=== PATIENT | male | born 1935 | race American Indian/Alaskan Native ===

== ENCOUNTER 2017-02-09 06:52 | Inpatient (IN) | payer MEDICARE, MEDICAID ==
--- NOTE | 2017-02-09 07:10 | C.PDOC ---
History Of Present Illness 82-year-old male, PMHx includes Hypertension, CVA (residual right sided deficit ) Anemia and Dementia, is sent to the emergency department via EMS [facility] with complaints of bleeding from penis for the past two days. All other Hx limited due to clinical condition. PMD Jimy Ryan MD. Time Seen by Provider: 02/09/17 07:10 Chief Complaint (Nursing): Male Genitourinary History Per: EMS History/Exam Limitations: clinical condition Onset/Duration Of Symptoms: Days Current Symptoms Are (Timing): Still Present Past Medical History Reviewed: Historical Data, Nursing Documentation, Vital Signs Vital Signs: Last Vital Signs Temp 99 F 02/09/17 09:43 Pulse 99 H 02/09/17 09:43 Resp 22 02/09/17 09:43 BP 146/71 02/09/17 09:43 Pulse Ox 98 02/09/17 10:14 - Medical History PMH: Anemia, Dementia, HTN Family History: States: Unknown Family Hx - Social History Hx Tobacco Use: No Hx Alcohol Use: No Hx Substance Use: No - Immunization History Hx Tetanus Toxoid Vaccination: No Hx Influenza Vaccination: No Hx Pneumococcal Vaccination: No Review Of Systems Review Of Systems: ROS cannot be obtained secondary to pt's inabilty to answer questions. Respiratory: Negative for: Shortness of Breath Gastrointestinal: Negative for: Vomiting Genitourinary: Positive for: Other (bleeding from meatus) Physical Exam - Physical Exam Appears: Non-toxic, Chronically Ill Skin: Warm, Dry, No Rash Head: Atraumatic, Normacephalic Nose: Normal Oral Mucosa: Moist Lips: Normal Appearing Neck: Supple Cardiovascular: Rhythm Regular Respiratory: Normal Breath Sounds, No Accessory Muscle Use Gastrointestinal/Abdominal: Soft, No Distention, No Guarding, Other (G-tube: upper abdomen) Male Genital: Other (Blood at the meatus but no active bleeding) Neurological/Psych: Other (Non-verbal at baseline. Chronic right sided deficit.) ED Course And Treatment - Laboratory Results Result Diagrams: 02/09/17 09:22 02/09/17 09:22 O2 Sat by Pulse Oximetry: 98 Medical Decision Making Medical Decision Making: gorss hematuria cleared w 3 way catheter irrigation, still having blood tinged urine. [address] Ryan who will admit. consulted Dr Jimenez Disposition - Disposition Disposition: HOSPITALIZED Disposition Time: 10:14 Condition: STABLE - Clinical Impression Clinical Impression: Hematuria - Scribe Statement The provider has reviewed the documentation as recorded by the Tomibmaximino Quintero All medical record entries made by the Tomibe were at my direction and personally dictated by me. I have reviewed the chart and agree that the record accurately reflects my personal performance of the history, physical exam, medical decision making, and the department course for this patient. I have also personally directed, reviewed, and agree with the discharge instructions and disposition.
[2017-02-09 09:31] LABS: MEAN CORPUSCULAR HEMOGLOBIN 32.3 pg (27.0-31.0); MONO # 0.8 K/uL (0.0-0.8)
[2017-02-09 09:38] LABS: BASO # 0.1 K/uL (0.0-0.2); BASO % 0.8 % (0.0-2.0); CHLORIDE 96 mmol/L (98-107); EOS # 0.1 K/uL (0.0-0.7); EOS % 0.7 % (0.0-4.0); LYMPH # 1.2 K/uL (1.0-4.3); LYMPH % 12.7 % (20.0-40.0); MEAN CELL VOLUME 97.7 fL (80.0-94.0); MEAN CORPUSCULAR HGB CONC 33.1 g/dL (33.0-37.0); MEAN PLATELET VOLUME 9.2 fL (7.2-11.7); MONO % 8.2 % (0.0-10.0); POTASSIUM 4.3 mmol/L (3.6-5.2); RED CELL DISTRIBUTION WIDTH 14.8 % (11.5-14.5); SODIUM 134 mmol/L (132-148)
[2017-02-09 09:40] LABS: AST/SGOT 43 U/L (17-59); BILIRUBIN,TOTAL 0.7 mg/dL (0.2-1.3); GFR AFRICAN-AMERICAN > 60; WHITE BLOOD COUNT 9.5 K/uL (4.8-10.8)
[2017-02-09 09:41] LABS: ALB/GLOB RATIO 0.9 (1.0-2.1); ALKALINE PHOSPHATASE 101 U/L (38-126); ALT/SGPT 42 U/L (21-72); BLOOD UREA NITROGEN 18 mg/dL (9-20); CALCIUM 8.8 mg/dl (8.6-10.4); CARBON DIOXIDE 25 mmol/L (22-30); GLUCOSE,RANDOM 128 mg/dL (75-110); TOTAL PROTEIN 7.3 g/dL (6.3-8.3)
[2017-02-09 10:02] LABS: URINE BILIRUBIN NEGATIVE (NEGATIVE); URINE BLOOD LARGE (NEGATIVE); URINE COLOR RED (YELLOW); URINE GLUCOSE (UA) NEGATIVE (Normal); URINE KETONE NEGATIVE (NEGATIVE)
[2017-02-09 10:03] LABS: PH,URINE 7.5 (5.0-8.0); RBC URINE 300 /hpf (0-3); URINE LEUKOCYTE ESTERASE NEGATIVE Leu/uL (Negative); URINE PROTEIN 100 mg/dL (NEGATIVE); URINE UROBILINOGEN 0.2 mg/dL (0.2-1.0); WBC URINE 2 /hpf (0-5)
[2017-02-09] MEDS ORDERED: cefTRIAXone IV 1 gm in Dextros 50 ML IVPB ONE (10:33)
[2017-02-09] MEDS ORDERED: Sodium Chloride 0.9% 1,000 ML ONE (11:19)
[2017-02-09] MEDS: Sodium Chloride 0.9% 1,000 ML IV SCH (11:40)
[2017-02-09] MEDS: Cefepime IV 1 gm in Dextrose 50 ML IVPB SCH ×2 (11:40→19:57)
--- NOTE | 2017-02-09 11:49 | CP.PCM.PN ---
Subjective - Date & Time of Evaluation Date of Evaluation: 02/09/17 Time of Evaluation: 09:35 - Subjective Subjective: Dr. Ryan service: Patient seen and examined in the ED at bedside. Patient is awake and follows some commands but is non verbal. Patient history comes from the nursing staff in the ED and the ED attending. Patient was apprently having 2 days of gross hematuria. Unable to obtain any other history from patient. Per ED staff patient comes from half-way, has history of dementia, is non verbal. Also has history of CVA as well. Per chart review patient had one previous ED visit. After medication reconillationa. He is on several blood pressure medications for blood pressure, Aspirin, and Eliquis and is taking medication via a PEG tube. Objective - Vital Signs/Intake and Output Vital Signs (last 24 hours): Temp Pulse Resp BP Pulse Ox 99 F 90 22 161/80 H 100 02/09/17 09:43 02/09/17 11:41 02/09/17 11:41 02/09/17 11:41 02/09/17 11:41 - Medications Medications: Current Medications Sodium Chloride (Sodium Chloride 0.9%) 1,000 mls @ 70 mls/hr IV .[id number] [facility] Last Admin: 02/09/17 11:40 Dose: 70 mls/hr Cefepime HCl (Maxipime Iv 1 Gm Premix) 50 mls @ 100 mls/hr IVPB Q8H [facility] Last Admin: 02/09/17 11:40 Dose: 100 mls/hr - Constitutional Appears: Non-toxic, No Acute Distress - Eye Exam Eye Exam: Normal appearance - ENT Exam ENT Exam: Normal Exam - Respiratory Exam Respiratory Exam: Clear to Ausculation Bilateral. absent: Rhonchi, Wheezes - Cardiovascular Exam Cardiovascular Exam: REGULAR RHYTHM, RRR, +S1, +S2. absent: Gallop, Rubs - GI/Abdominal Exam GI & Abdominal Exam: Soft, Normal Bowel Sounds Additional comments: Epigastric PEG tube in place - Extremities Exam Extremities Exam: Pedal Edema. absent: Normal Inspection - Neurological Exam Neurological Exam: Alert - Psychiatric Exam Psychiatric exam: Normal Affect, Normal Mood Assessment and Plan (1) Hematuria Assessment & Plan: Patient has a goodrich catheter in place with irrigation. His Hbg is 10.9, about a year ago it was 14.4, will need monitor patient closely. Dr. Jimenez consulted, Cefepime started 1gram Q8H after 1 gram of Rocephin given in the ED. Follow up urine culture, morning cbc, cmp, mag, phos, follow up urine culture Status: Acute (2) Anemia Assessment & Plan: see note on hematuria Status: Acute (3) Dementia Assessment & Plan: continue home medication, put patient on fall precuation. He may need 1:1. Status: Chronic (4) HTN (hypertension) Assessment & Plan: continue home medication Status: Chronic (5) Diabetes mellitus Assessment & Plan: continue home medication, accu checks ACHS with sliding scale as needed. Status: Chronic (6) BPH (benign prostatic hyperplasia) Assessment & Plan: continue Flomax Status: Acute (7) History of CVA (cerebrovascular accident) without residual deficits Assessment & Plan: Hold Aspirin for now, continue her home statin. Patient most likely has a history of Afib if he is on Eliquis and has a history of stroke. Status: Acute (8) Prophylactic measure Assessment & Plan: pepcid 20mg via PEG SCDS hold any Aspirin or anticoagulation due to active bleeding. Will start tube feeding tomorrow. Status: Acute
[2017-02-09] MEDS ORDERED: Magnesium Hydroxide Susp 30 ml UD PEG PRN (14:53)
[2017-02-09] MEDS ORDERED: Loperamide Hydrochloride 1 mg/5 ml Cup PEG PRN (15:32)
--- NOTE | 2017-02-09 16:16 | PCM.URO ---
Urology Progress Note - Objective Lab Results Last 24 Hours: Laboratory Results - last 24 hr 02/09/17 11:39 POC Glucose (mg/dL) 154 H Intake & Output: Intake & Output 02/08/17 02/09/17 02/09/17 18:59 06:59 18:59 Other: Voiding Method 3-way Kapadia with CBI Vital Signs: Vital Signs - 24 hr 02/09/17 02/09/17 02/09/17 10:19 11:41 12:11 Temperature 98.5 F Pulse Rate 90 85 Respiratory 22 20 Rate Blood Pressure 161/80 H 155/69 H O2 Sat by Pulse 98 100 100 Oximetry
[2017-02-09] MEDS ORDERED: (Novolin R) Insulin Human Regular 100 units/ml vial SC SCH (16:30)
[2017-02-09] MEDS: (Novolin R) Insulin Human Regular 100 units/ml vial SC SCH ×2 (17:25→21:43)
[2017-02-10] MEDS: Sodium Chloride 0.9% 1,000 ML IV SCH ×2 (02:00→15:52)
[2017-02-10] MEDS: Cefepime IV 1 gm in Dextrose 50 ML IVPB SCH ×2 (03:10→10:41)
[2017-02-10 07:16] LABS: BASO % 0.2 % (0.0-2.0); HEMATOCRIT 30.6 % (35.0-51.0); LYMPH # 0.9 K/uL (1.0-4.3); LYMPH % 7.5 % (20.0-40.0); MEAN CELL VOLUME 97.3 fL (80.0-94.0); MEAN CORPUSCULAR HEMOGLOBIN 31.4 pg (27.0-31.0); MEAN CORPUSCULAR HGB CONC 32.3 g/dL (33.0-37.0); MEAN PLATELET VOLUME 8.5 fL (7.2-11.7); MONO # 0.9 K/uL (0.0-0.8); MONO % 7.5 % (0.0-10.0); PLATELET COUNT 239 K/uL (130-400); WHITE BLOOD COUNT 12.2 K/uL (4.8-10.8)
[2017-02-10 07:32] LABS: CHLORIDE 97 mmol/L (98-107)
[2017-02-10 07:33] LABS: POTASSIUM 3.7 mmol/L (3.6-5.2); SODIUM 137 mmol/L (132-148)
[2017-02-10 07:35] LABS: ALKALINE PHOSPHATASE 106 U/L (38-126); ALT/SGPT 41 U/L (21-72); AST/SGOT 31 U/L (17-59); BILIRUBIN,TOTAL 0.7 mg/dL (0.2-1.3); BLOOD UREA NITROGEN 20 mg/dL (9-20); CARBON DIOXIDE 26 mmol/L (22-30); GFR AFRICAN-AMERICAN > 60; GLUCOSE,RANDOM 168 mg/dL (75-110); TOTAL PROTEIN 7.2 g/dL (6.3-8.3)
[2017-02-10 07:36] LABS: CALCIUM 8.3 mg/dl (8.6-10.4); MAGNESIUM 1.7 mg/dL (1.6-2.3); PHOSPHOROUS 3.2 mg/dL (2.5-4.5)
[2017-02-10 08:18] LABS: PROSTATE SPECIFIC ANTIGEN 16.8 ng/mL (0.00-4.0)
[2017-02-10] MEDS: (Novolin R) Insulin Human Regular 100 units/ml vial SC SCH ×4 (08:58→23:11)
[2017-02-10 09:03] LABS: NEUTROPHIL 85 % (50-75); TOTAL CELLS COUNTED 100
[2017-02-10 09:04] LABS: LARGE PLATELETS PRESENT
[2017-02-10] MEDS: Cefepime 1 GM in Sodium Chloride 0.9% 100 ML IVPB SCH (20:21)
[2017-02-11] MEDS: Cefepime 1 GM in Sodium Chloride 0.9% 100 ML IVPB SCH ×3 (02:33→18:31)
[2017-02-11] MEDS: (Novolin R) Insulin Human Regular 100 units/ml vial SC SCH ×4 (08:30→21:52)
--- NOTE | 2017-02-11 15:50 | CP.PCM.CON ---
History of Present Illness - History of Present Illness History of Present Illness: 82-year-old male, PMHx includes Hypertension, CVA (residual right sided deficit ) Anemia and Dementia, is sent to the emergency department via EMS from [facility] with complaints of bleeding from penis for the past two days. All other Hx limited due to clinical condition. admitted to r/o uroosepsis , malignancy iv rx and CBI in progress - Medical History PMH: Anemia, Dementia, HTN Family History: States: Unknown Family Hx Review of Systems - Review of Systems Systems not reviewed;Unavailable: Altered Mental Status - Constitutional Constitutional: absent: As Per HPI, Anorexia, Chills, Daytime Sleepiness, Excessive Sweating, Fatigue, Fever, Frequent Falls, Headache, Increased Appetite , Lethargy, Malaise, Night Sweats, Snoring, Sleep Apnea, Weight Gain, Weight Loss, Weakness, Other - EENT Eyes: absent: As Per HPI, Blind Spots, Blurred Vision, Change in Vision, Decreased Night Vision, Diplopia, Discharge, Dry Eye, Exophthalmos, Floaters, Irritation, Itchy Eyes, Loss of Peripheral Vision, Pain, Photophobia, Requires Corrective Lenses, Sees Flashes, Spots in Vision, Tunnel Vision, Other Visual Disturbances, Loss of Vision, Other Ears: absent: As Per HPI, Decreased Hearing, Ear Discharge, Ear Pain, Tinnitus, Abnormal Hearing, Disequilibrium, Dizziness, Other - Cardiovascular Cardiovascular: absent: As Per HPI, Acrocyanosis, Chest Pain, Chest Pain at Rest , Chest Pain with Activity, Claudication, Diaphoresis, Dyspnea, Dyspnea on Exertion, Edema, Irregular Heart Rhythm, Pain Radiating to Arm/Neck/Jaw, Leg Edema, Leg Ulcers, Lightheadedness, Orthopnea, Palpitations, Paroxysmal Nocturnal Dyspnea, Pedal Edema, Radiating Pain, Rapid Heart Rate, Slow Heart Rate, Syncope, Other - Respiratory Respiratory: absent: As Per HPI, Cough, Dyspnea, Hemoptysis, Dyspnea on Exertion , Wheezing, Snoring, Stridor, Pain on Inspiration, Chest Congestion, Excessive Mucous Production, Change in Mucous Color, Pain with Coughing, Other - Gastrointestinal Gastrointestinal: absent: As Per HPI, Abdominal Pain, Belching, Bloating, Change in Bowel Habits, Change in Stool Character, Coffee Ground Emesis, Constipation, Cramping, Diarrhea, Dyspepsia, Dysphagia, Early Satiety, Excessive Flatus, Fecal Incontinence, Heartburn, Hematemesis, Hematochezia, Loose Stools, Melena, Nausea, Odynophagia, Temesmus, Vomiting, Other - Genitourinary Genitourinary: As Per HPI - Musculoskeletal Musculoskeletal: absent: As Per HPI, Abnormal Gait, Arthralgias, Atrophy, Back Pain, Deformity, Joint Swelling, Limited Range of Motion, Loss of Height, Muscle Cramps, Muscle Weakness, Myalgias, Neck Pain, Numbness, Radiating Pain into Limb, Stiffness, Tingling, Other - Integumentary Integumentary: absent: As Per HPI, Acne, Alopecia, Bleeding Lesions, Change in Hair, Change in Nails, Change in Pigmentation, Changing Lesions, Dry Skin, Erythema, Furuncle, Hirsutism, Lesions, New Lesions, Non-Healing Lesions, Photosensitivity, Pruritus, Rash, Skin Pain, Skin Ulcer, Sores, Striae, Swelling , Unusual Bruising, Wounds, Jaundice, Other - Neurological Neurological: absent: As Per HPI, Abnormal Gait, Abnormal Hearing, Abnormal Movements, Abnormal Speech, Behavioral Changes, Burning Sensations, Confusion, Convulsions, Disequilibrium, Dizziness, Numbness, Focal Weakness, Frequent Falls , Headaches, Lack of Coordination, Loss of Vision, Memory Loss, Paresthesias, Radicular Pain, Restless Legs, Sensory Deficit, Syncope, Tingling, Tremor, Vertigo, Weakness, Other Visual Disturbances, Other - Psychiatric Psychiatric: absent: As Per HPI, Abnormal Sleep Pattern, Anhedonia, Anxiety, Auditory Hallucinations, Behavioral Changes, Change in Appetite, Change in Libido, Confusion, Depression, Difficulty Concentrating, Hallucinations, Homicidal Ideation, Hopelessness, Irritability, Memory Loss, Mood Swings, Panic Attacks, Paranoia, Suicidal Ideation, Visual Hallucinations, Tactile Hallucinations, Other - Endocrine Endocrine: absent: As Per HPI, Change in Body Appearance, Change in Libido, Cold Intolorance, Deepening of Voice, Excessive Sweating, Fatigue, Flushing, Heat Intolorance, Increase in Ring/Shoe/Hat Size, Palpitations, Polydipsia, Polyphagia, Polyuria, Other - Hematologic/Lymphatic Hematologic: absent: As Per HPI, Easy Bleeding, Easy Bruising, Lymphadenopathy, Other 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) - ENDOCRINE/METABOLIC Hx Diabetes Mellitus Type 2: Yes - HEMATOLOGICAL/ONCOLOGICAL Hx Anemia: Yes - MUSCULOSKELETAL/RHEUMATOLOGICAL Hx Falls: No - GENITOURINARY/GYNECOLOGICAL Hx Prostate Problems: Yes - PSYCHIATRIC Hx Substance Use: No - SURGICAL HISTORY Hx Orthopedic Surgery: Yes (right hip sx) Other/Comment: g-tube - ANESTHESIA Hx Anesthesia: Yes Hx Anesthesia Reactions: No Meds Allergies/Adverse Reactions: Allergies Allergy/AdvReac Type Severity Reaction Status Date / Time No Known Allergies Allergy Verified 09/04/16 15:50 - Medications Medications: Current Medications Amlodipine Besylate (Norvasc) [address] [facility] Last Admin: 02/11/17 10:37 Dose: 10 mg Apixaban (Eliquis) [address] [facility] Aspirin (Aspirin Chewable) [address] [facility] Doxazosin Mesylate (Cardura) [address] [facility] Last Admin: 02/11/17 10:37 Dose: 2 mg Enalapril Maleate (Vasotec) [address] [facility] Last Admin: 02/10/17 17:40 Dose: 10 mg Famotidine (Pepcid) [address] [facility] Last Admin: 02/11/17 10:37 Dose: 20 mg Hydralazine HCl (Apresoline) [address] [facility] Last Admin: 02/11/17 14:18 Dose: 50 mg Sodium Chloride (Sodium Chloride 0.9%) 1,000 mls @ 70 mls/hr IV .[id number] [facility] Last Admin: 02/10/17 15:52 Dose: 70 mls/hr Cefepime HCl 1 gm/ Sodium (Chloride) 100 mls @ 100 mls/hr IVPB Q8H [facility] Last Admin: 02/11/17 10:36 Dose: 100 mls/hr Insulin Human Regular (Novolin R) [address] [facility] PRN Reason: Protocol Last Admin: 02/11/17 12:04 Dose: Not Given Loperamide HCl (Imodium) 2 mg PEG Q6H PRN PRN Reason: Diarrhea Magnesium Hydroxide (Milk Of Magnesia) 30 ml PEG HS PRN PRN Reason: Constipation Metformin HCl (Glucophage) [address] [facility] Last Admin: 02/11/17 10:37 Dose: 500 mg Metoprolol Tartrate (Lopressor) [address] [facility] Last Admin: 02/11/17 06:26 Dose: Not Given Rosuvastatin Calcium (Crestor) [address] [facility] Last Admin: 02/10/17 21:44 Dose: 40 mg Physical Exam - Constitutional Appears: Confused, Chronically Ill - Head Exam Head Exam: ATRAUMATIC, NORMAL INSPECTION, NORMOCEPHALIC - Eye Exam Eye Exam: PERRL. absent: Scleral icterus Pupil Exam: NORMAL ACCOMODATION - ENT Exam ENT Exam: Mucous Membranes Dry, Normal External Ear Exam - Neck Exam Neck exam: Negative for: Lymphadenopathy - Respiratory Exam Respiratory Exam: Decreased Breath Sounds, Rhonchi - Cardiovascular Exam Cardiovascular Exam: REGULAR RHYTHM, +S1, +S2 - GI/Abdominal Exam GI & Abdominal Exam: Diminished Bowel Sounds, Soft. absent: Tenderness - Rectal Exam Rectal Exam: Deferred - Exam Exam: NORMAL INSPECTION - Extremities Exam Extremities exam: Positive for: pedal pulses present. Negative for: calf tenderness, pedal edema, tenderness - Back Exam Back exam: absent: CVA tenderness (L), CVA tenderness (R), paraspinal tenderness - Neurological Exam Neurological exam: Alert, Altered, CN II-XII Intact - Psychiatric Exam Psychiatric exam: Depressed - Skin Skin Exam: Dry Results - Vital Signs Recent Vital Signs: Last Vital Signs Temp 98.8 F 02/11/17 15:22 Pulse 76 02/11/17 15:22 Resp 20 02/11/17 15:22 BP 149/75 02/11/17 15:22 Pulse Ox 100 02/11/17 15:22 - Labs Result Diagrams: 02/10/17 07:08 02/10/17 07:08 Labs: Laboratory Results - last 24 hr 02/10/17 02/10/17 02/11/17 16:32 21:32 06:19 POC Glucose (mg/dL) 127 H 127 H 104 02/11/17 11:30 POC Glucose (mg/dL) 129 H Assessment & Plan (1) Anemia Status: Acute (2) BPH (benign prostatic hyperplasia) Status: Acute (3) CAD (coronary artery disease) Status: Acute (4) Hematuria Status: Acute (5) History of CVA (cerebrovascular accident) without residual deficits Status: Acute (6) Diabetes mellitus Status: Chronic (7) HTN (hypertension) Status: Chronic (8) UTI (urinary tract infection) Status: Acute - Assessment and Plan (Free Text) Assessment: orders written will folllow
[2017-02-11] MEDS: Sodium Chloride 0.9% 1,000 ML IV SCH (19:42)
[2017-02-12] MEDS: Cefepime 1 GM in Sodium Chloride 0.9% 100 ML IVPB SCH ×3 (04:10→18:36)
[2017-02-12] MEDS: Sodium Chloride 0.9% 1,000 ML IV SCH ×2 (05:35→11:05)
[2017-02-12] MEDS: (Novolin R) Insulin Human Regular 100 units/ml vial SC SCH ×4 (07:33→21:41)
[2017-02-12 08:20] LABS: BASO # 0.1 K/uL (0.0-0.2); BASO % 0.8 % (0.0-2.0); EOS # 0.2 K/uL (0.0-0.7); EOS % 1.9 % (0.0-4.0); LYMPH # 1.2 K/uL (1.0-4.3); LYMPH % 13.2 % (20.0-40.0); MEAN CELL VOLUME 97.8 fL (80.0-94.0); MEAN CORPUSCULAR HEMOGLOBIN 32.2 pg (27.0-31.0); MEAN CORPUSCULAR HGB CONC 32.9 g/dL (33.0-37.0); MEAN PLATELET VOLUME 8.7 fL (7.2-11.7); MONO # 0.8 K/uL (0.0-0.8); MONO % 8.8 % (0.0-10.0); NRBC % 0.1 % (0.0-2.0); WHITE BLOOD COUNT 9.2 K/uL (4.8-10.8)
[2017-02-12 08:22] LABS: INR 1.2
[2017-02-12 08:25] LABS: CHLORIDE 103 mmol/L (98-107)
[2017-02-12 08:26] LABS: POTASSIUM 3.5 mmol/L (3.6-5.2); SODIUM 138 mmol/L (132-148)
[2017-02-12 08:28] LABS: BILIRUBIN,TOTAL 0.5 mg/dL (0.2-1.3); GFR AFRICAN-AMERICAN > 60
[2017-02-12 08:29] LABS: ALB/GLOB RATIO 0.9 (1.0-2.1); ALKALINE PHOSPHATASE 78 U/L (38-126); ALT/SGPT 39 U/L (21-72); AST/SGOT 34 U/L (17-59); BLOOD UREA NITROGEN 21 mg/dL (9-20); CALCIUM 8.2 mg/dl (8.6-10.4); CARBON DIOXIDE 22 mmol/L (22-30); GLUCOSE,RANDOM 92 mg/dL (75-110)
[2017-02-12] MEDS ORDERED: Potassium Chloride 20 mEq/15 ml LIQ UD PEG ONE (08:29)
--- NOTE | 2017-02-12 08:29 | CP.PCM.PN ---
Subjective - Date & Time of Evaluation Date of Evaluation: 02/12/17 Time of Evaluation: 07:15 - Subjective Subjective: PGY2 Medicine Note - Dr. Ryan's service: Patient seen and examined at bedside this AM. Patient not following commands. Patient localizes pain. Patient is nonverbal. Unable to obtain ROS. Objective - Vital Signs/Intake and Output Vital Signs (last 24 hours): Temp Pulse Resp BP Pulse Ox 98.4 F 86 20 154/74 H 96 02/12/17 00:00 02/12/17 00:00 02/12/17 00:00 02/12/17 05:38 02/12/17 00:00 Intake and Output: 02/12/17 02/12/17 06:59 18:59 Intake Total 4130 Output Total 3950 600 Balance 180 -600 - Medications Medications: Current Medications Amlodipine Besylate (Norvasc) 10 mg PEG DAILY [facility] Last Admin: 02/11/17 10:37 Dose: 10 mg Apixaban (Eliquis) 5 mg PEG BID [facility] Aspirin (Aspirin Chewable) 81 mg PEG BID [facility] Doxazosin Mesylate (Cardura) 2 mg PEG DAILY [facility] Last Admin: 02/11/17 10:37 Dose: 2 mg Enalapril Maleate (Vasotec) 10 mg GT Q12H [facility] Last Admin: 02/12/17 05:34 Dose: 10 mg Famotidine (Pepcid) 20 mg PEG DAILY [facility] Last Admin: 02/11/17 10:37 Dose: 20 mg Hydralazine HCl (Apresoline) 50 mg PEG Q8H [facility] Last Admin: 02/12/17 07:28 Dose: 50 mg Sodium Chloride (Sodium Chloride 0.9%) 1,000 mls @ 70 mls/hr IV .[id number] [facility] Last Admin: 02/12/17 05:35 Dose: 70 mls/hr Cefepime HCl 1 gm/ Sodium (Chloride) 100 mls @ 100 mls/hr IVPB Q8H [facility] Last Admin: 02/12/17 04:10 Dose: 100 mls/hr Insulin Human Regular (Novolin R) 0 unit SC ACHS [facility] PRN Reason: Protocol Last Admin: 02/12/17 07:33 Dose: Not Given Loperamide HCl (Imodium) 2 mg PEG Q6H PRN PRN Reason: Diarrhea Magnesium Hydroxide (Milk Of Magnesia) 30 ml PEG HS PRN PRN Reason: Constipation Metformin HCl (Glucophage) 500 mg PEG BID [facility] Last Admin: 02/11/17 17:32 Dose: 500 mg Metoprolol Tartrate (Lopressor) 75 mg PEG Q12H [facility] Last Admin: 02/12/17 05:38 Dose: 75 mg Rosuvastatin Calcium (Crestor) 40 mg PEG HS [facility] Last Admin: 02/11/17 21:54 Dose: 40 mg - Labs Labs: 02/10/17 07:08 02/10/17 07:08 - Constitutional Appears: Non-toxic, No Acute Distress, Chronically Ill - Head Exam Head Exam: NORMAL INSPECTION - Eye Exam Eye Exam: Normal appearance - ENT Exam ENT Exam: Mucous Membranes Moist - Respiratory Exam Respiratory Exam: Clear to Ausculation Bilateral, NORMAL BREATHING PATTERN. absent: Rales, Rhonchi, Wheezes - Cardiovascular Exam Cardiovascular Exam: REGULAR RHYTHM, +S1, +S2 - GI/Abdominal Exam GI & Abdominal Exam: Soft, Tenderness, Normal Bowel Sounds - Extremities Exam Extremities Exam: Pedal Edema (2+) - Neurological Exam Neurological Exam: Awake. absent: Oriented x3 - Skin Skin Exam: Normal Color, Warm Assessment and Plan - Assessment and Plan (Free Text) Assessment: (1) Hematuria Assessment & Plan: Patient has a goodrich catheter in place with irrigation. Hgb has dropped to 8.2 today from 10.9 on admission. Monitor closely - CBC Q8H. Type and cross placed. urine culture negative Dr. Jimenez consulted, Cefepime started 1gram Q8H after 1 gram of Rocephin given in the ED. Status: Acute (2) Anemia Assessment & Plan: macrocytic increased RDW see note on hematuria Status: Acute (3) Dementia Assessment & Plan: continue home medication, put patient on fall precuation. He may need 1:1. Status: Chronic (4) HTN (hypertension) Assessment & Plan: continue home medication Status: Chronic (5) Diabetes mellitus Assessment & Plan: continue home medication, accu checks ACHS with sliding scale as needed. Status: Chronic (6) BPH (benign prostatic hyperplasia) Assessment & Plan: continue Flomax Status: Acute (7) History of CVA (cerebrovascular accident) without residual deficits Assessment & Plan: Hold Aspirin for now, continue home statin. Patient most likely has a history of Afib if he is on Eliquis and has a history of stroke. Status: Acute (8) Prophylactic measure Assessment & Plan: pepcid 20mg via PEG SCDS hold any Aspirin or anticoagulation due to active bleeding. tube feeding Status: Acute
[2017-02-12] MEDS ORDERED: Potassium Chloride 20 mEq 100 ML IVPB ONE (08:58)
--- NOTE | 2017-02-12 09:17 | PN ---
DATE: 02/10/2017 The patient is complaining of abdominal pain and chest discomfort, bronchodilator given, supportive c are. Jimy Saucedo MD cc: [id number] TT: 02/11/2017 00:47:38 Confirmation # [id number] Dictation # [id number] 02/12/2017 08:16:39
--- NOTE | 2017-02-12 12:06 | CP.PCM.PN ---
Subjective - Date & Time of Evaluation Date of Evaluation: 02/12/17 Time of Evaluation: 09:00 - Subjective Subjective: weak but nad afebrile iv rx in progress culturees reviewed Objective - Vital Signs/Intake and Output Vital Signs (last 24 hours): Temp Pulse Resp BP Pulse Ox 98.2 F 73 20 147/75 98 02/12/17 10:13 02/12/17 10:13 02/12/17 10:13 02/12/17 10:13 02/12/17 10:13 Intake and Output: 02/12/17 02/12/17 06:59 18:59 Intake Total 4130 Output Total 3950 600 Balance 180 -600 - Medications Medications: Current Medications Amlodipine Besylate (Norvasc) 10 mg PEG DAILY [facility] Last Admin: 02/12/17 09:19 Dose: Not Given Apixaban (Eliquis) 5 mg PEG BID [facility] Aspirin (Aspirin Chewable) 81 mg PEG BID [facility] Doxazosin Mesylate (Cardura) 2 mg PEG DAILY [facility] Last Admin: 02/12/17 09:19 Dose: Not Given Enalapril Maleate (Vasotec) 10 mg GT Q12H [facility] Last Admin: 02/12/17 05:34 Dose: 10 mg Famotidine (Pepcid) 20 mg PEG DAILY [facility] Last Admin: 02/12/17 09:40 Dose: Not Given Hydralazine HCl (Apresoline) 50 mg PEG Q8H [facility] Last Admin: 02/12/17 07:28 Dose: 50 mg Sodium Chloride (Sodium Chloride 0.9%) 1,000 mls @ 70 mls/hr IV .[id number] [facility] Last Admin: 02/12/17 11:05 Dose: Not Given Cefepime HCl 1 gm/ Sodium (Chloride) 100 mls @ 100 mls/hr IVPB Q8H [facility] Last Admin: 02/12/17 11:48 Dose: 100 mls/hr Insulin Human Regular (Novolin R) 0 unit SC ACHS [facility] PRN Reason: Protocol Last Admin: 02/12/17 07:33 Dose: Not Given Loperamide HCl (Imodium) 2 mg PEG Q6H PRN PRN Reason: Diarrhea Magnesium Hydroxide (Milk Of Magnesia) 30 ml PEG HS PRN PRN Reason: Constipation Metformin HCl (Glucophage) 500 mg PEG BID [facility] Last Admin: 02/12/17 09:19 Dose: Not Given Metoprolol Tartrate (Lopressor) 75 mg PEG Q12H [facility] Last Admin: 02/12/17 05:38 Dose: 75 mg Rosuvastatin Calcium (Crestor) 40 mg PEG HS [facility] Last Admin: 02/11/17 21:54 Dose: 40 mg - Labs Labs: 02/12/17 08:12 02/12/17 08:12 PT 13.8 SECONDS (9.7-12.2) H 02/12/17 08:12 INR 1.2 02/12/17 08:12 - Constitutional Appears: Non-toxic, Cachectic, Chronically Ill - Head Exam Head Exam: NORMOCEPHALIC - Eye Exam Eye Exam: absent: Scleral icterus - ENT Exam ENT Exam: Mucous Membranes Dry - Neck Exam Neck Exam: absent: Lymphadenopathy - Respiratory Exam Respiratory Exam: Decreased Breath Sounds, Rhonchi - Cardiovascular Exam Cardiovascular Exam: REGULAR RHYTHM, +S1, +S2 - GI/Abdominal Exam GI & Abdominal Exam: Distended, Soft - Rectal Exam Rectal Exam: Deferred - Exam Exam: NORMAL INSPECTION - Extremities Exam Extremities Exam: absent: Pedal Edema - Back Exam Back Exam: absent: CVA tenderness (L), CVA tenderness (R) - Neurological Exam Neurological Exam: Alert, Altered, Awake Assessment and Plan (1) Anemia Status: Acute (2) BPH (benign prostatic hyperplasia) Status: Acute (3) CAD (coronary artery disease) Status: Acute (4) Hematuria Status: Acute (5) History of CVA (cerebrovascular accident) without residual deficits Status: Acute (6) Diabetes mellitus Status: Chronic (7) HTN (hypertension) Status: Chronic (8) UTI (urinary tract infection) Status: Acute
[2017-02-12 14:21] LABS: HEMATOCRIT 26.2 % (35.0-51.0); MEAN CELL VOLUME 98.5 fL (80.0-94.0); MEAN CORPUSCULAR HEMOGLOBIN 31.6 pg (27.0-31.0); MEAN CORPUSCULAR HGB CONC 32.1 g/dL (33.0-37.0); MEAN PLATELET VOLUME 8.8 fL (7.2-11.7); WHITE BLOOD COUNT 10.1 K/uL (4.8-10.8)
--- NOTE | 2017-02-12 15:54 | PCM.URO ---
Urology Progress Note - Objective Lab Results Last 24 Hours: Laboratory Results - last 24 hr 02/11/17 02/11/17 02/12/17 16:40 21:26 07:50 WBC RBC Hgb Hct MCV MCH MCHC RDW Plt Count MPV Neut % (Auto) Lymph % (Auto) Glades % (Auto) Eos % (Auto) Baso % (Auto) Neut # Lymph # Glades # Eos # Baso # PT INR Sodium Potassium Chloride Carbon Dioxide Anion Gap BUN Creatinine Est GFR ( Amer) Est GFR (Non-Af Amer) POC Glucose (mg/dL) 127 H 129 H 103 Random Glucose Calcium Total Bilirubin AST ALT Alkaline Phosphatase Total Protein Albumin Globulin Albumin/Globulin Ratio Blood Type Antibody Screen Antibody Identification Antigen Identification 02/12/17 02/12/17 02/12/17 08:12 11:58 12:07 WBC 9.2 RBC 2.56 L Hgb 8.2 L Hct 25.0 L MCV 97.8 H MCH 32.2 H MCHC 32.9 L RDW 15.0 H Plt Count 204 MPV 8.7 Neut % (Auto) 75.3 H Lymph % (Auto) 13.2 L Glades % (Auto) 8.8 Eos % (Auto) 1.9 Baso % (Auto) 0.8 Neut # 6.9 Lymph # 1.2 Glades # 0.8 Eos # 0.2 Baso # 0.1 PT 13.8 H INR 1.2 Sodium 138 Potassium 3.5 L Chloride 103 Carbon Dioxide 22 Anion Gap 17 BUN 21 H Creatinine 0.7 L Est GFR ( Amer) > 60 Est GFR (Non-Af Amer) > 60 POC Glucose (mg/dL) 95 Random Glucose 92 Calcium 8.2 L Total Bilirubin 0.5 AST 34 ALT 39 Alkaline Phosphatase 78 Total Protein 6.0 L Albumin 2.8 L Globulin 3.2 Albumin/Globulin Ratio 0.9 L Blood Type O POSITIVE Antibody Screen Positive Antibody Identification Anti K Antigen Identification K Antigen - NEGATIVE 02/12/17 14:05 WBC 10.1 RBC 2.66 L Hgb 8.4 L Hct 26.2 L MCV 98.5 H MCH 31.6 H MCHC 32.1 L RDW 15.0 H Plt Count 214 MPV 8.8 Neut % (Auto) Lymph % (Auto) Glades % (Auto) Eos % (Auto) Baso % (Auto) Neut # Lymph # Glades # Eos # Baso # PT INR Sodium Potassium Chloride Carbon Dioxide Anion Gap BUN Creatinine Est GFR ( Amer) Est GFR (Non-Af Amer) POC Glucose (mg/dL) Random Glucose Calcium Total Bilirubin AST ALT Alkaline Phosphatase Total Protein Albumin Globulin Albumin/Globulin Ratio Blood Type Antibody Screen Antibody Identification Antigen Identification Intake & Output: Intake & Output 02/11/17 02/12/17 02/12/17 18:59 06:59 18:59 Intake Total 1140 4130 33652 Output Total 2950 3950 08059 Balance -1810 180 -200 Intake: Intake, IV Amount 760 470 Right 760 470 Oral 100 100 Tube Feeding 280 310 Other 3250 12589 Output: Urine 2950 3950 87854 Urethral (Kapadia) 2950 350 600 Other: # Bowel Movements 0 1 Vital Signs: Vital Signs - 24 hr 02/11/17 02/11/17 02/11/17 17:32 17:34 22:54 Temperature Pulse Rate 87 Respiratory Rate Blood Pressure 153/67 H 153/67 H 144/54 L O2 Sat by Pulse Oximetry 02/12/17 02/12/17 02/12/17 00:00 05:34 05:38 Temperature 98.4 F Pulse Rate 86 Respiratory 20 Rate Blood Pressure 130/64 154/74 H 154/74 H O2 Sat by Pulse 96 Oximetry 02/12/17 10:13 Temperature 98.2 F Pulse Rate 73 Respiratory 20 Rate Blood Pressure 147/75 O2 Sat by Pulse 98 Oximetry
--- NOTE | 2017-02-12 16:14 | PN ---
DATE: 02/12/2017 FURTHER HISTORY: Please see the history and physical, consultation, operative reports, consultation notes and updated progress notes. I have had a further chance to speak to the patient's . The patient's history from him is not as perfectly reliable. The patient's reports that he has a history of urethral stricture disease. We apparently did so me dilations, need to check some of those records in that regard. But, for now, the patient has been comfortable and resting comfortably. Our plan is with the gross hematuria and the urinary dysfunction. See the plan listed below. PHYSICAL EXAMINATION: GENERAL: Well-nourished male in no apparent distress, currently resting comfortably. ABDOMEN: Difficult to evaluate, but it may be slightly distended. There is no evidence of an acute abdomen, rebound, guarding, etc. The remainder of the exam, the patient has a normal male phallus. The catheter looks like it is okay . The CBI is not going very quickly. LABORATORY DATA: See chart. DIAGNOSES: Gross hematuria, urinary retention, voiding dysfunction, urethral stricture disease. PLAN: As follows: We are going to plan for a cysto IOU. We even thinking of doing it today. Based on scheduling reasons we would like to but for various mark eduling operating room reasons and the schedule reasons, we are not able to continue this now. So, therefore, especially at 82 years old, I have made a decision with the patient's , especially I discussed with her. We are going to feed the patient and then we are going to keep him n.p.o. and try to do the procedure first thing tomorrow morning on 02/13. Further plans will follow. Alec Jimenez MD cc: [phone] TT: 02/12/2017 16:14:39 Confirmation # [id number] Dictation # [id number] sn
--- NOTE | 2017-02-12 16:20 | PN ---
DATE: 02/11/2017 Please see the previously notes from consult from 02/09/2017. The patient is resting comfortably. Actually no interim complaints. The patient has gross hematuria. PHYSICAL EXAMINATION: GENERAL: In no apparent distress. VITAL SIGNS: Noted. GENITOURINARY: Kapadia catheter is in place. LABORATORY DATA: See chart. DIAGNOSES: Gross hematuria, urinary dysfunction, I believe history of urethral stricture. PLAN: The plan is as before. Will speak to the and will plan out the timing for a cystoscopy. We are going to shoot for 02/12/2017 if possible, depending on the schedule and the patient's clinic al course. Alec Jimenez MD cc: [id number] TT: 02/12/2017 16:19:47 Confirmation # [id number] Dictation # [id number] mn
--- NOTE | 2017-02-12 16:25 | CON ---
DATE: 02/09/2017 REASON FOR CONSULTATION: Hematuria. The patient's name is familiar to me. The patient is currently resting in his bed with a Kapadia. The consultation is for gross hematuria. See my plan below. PAST MEDICAL AND SURGICAL HISTORY: As listed on the chart. The patient is not able to give adequate history. SOCIAL HISTORY: He is . Apparently his was here earlier. REVIEW OF SYSTEMS: Listed above in the chart. PHYSICAL EXAMINATION: GENERAL: Well-nourished male in no apparent distress. GENITOURINARY: The abdomen is relatively difficult to tell if there is gross distention. He has a F oley catheter, a 3-way, in place. It does not look to be externally sitting too far out at the meatu s. It does seem to be draining. The CBI is connected but barely going. LABORATORIES: See chart. DIAGNOSES: Gross hematuria, anemia (low), and multiple medical issues. So I am going to begin to check my records. To my recollection, this is a very pleasant 82-year-old gentleman. He is lying here, comfortable, in no apparent distress. Vital signs are within normal li mits. We are going to investigate further. See what previous notes I have. I believe this patient has been seen previously with urethral stricture disease and will need to work this up and check out further information. I will plan to talk to his and see if we can obtain previous medical recor ds. In the interim, leave the Kapadia catheter in place. Will follow along. Thank you for the urology consult. Alec Jimenez MD cc: [id number] TT: 02/12/2017 16:25:29 Confirmation # [id number] Dictation # [id number] mn
[2017-02-13] MEDS: Cefepime 1 GM in Sodium Chloride 0.9% 100 ML IVPB SCH ×3 (02:32→20:36)
[2017-02-13] MEDS: Sodium Chloride 0.9% 1,000 ML IV SCH (02:34)
[2017-02-13 04:16] LABS: MEAN CELL VOLUME 98.3 fL (80.0-94.0); MEAN CORPUSCULAR HEMOGLOBIN 32.6 pg (27.0-31.0); MEAN CORPUSCULAR HGB CONC 33.1 g/dL (33.0-37.0); MEAN PLATELET VOLUME 8.1 fL (7.2-11.7); RED CELL DISTRIBUTION WIDTH 14.9 % (11.5-14.5); WHITE BLOOD COUNT 7.8 K/uL (4.8-10.8)
[2017-02-13 04:19] LABS: CHLORIDE 105 mmol/L (98-107)
[2017-02-13 04:20] LABS: POTASSIUM 3.5 mmol/L (3.6-5.2); SODIUM 138 mmol/L (132-148)
[2017-02-13 04:22] LABS: ALB/GLOB RATIO 0.9 (1.0-2.1); AST/SGOT 33 U/L (17-59); BILIRUBIN,TOTAL 0.4 mg/dL (0.2-1.3); BLOOD UREA NITROGEN 20 mg/dL (9-20); CARBON DIOXIDE 24 mmol/L (22-30); GFR AFRICAN-AMERICAN > 60; TOTAL PROTEIN 5.8 g/dL (6.3-8.3)
[2017-02-13 04:23] LABS: ALKALINE PHOSPHATASE 80 U/L (38-126); ALT/SGPT 43 U/L (21-72); CALCIUM 8.2 mg/dl (8.6-10.4); GLUCOSE,RANDOM 94 mg/dL (75-110)
[2017-02-13] MEDS ORDERED: Potassium Chloride 20 mEq 100 ML IVPB ONE (06:12)
[2017-02-13] MEDS: (Novolin R) Insulin Human Regular 100 units/ml vial SC SCH ×4 (07:36→21:21)
[2017-02-13] MEDS ORDERED: Etomidate 20 mg/10ml Inj IV ONE (07:52)
[2017-02-13] MEDS ORDERED: Propofol 10 mg/ml Inj (20 ML) ONE (08:06)
[2017-02-13] MEDS ORDERED: HYDROmorphone 0.5 mg/0.5 ml ISec IVP PRN ×2 (08:18→08:29)
[2017-02-13] MEDS ORDERED: Lactated Ringer's 1,000 ML IV ONE (08:23)
[2017-02-13] MEDS ORDERED: Potassium Chloride 20 mEq/15 ml LIQ UD PO SCH (10:00)
--- NOTE | 2017-02-13 11:20 | CP.PCM.PN ---
Subjective - Date & Time of Evaluation Date of Evaluation: 02/13/17 Time of Evaluation: 09:30 - Subjective Subjective: PGY2 Medicine Note - Dr. Ryan's service: Patient seen and examined at bedside this AM. Patient not following commands. Patient localizes pain. Patient is nonverbal. Unable to obtain ROS. Per nursing, patient has been having diarrhea. Objective - Vital Signs/Intake and Output Vital Signs (last 24 hours): Temp Pulse Resp BP Pulse Ox 97.9 F 65 20 139/65 97 02/13/17 09:56 02/13/17 09:56 02/13/17 09:56 02/13/17 09:56 02/13/17 09:56 Intake and Output: 02/13/17 02/13/17 06:59 18:59 Intake Total 3210 650 Output Total 2900 1400 Balance 310 -750 - Medications Medications: Current Medications Amlodipine Besylate (Norvasc) 10 mg PEG DAILY [facility] Last Admin: 02/12/17 09:19 Dose: Not Given Aspirin (Aspirin Chewable) 81 mg PEG BID [facility] Doxazosin Mesylate (Cardura) 2 mg PEG DAILY [facility] Last Admin: 02/12/17 09:19 Dose: Not Given Enalapril Maleate (Vasotec) 10 mg GT Q12H [facility] Last Admin: 02/13/17 06:03 Dose: Not Given Famotidine (Pepcid) 20 mg PEG DAILY [facility] Last Admin: 02/12/17 09:40 Dose: Not Given Hydralazine HCl (Apresoline) 50 mg PEG Q8H [facility] Last Admin: 02/13/17 06:01 Dose: Not Given Sodium Chloride (Sodium Chloride 0.9%) 1,000 mls @ 70 mls/hr IV .[id number] [facility] Last Admin: 02/13/17 02:34 Dose: 70 mls/hr Cefepime HCl 1 gm/ Sodium (Chloride) 100 mls @ 100 mls/hr IVPB Q8H [facility] Last Admin: 02/13/17 02:32 Dose: 100 mls/hr Insulin Human Regular (Novolin R) 0 unit SC ACHS [facility] PRN Reason: Protocol Last Admin: 02/13/17 07:36 Dose: Not Given Loperamide HCl (Imodium) 2 mg PEG Q6H PRN PRN Reason: Diarrhea Magnesium Hydroxide (Milk Of Magnesia) 30 ml PEG HS PRN PRN Reason: Constipation Metformin HCl (Glucophage) 500 mg PEG BID [facility] Last Admin: 02/12/17 17:30 Dose: 500 mg Metoprolol Tartrate (Lopressor) 75 mg PEG Q12H [facility] Last Admin: 02/13/17 05:55 Dose: Not Given Rosuvastatin Calcium (Crestor) 40 mg PEG HS [facility] Last Admin: 02/12/17 21:43 Dose: 40 mg - Labs Labs: 02/13/17 04:11 02/13/17 04:11 PT 13.8 SECONDS (9.7-12.2) H 02/12/17 08:12 INR 1.2 02/12/17 08:12 - Constitutional Appears: Non-toxic, No Acute Distress - Head Exam Head Exam: NORMAL INSPECTION - Eye Exam Eye Exam: EOMI - ENT Exam ENT Exam: Mucous Membranes Moist - Respiratory Exam Respiratory Exam: Clear to Ausculation Bilateral, NORMAL BREATHING PATTERN. absent: Rales, Rhonchi, Wheezes - Cardiovascular Exam Cardiovascular Exam: REGULAR RHYTHM, +S1, +S2 - GI/Abdominal Exam GI & Abdominal Exam: Soft, Normal Bowel Sounds. absent: Tenderness - Extremities Exam Extremities Exam: Normal Capillary Refill. absent: Pedal Edema - Neurological Exam Neurological Exam: Alert - Skin Skin Exam: Normal Color, Warm Assessment and Plan - Assessment and Plan (Free Text) Assessment: Hematuria Assessment & Plan: Cystoscopy showed uretheral damage Goodrich replaced Patient has a goodrich catheter in place with irrigation. Hgb has dropped to 8.2 today from 10.9 on admission. Monitor closely - CBC Q8H. Type and cross placed. urine culture negative Dr. Jimenez consulted, Cefepime started 1gram Q8H after 1 gram of Rocephin given in the ED. Status: Acute Anemia Assessment & Plan: macrocytic increased RDW Transfuse 2 units pRBCs today see note on hematuria Status: Acute Diarrhea Assessment & Plan: F/U c diff and stool studies Status: Acute Dementia Assessment & Plan: continue home medication, put patient on fall precuation. He may need 1:1. Status: Chronic HTN (hypertension) Assessment & Plan: continue home medication Status: Chronic Diabetes mellitus Assessment & Plan: continue home medication, accu checks ACHS with sliding scale as needed. 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 Patient most likely has a history of Afib if he is on Eliquis and has a history of stroke. Status: Acute Prophylactic measure Assessment & Plan: pepcid 20mg via PEG SCDS hold any Aspirin or anticoagulation due to active bleeding. tube feeding Status: Acute
[2017-02-14 01:42] LABS: HEMATOCRIT 31.4 % (35.0-51.0); MEAN CELL VOLUME 95.2 fL (80.0-94.0); MEAN CORPUSCULAR HGB CONC 32.6 g/dL (33.0-37.0); MEAN PLATELET VOLUME 8.8 fL (7.2-11.7); RED CELL DISTRIBUTION WIDTH 15.8 % (11.5-14.5); WHITE BLOOD COUNT 11.2 K/uL (4.8-10.8)
[2017-02-14] MEDS: Cefepime 1 GM in Sodium Chloride 0.9% 100 ML IVPB SCH (02:00)
[2017-02-14] MEDS: Sodium Chloride 0.9% 1,000 ML IV SCH (05:20)
[2017-02-14] MEDS: (Novolin R) Insulin Human Regular 100 units/ml vial SC SCH ×4 (07:43→21:35)
[2017-02-14 08:07] LABS: BASO # 0.1 K/uL (0.0-0.2); BASO % 0.6 % (0.0-2.0); EOS # 0.2 K/uL (0.0-0.7); EOS % 1.8 % (0.0-4.0); HEMATOCRIT 30.7 % (35.0-51.0); LYMPH # 1.2 K/uL (1.0-4.3); LYMPH % 11.6 % (20.0-40.0); MEAN CELL VOLUME 93.9 fL (80.0-94.0); MEAN CORPUSCULAR HEMOGLOBIN 31.5 pg (27.0-31.0); MEAN CORPUSCULAR HGB CONC 33.6 g/dL (33.0-37.0); MEAN PLATELET VOLUME 8.2 fL (7.2-11.7); MONO # 0.8 K/uL (0.0-0.8); MONO % 7.9 % (0.0-10.0); NRBC % 0.4 % (0.0-2.0); RED CELL DISTRIBUTION WIDTH 16.3 % (11.5-14.5); WHITE BLOOD COUNT 10.5 K/uL (4.8-10.8)
[2017-02-14 08:16] LABS: CHLORIDE 105 mmol/L (98-107); SODIUM 140 mmol/L (132-148)
[2017-02-14 08:17] LABS: POTASSIUM 3.6 mmol/L (3.6-5.2)
[2017-02-14 08:19] LABS: ALB/GLOB RATIO 0.9 (1.0-2.1); ALKALINE PHOSPHATASE 97 U/L (38-126); ALT/SGPT 32 U/L (21-72); AST/SGOT 28 U/L (17-59); BILIRUBIN,TOTAL 0.5 mg/dL (0.2-1.3); BLOOD UREA NITROGEN 18 mg/dL (9-20); CARBON DIOXIDE 23 mmol/L (22-30); GFR AFRICAN-AMERICAN > 60; GLUCOSE,RANDOM 112 mg/dL (75-110)
[2017-02-14 08:20] LABS: CALCIUM 8.4 mg/dl (8.6-10.4)
[2017-02-14] MEDS ORDERED: Albuterol-Ipratrop 3 mg / 0.5 (3 ml) UD INH ONE (09:06)
--- NOTE | 2017-02-14 09:56 | RAD ---
HISTORY: accessory muscle use, dyspnea COMPARISON: No prior. FINDINGS: LUNGS: Ill-defined left basilar opacity. Right suprahilar opacity, ill-defined.o Possible early pneumonia. Followup advised. No abnormal opacity seen elsewhere. PLEURA: Questionable right pneumothorax versus skin fold. Expiratory chest radiography is advised to exclude pneumothorax. Minimal blunting left costophrenic angle may reflect pleural effusion. Right costophrenic angle clear. CARDIOVASCULAR: Normal heart size. Congestive change. OSSEOUS STRUCTURES: No significant abnormalities. VISUALIZED UPPER ABDOMEN: Normal. OTHER FINDINGS: None. IMPRESSION: The possible early multifocal pneumonia. Possible pneumothorax along right lateral pleural surface versus skin fold. Recommend expiratory chest radiograph for further evaluation. Probable small left pleural effusion. The finding this examination recommended for this examination and recommendation for additional chest radiography was discussed with the nurse caring for this patient, Layla , at 9:54 a.m. on 02/14/2017.
--- NOTE | 2017-02-14 10:53 | CP.PCM.PN ---
Subjective - Date & Time of Evaluation Date of Evaluation: 02/13/17 Time of Evaluation: 08:45 - Subjective Subjective: PGY2 Medicine Note - Dr. Ryan's service: Patient seen and examined at bedside this AM. Patient not following commands. Patient localizes pain. Patient is nonverbal. Unable to obtain ROS. Patient has labored breathing and is using accessory muscles. Objective - Vital Signs/Intake and Output Vital Signs (last 24 hours): Temp Pulse Resp BP Pulse Ox 98.1 F 72 20 143/69 93 L 02/14/17 07:00 02/14/17 07:00 02/14/17 07:00 02/14/17 09:59 02/14/17 07:00 Intake and Output: 02/14/17 02/14/17 06:59 18:59 Intake Total 720 500 Output Total 200 250 Balance 520 250 - Medications Medications: Current Medications Albuterol/Ipratropium (Duoneb 3 Mg/0.5 Mg (3 Ml) Ud) 3 ml INH RQ6 [facility] Amlodipine Besylate (Norvasc) 10 mg PEG DAILY [facility] Last Admin: 02/13/17 11:26 Dose: 10 mg Aspirin (Aspirin Chewable) 81 mg PEG BID [facility] Doxazosin Mesylate (Cardura) 2 mg PEG DAILY [facility] Last Admin: 02/13/17 11:25 Dose: 2 mg Enalapril Maleate (Vasotec) 10 mg GT Q12H [facility] Last Admin: 02/14/17 05:19 Dose: 10 mg Enoxaparin Sodium (Lovenox) 40 mg SC DAILY [facility] Famotidine (Pepcid) 20 mg PEG DAILY [facility] Last Admin: 02/13/17 11:26 Dose: 20 mg Furosemide (Lasix) 20 mg IVP ONCE ONE Stop: 02/14/17 12:01 Hydralazine HCl (Apresoline) 50 mg PEG Q8H [facility] Last Admin: 02/14/17 07:08 Dose: 50 mg Sodium Chloride (Sodium Chloride 0.9%) 1,000 mls @ 70 mls/hr IV .[id number] [facility] Last Admin: 02/14/17 05:20 Dose: Not Given Insulin Human Regular (Novolin R) 0 unit SC ACHS [facility] PRN Reason: Protocol Last Admin: 02/14/17 07:43 Dose: Not Given Loperamide HCl (Imodium) 2 mg PEG Q6H PRN PRN Reason: Diarrhea Magnesium Hydroxide (Milk Of Magnesia) 30 ml PEG HS PRN PRN Reason: Constipation Metformin HCl (Glucophage) 500 mg PEG BID [facility] Last Admin: 02/13/17 17:22 Dose: 500 mg Metoprolol Tartrate (Lopressor) 75 mg PEG Q12H [facility] Last Admin: 02/14/17 05:18 Dose: 75 mg Rosuvastatin Calcium (Crestor) 40 mg PEG HS [facility] Last Admin: 02/13/17 21:56 Dose: 40 mg - Labs Labs: 02/14/17 08:00 02/14/17 08:00 PT 13.8 SECONDS (9.7-12.2) H 02/12/17 08:12 INR 1.2 02/12/17 08:12 - Constitutional Appears: Non-toxic, Chronically Ill - Head Exam Head Exam: NORMAL INSPECTION - Eye Exam Eye Exam: EOMI - ENT Exam ENT Exam: Mucous Membranes Moist - Respiratory Exam Respiratory Exam: Accessory Muscle Use, Rales, Rhonchi. absent: Wheezes, Stridor - Cardiovascular Exam Cardiovascular Exam: REGULAR RHYTHM, +S1, +S2. absent: Gallop, Rubs, Murmur - GI/Abdominal Exam GI & Abdominal Exam: Soft, Normal Bowel Sounds. absent: Tenderness - Extremities Exam Extremities Exam: Pedal Edema (1+ pitting b/l) - Neurological Exam Neurological Exam: Awake - Skin Skin Exam: Normal Color, Warm Assessment and Plan - Assessment and Plan (Free Text) Assessment: Hematuria Assessment & Plan: Cystoscopy showed uretheral damage Kapadia replaced urine culture negative Dr. Jimenez consulted, Cefepime started 1gram Q8H after 1 gram of Rocephin given in the ED. Status: Acute Anemia Assessment & Plan: macrocytic increased RDW s/p 2 units pRBCs see note on hematuria Status: Acute Dyspnea Assessment & Plan: CXR 02/14/17 - possible early multifocal pneumonia. Possible pneumothorax along right lateral pleural surface versus skin fold. Probably small left pleural effusion. Avelox 400mg IVPB daily started F/U legionella, mycoplasma, strep pneumo Ag and Abs F/U blood culture Lasix 20mg IVP Q3 x2 F/U repeat CXR reading to determine pneumothorax v. skin fold YAKOV negative EKG - NSR with PVCs and RBBB and anterior fascicular block Cardio consult - Dr. Lopez - f/u recommendations Status: Acute Diarrhea Assessment & Plan: F/U c diff and stool studies Status: Acute Dementia Assessment & Plan: continue home medication, put patient on fall precuation. Status: Chronic HTN (hypertension) Assessment & Plan: continue home medication Status: Chronic Diabetes mellitus Assessment & Plan: continue home medication, accu checks ACHS with sliding scale as needed. 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 Patient most likely has a history of Afib if he is on Eliquis and has a history of stroke. Status: Acute Prophylactic measure Assessment & Plan: pepcid 20mg via PEG SCDS Lovenox 40mg SC daily tube feeding Status: Acute
--- NOTE | 2017-02-14 10:55 | RAD ---
HISTORY: pneumothorax v. skin fold COMPARISON: 02/14/2017 at 9:19 a.m. FINDINGS: LUNGS: Opacity at left base persists. Right suprahilar opacity is no longer evident. Possible developing pneumonia left lower lobe. PLEURA: Small left pleural effusion. Previously described questionable pneumothorax is more clearly demonstrated to represent a skin fold. There is no evidence of pneumothorax. CARDIOVASCULAR: Mild congestive change. Normal heart size. OSSEOUS STRUCTURES: No significant abnormalities. VISUALIZED UPPER ABDOMEN: Normal. OTHER FINDINGS: None. IMPRESSION: No pneumothorax. Left basilar opacity and small left pleural effusion. Congestive change. Possible developing pneumonia. Consider pulmonary edema.
[2017-02-14] MEDS: Enoxaparin 40 mg Syringe SC SCH (11:39)
--- NOTE | 2017-02-14 11:40 | CP.PCM.CON ---
<Estee Shrestha - Last Filed: 02/14/17 12:31> History of Present Illness - History of Present Illness History of Present Illness: Cardiology ( EP) Consult note for Dr Lopez. 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 Patient is an 82 y/o with PMH of htn, vascular dementia, CVA with residue admitted with gross hematuria. Patient's admission was complicated by dyspnea. Initial chest x-ray revealed possible pneumothorax, pneumonia and vascular congestion, repeat chest x-ray with no pneumothorax, possible pneumonia and congestion. Patient had cardiac work up with normal YAKOV x1, normal pro bnp. EKG revealed RBBB and fascicular block. Patient is aphasic, non verbal, barely responsive to any stimuli, thus unable to obtain detail history and ROS. PMH: anemia, htn, dementia, DM, BPH, h/o CVA with residue. PSH: Peg tube Social: unable to obtain Review of Systems - Review of Systems Review of Systems: Unable to obtain. 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) - ENDOCRINE/METABOLIC Hx Diabetes Mellitus Type 2: Yes - HEMATOLOGICAL/ONCOLOGICAL Hx Anemia: Yes - MUSCULOSKELETAL/RHEUMATOLOGICAL Hx Falls: No - GENITOURINARY/GYNECOLOGICAL Hx Prostate Problems: Yes - PSYCHIATRIC Hx Substance Use: No - SURGICAL HISTORY Hx Orthopedic Surgery: Yes (right hip sx) Other/Comment: g-tube - ANESTHESIA Hx Anesthesia: Yes Hx Anesthesia Reactions: No Meds Allergies/Adverse Reactions: Allergies Allergy/AdvReac Type Severity Reaction Status Date / Time No Known Allergies Allergy Verified 09/04/16 15:50 - Medications Medications: Current Medications Albuterol/Ipratropium (Duoneb 3 Mg/0.5 Mg (3 Ml) Ud) 3 ml INH RQ6 [facility] Amlodipine Besylate (Norvasc) 10 mg PEG DAILY [facility] Last Admin: 02/14/17 11:39 Dose: 10 mg Aspirin (Aspirin Chewable) 81 mg PEG BID [facility] Doxazosin Mesylate (Cardura) 2 mg PEG DAILY [facility] Last Admin: 02/14/17 11:39 Dose: 2 mg Enalapril Maleate (Vasotec) 10 mg GT Q12H [facility] Last Admin: 02/14/17 05:19 Dose: 10 mg Enoxaparin Sodium (Lovenox) 40 mg SC DAILY [facility] Last Admin: 02/14/17 11:39 Dose: 40 mg Famotidine (Pepcid) 20 mg PEG DAILY [facility] Last Admin: 02/14/17 11:39 Dose: 20 mg Furosemide (Lasix) 20 mg IVP ONCE ONE Stop: 02/14/17 12:01 Last Admin: 02/14/17 11:39 Dose: 20 mg Hydralazine HCl (Apresoline) 50 mg PEG Q8H [facility] Last Admin: 02/14/17 07:08 Dose: 50 mg Moxifloxacin HCl (Avelox Iv 400mg/250ml Ns) 250 mls @ 167 mls/hr IVPB Q24H [facility] Insulin Human Regular (Novolin R) 0 unit SC ACHS [facility] PRN Reason: Protocol Last Admin: 02/14/17 11:37 Dose: Not Given Loperamide HCl (Imodium) 2 mg PEG Q6H PRN PRN Reason: Diarrhea Magnesium Hydroxide (Milk Of Magnesia) 30 ml PEG HS PRN PRN Reason: Constipation Metformin HCl (Glucophage) 500 mg PEG BID [facility] Last Admin: 02/14/17 11:39 Dose: 500 mg Metoprolol Tartrate (Lopressor) 75 mg PEG Q12H [facility] Last Admin: 02/14/17 05:18 Dose: 75 mg Rosuvastatin Calcium (Crestor) 40 mg PEG HS [facility] Last Admin: 02/13/17 21:56 Dose: 40 mg Physical Exam - Constitutional Appears: No Acute Distress, Chronically Ill - Head Exam Head Exam: NORMAL INSPECTION - Eye Exam Eye Exam: Normal appearance - ENT Exam ENT Exam: Mucous Membranes Moist - Neck Exam Neck exam: Positive for: Normal Inspection - Respiratory Exam Respiratory Exam: Rales (diffusely ). absent: Rhonchi, Wheezes, Respiratory Distress, Stridor - Cardiovascular Exam Cardiovascular Exam: REGULAR RHYTHM, +S1, +S2, Systolic Murmur - GI/Abdominal Exam GI & Abdominal Exam: Normal Bowel Sounds, Soft. absent: Tenderness Additional comments: peg tube in place. - Extremities Exam Extremities exam: Positive for: pedal edema - Neurological Exam Neurological exam: Altered Additional comments: Non responsive to commands. - Psychiatric Exam Psychiatric exam: Anxious - Skin Skin Exam: Dry, Warm Results - Vital Signs Recent Vital Signs: Last Vital Signs Temp 98.1 F 02/14/17 07:00 Pulse 72 02/14/17 07:00 Resp 20 02/14/17 07:00 BP 154/63 H 02/14/17 11:39 Pulse Ox 93 L 02/14/17 07:00 - Labs Result Diagrams: 02/14/17 08:00 02/14/17 08:00 Labs: Laboratory Results - last 24 hr 02/12/17 02/13/17 02/13/17 11:58 16:01 16:40 WBC RBC Hgb Hct MCV MCH MCHC RDW Plt Count MPV Neut % (Auto) Lymph % (Auto) Bond % (Auto) Eos % (Auto) Baso % (Auto) Neut # Lymph # Bond # Eos # Baso # Sodium Potassium Chloride Carbon Dioxide Anion Gap BUN Creatinine Est GFR ( Amer) Est GFR (Non-Af Amer) POC Glucose (mg/dL) 115 H 108 Random Glucose Calcium Total Bilirubin AST ALT Alkaline Phosphatase Total Creatine Kinase CK-MB (Mass) Troponin I, Quant Total Protein Albumin Globulin Albumin/Globulin Ratio Blood Type O POSITIVE Antibody Screen Positive Antibody Identification Anti K Antigen Identification K Antigen - NEGATIVE 02/13/17 02/14/17 02/14/17 21:11 01:54 06:28 WBC 11.2 H RBC 3.30 L Hgb 10.2 L Hct 31.4 L MCV 95.2 H D MCH 31.0 MCHC 32.6 L RDW 15.8 H Plt Count 204 MPV 8.8 Neut % (Auto) Lymph % (Auto) Bond % (Auto) Eos % (Auto) Baso % (Auto) Neut # Lymph # Bond # Eos # Baso # Sodium Potassium Chloride Carbon Dioxide Anion Gap BUN Creatinine Est GFR ( Amer) Est GFR (Non-Af Amer) POC Glucose (mg/dL) 115 H 118 H Random Glucose Calcium Total Bilirubin AST ALT Alkaline Phosphatase Total Creatine Kinase CK-MB (Mass) Troponin I, Quant Total Protein Albumin Globulin Albumin/Globulin Ratio Blood Type Antibody Screen Antibody Identification Antigen Identification 02/14/17 02/14/17 08:00 11:16 WBC 10.5 RBC 3.27 L Hgb 10.3 L Hct 30.7 L MCV 93.9 MCH 31.5 H MCHC 33.6 RDW 16.3 H Plt Count 212 MPV 8.2 Neut % (Auto) 78.1 H Lymph % (Auto) 11.6 L Bond % (Auto) 7.9 Eos % (Auto) 1.8 Baso % (Auto) 0.6 Neut # 8.2 H Lymph # 1.2 Bond # 0.8 Eos # 0.2 Baso # 0.1 Sodium 140 Potassium 3.6 Chloride 105 Carbon Dioxide 23 Anion Gap 16 BUN 18 Creatinine 0.7 L Est GFR ( Amer) > 60 Est GFR (Non-Af Amer) > 60 POC Glucose (mg/dL) 139 H Random Glucose 112 H Calcium 8.4 L Total Bilirubin 0.5 AST 28 ALT 32 Alkaline Phosphatase 97 Total Creatine Kinase 109 CK-MB (Mass) 1.18 Troponin I, Quant 0.0570 Total Protein 6.0 L Albumin 2.8 L Globulin 3.2 Albumin/Globulin Ratio 0.9 L Blood Type Antibody Screen Antibody Identification Antigen Identification - EKG Data EKG Interpreted by: Myself (RBBB, SINUS ARRYTHMIA, WITH PVCS, Bifascicular block , mildly prolonged QTC.) Assessment & Plan - Assessment and Plan (Free Text) Assessment: 82 y/o with: 1) Dyspnea likely secondary to pneumonia, less likely chf ( pro bnp normal). 2) Anemia 3) Hematuria 4) uncontrolled htn 5) DM 6) h/o CVA Plan: - EKG with no significant changes compared to prior EKG from 08/2016. - YAKOV x1 normal, pro bnp normal - Patient is being treated for pneumonia - on bronchodilators - Urology following for hematuria. - Anti platelet on hold secondary to hematuria. - Continue BP control - Continue Crestor, norvasc, cardura, vasotec, hydralazine, and Lopressor. - On ISS and metformin for DM. - Patient is on Lovenox for dvt prophylaxis, Pepcid for gi prophylaxis. Patient seen, examined, case discussed with Dr Lopez. - Date & Time Date: 02/14/17 Time: 13:05 <Migue Lpoez - Last Filed: 02/14/17 15:42> Meds - Medications Medications: Current Medications Albuterol/Ipratropium (Duoneb 3 Mg/0.5 Mg (3 Ml) Ud) 3 ml INH RQ6 [facility] Last Admin: 02/14/17 13:39 Dose: 3 ml Amlodipine Besylate (Norvasc) 10 mg PEG DAILY [facility] Last Admin: 02/14/17 11:39 Dose: 10 mg Aspirin (Aspirin Chewable) 81 mg PEG BID [facility] Doxazosin Mesylate (Cardura) 2 mg PEG DAILY [facility] Last Admin: 02/14/17 11:39 Dose: 2 mg Enalapril Maleate (Vasotec) 10 mg GT Q12H [facility] Last Admin: 02/14/17 05:19 Dose: 10 mg Enoxaparin Sodium (Lovenox) 40 mg SC DAILY [facility] Last Admin: 02/14/17 11:39 Dose: 40 mg Famotidine (Pepcid) 20 mg PEG DAILY [facility] Last Admin: 02/14/17 11:39 Dose: 20 mg Hydralazine HCl (Apresoline) 50 mg PEG Q8H [facility] Last Admin: 02/14/17 15:10 Dose: 50 mg Moxifloxacin HCl (Avelox Iv 400mg/250ml Ns) 250 mls @ 167 mls/hr IVPB Q24H [facility] Last Admin: 02/14/17 13:37 Dose: 167 mls/hr Insulin Human Regular (Novolin R) 0 unit SC [facility] PRN Reason: Protocol Last Admin: 02/14/17 11:37 Dose: Not Given Loperamide HCl (Imodium) 2 mg PEG Q6H PRN PRN Reason: Diarrhea Magnesium Hydroxide (Milk Of Magnesia) 30 ml PEG HS PRN PRN Reason: Constipation Metformin HCl (Glucophage) 500 mg PEG BID [facility] Last Admin: 02/14/17 11:39 Dose: 500 mg Metoprolol Tartrate (Lopressor) 75 mg PEG Q12H [facility] Last Admin: 02/14/17 05:18 Dose: 75 mg Rosuvastatin Calcium (Crestor) 40 mg PEG HS [facility] Last Admin: 02/13/17 21:56 Dose: 40 mg Results - Vital Signs Recent Vital Signs: Last Vital Signs Temp 98.8 F 02/14/17 15:20 Pulse 75 02/14/17 15:20 Resp 19 02/14/17 15:20 BP 152/66 H 02/14/17 15:20 Pulse Ox 95 02/14/17 15:20 - Labs Result Diagrams: 02/14/17 08:00 02/14/17 08:00 Labs: Laboratory Results - last 24 hr 02/12/17 02/13/17 02/13/17 11:58 16:01 16:40 WBC RBC Hgb Hct MCV MCH MCHC RDW Plt Count MPV Neut % (Auto) Lymph % (Auto) Bond % (Auto) Eos % (Auto) Baso % (Auto) Neut # Lymph # Bond # Eos # Baso # Sodium Potassium Chloride Carbon Dioxide Anion Gap BUN Creatinine Est GFR ( Amer) Est GFR (Non-Af Amer) POC Glucose (mg/dL) 115 H 108 Random Glucose Calcium Total Bilirubin AST ALT Alkaline Phosphatase Total Creatine Kinase CK-MB (Mass) Troponin I, Quant Total Protein Albumin Globulin Albumin/Globulin Ratio C. difficile Ag & Toxin Blood Type O POSITIVE Antibody Screen Positive Antibody Identification Anti K Antigen Identification K Antigen - NEGATIVE 02/13/17 02/13/17 02/14/17 21:11 Unknown 01:54 WBC 11.2 H RBC 3.30 L Hgb 10.2 L Hct 31.4 L MCV 95.2 H D MCH 31.0 MCHC 32.6 L RDW 15.8 H Plt Count 204 MPV 8.8 Neut % (Auto) Lymph % (Auto) Bond % (Auto) Eos % (Auto) Baso % (Auto) Neut # Lymph # Bond # Eos # Baso # Sodium Potassium Chloride Carbon Dioxide Anion Gap BUN Creatinine Est GFR ( Amer) Est GFR (Non-Af Amer) POC Glucose (mg/dL) 115 H Random Glucose Calcium Total Bilirubin AST ALT Alkaline Phosphatase Total Creatine Kinase CK-MB (Mass) Troponin I, Quant Total Protein Albumin Globulin Albumin/Globulin Ratio C. difficile Ag & Toxin Negative Blood Type Antibody Screen Antibody Identification Antigen Identification 02/14/17 02/14/17 02/14/17 06:28 08:00 11:16 WBC 10.5 RBC 3.27 L Hgb 10.3 L Hct 30.7 L MCV 93.9 MCH 31.5 H MCHC 33.6 RDW 16.3 H Plt Count 212 MPV 8.2 Neut % (Auto) 78.1 H Lymph % (Auto) 11.6 L Bond % (Auto) 7.9 Eos % (Auto) 1.8 Baso % (Auto) 0.6 Neut # 8.2 H Lymph # 1.2 Bond # 0.8 Eos # 0.2 Baso # 0.1 Sodium 140 Potassium 3.6 Chloride 105 Carbon Dioxide 23 Anion Gap 16 BUN 18 Creatinine 0.7 L Est GFR ( Amer) > 60 Est GFR (Non-Af Amer) > 60 POC Glucose (mg/dL) 118 H 139 H Random Glucose 112 H Calcium 8.4 L Total Bilirubin 0.5 AST 28 ALT 32 Alkaline Phosphatase 97 Total Creatine Kinase 109 CK-MB (Mass) 1.18 Troponin I, Quant 0.0570 Total Protein 6.0 L Albumin 2.8 L Globulin 3.2 Albumin/Globulin Ratio 0.9 L C. difficile Ag & Toxin Blood Type Antibody Screen Antibody Identification Antigen Identification Attending/Attestation - Attestation I have personally seen and examined this patient.: Yes I have fully participated in the care of the patient.: Yes I have reviewed all pertinent clinical information: Yes Notes (Text): 02/14/17 15:42 contiue supportive CHF treatment echo
[2017-02-14] MEDS: Moxifloxacin IV 400mg/250ml NS 250 ML IVPB SCH (13:37)
[2017-02-14] MEDS: Albuterol-Ipratrop 3 mg / 0.5 (3 ml) UD INH SCH ×2 (13:39→19:25)
--- NOTE | 2017-02-14 18:17 | CP.PCM.PN ---
Subjective - Date & Time of Evaluation Date of Evaluation: 02/13/17 Time of Evaluation: 08:00 - Subjective Subjective: weak but nad afebrile iv rx in progress culturees reviewed Objective - Vital Signs/Intake and Output Vital Signs (last 24 hours): Temp Pulse Resp BP Pulse Ox 98.8 F 75 19 140/70 95 02/14/17 15:20 02/14/17 15:20 02/14/17 15:20 02/14/17 18:04 02/14/17 15:20 Intake and Output: 02/14/17 02/14/17 06:59 18:59 Intake Total 720 825 Output Total 200 1050 Balance 520 -225 - Medications Medications: Current Medications Albuterol/Ipratropium (Duoneb 3 Mg/0.5 Mg (3 Ml) Ud) 3 ml INH RQ6 [facility] Last Admin: 02/14/17 13:39 Dose: 3 ml Amlodipine Besylate (Norvasc) 10 mg PEG DAILY [facility] Last Admin: 02/14/17 11:39 Dose: 10 mg Aspirin (Aspirin Chewable) 81 mg PEG BID [facility] Doxazosin Mesylate (Cardura) 2 mg PEG DAILY [facility] Last Admin: 02/14/17 11:39 Dose: 2 mg Enalapril Maleate (Vasotec) 10 mg GT Q12H [facility] Last Admin: 02/14/17 18:03 Dose: 10 mg Enoxaparin Sodium (Lovenox) 40 mg SC DAILY [facility] Last Admin: 02/14/17 11:39 Dose: 40 mg Famotidine (Pepcid) 20 mg PEG DAILY [facility] Last Admin: 02/14/17 11:39 Dose: 20 mg Hydralazine HCl (Apresoline) 50 mg PEG Q8H [facility] Last Admin: 02/14/17 15:10 Dose: 50 mg Moxifloxacin HCl (Avelox Iv 400mg/250ml Ns) 250 mls @ 167 mls/hr IVPB Q24H [facility] Last Admin: 02/14/17 13:37 Dose: 167 mls/hr Insulin Human Regular (Novolin R) 0 unit SC ACHS [facility] PRN Reason: Protocol Last Admin: 02/14/17 17:54 Dose: Not Given Loperamide HCl (Imodium) 2 mg PEG Q6H PRN PRN Reason: Diarrhea Magnesium Hydroxide (Milk Of Magnesia) 30 ml PEG HS PRN PRN Reason: Constipation Metformin HCl (Glucophage) 500 mg PEG BID [facility] Last Admin: 02/14/17 18:04 Dose: 500 mg Metoprolol Tartrate (Lopressor) 75 mg PEG Q12H [facility] Last Admin: 02/14/17 18:04 Dose: 75 mg Rosuvastatin Calcium (Crestor) 40 mg PEG HS [facility] Last Admin: 02/13/17 21:56 Dose: 40 mg - Labs Labs: 02/14/17 08:00 02/14/17 08:00 PT 13.8 SECONDS (9.7-12.2) H 02/12/17 08:12 INR 1.2 02/12/17 08:12 - Constitutional Appears: Non-toxic, Chronically Ill - Head Exam Head Exam: NORMOCEPHALIC - Eye Exam Eye Exam: absent: Scleral icterus - ENT Exam ENT Exam: Mucous Membranes Dry - Neck Exam Neck Exam: absent: Lymphadenopathy - Respiratory Exam Respiratory Exam: Decreased Breath Sounds, Clear to Ausculation Bilateral - Cardiovascular Exam Cardiovascular Exam: REGULAR RHYTHM, +S1, +S2 - GI/Abdominal Exam GI & Abdominal Exam: Distended, Soft. absent: Tenderness - Rectal Exam Rectal Exam: Deferred Assessment and Plan (1) Anemia Status: Acute (2) BPH (benign prostatic hyperplasia) Status: Acute (3) CAD (coronary artery disease) Status: Acute (4) Hematuria Status: Acute (5) History of CVA (cerebrovascular accident) without residual deficits Status: Acute (6) Diabetes mellitus Status: Chronic (7) HTN (hypertension) Status: Chronic (8) UTI (urinary tract infection) Status: Acute
[2017-02-14 23:43] VITALS: RESP 20
[2017-02-15] MEDS: Albuterol-Ipratrop 3 mg / 0.5 (3 ml) UD INH SCH ×3 (01:05→13:04)
--- NOTE | 2017-02-15 07:48 | CP.PCM.PN ---
<Estee Shrestha - Last Filed: 02/15/17 10:30> Subjective - Date & Time of Evaluation Date of Evaluation: 02/15/17 Time of Evaluation: 08:50 - Subjective Subjective: EP cardiology progress note for Dr Lopez. Patient's non verbal, aphasic, bed ridden, unresponsive to commands. Unable to obtain ROS. Objective - Vital Signs/Intake and Output Vital Signs (last 24 hours): Temp Pulse Resp BP Pulse Ox 98.5 F 73 20 168/65 H 97 02/14/17 23:39 02/14/17 23:39 02/14/17 23:39 02/15/17 06:11 02/14/17 23:39 Intake and Output: 02/15/17 02/15/17 06:59 18:59 Intake Total 170 Output Total 1250 Balance -1080 - Medications Medications: Current Medications Albuterol/Ipratropium (Duoneb 3 Mg/0.5 Mg (3 Ml) Ud) 3 ml INH RQ6 [facility] Last Admin: 02/15/17 07:17 Dose: 3 ml Amlodipine Besylate (Norvasc) 10 mg PEG DAILY [facility] Last Admin: 02/14/17 11:39 Dose: 10 mg Aspirin (Aspirin Chewable) 81 mg PEG BID [facility] Doxazosin Mesylate (Cardura) 2 mg PEG DAILY [facility] Last Admin: 02/14/17 11:39 Dose: 2 mg Enalapril Maleate (Vasotec) 10 mg GT Q12H [facility] Last Admin: 02/15/17 06:09 Dose: 10 mg Enoxaparin Sodium (Lovenox) 40 mg SC DAILY [facility] Last Admin: 02/14/17 11:39 Dose: 40 mg Famotidine (Pepcid) 20 mg PEG DAILY [facility] Last Admin: 02/14/17 11:39 Dose: 20 mg Hydralazine HCl (Apresoline) 50 mg PEG Q8H [facility] Last Admin: 02/15/17 06:09 Dose: 50 mg Moxifloxacin HCl (Avelox Iv 400mg/250ml Ns) 250 mls @ 167 mls/hr IVPB Q24H [facility] Last Admin: 02/14/17 13:37 Dose: 167 mls/hr Insulin Human Regular (Novolin R) 0 unit SC ACHS [facility] PRN Reason: Protocol Last Admin: 02/14/17 17:54 Dose: Not Given Loperamide HCl (Imodium) 2 mg PEG Q6H PRN PRN Reason: Diarrhea Magnesium Hydroxide (Milk Of Magnesia) 30 ml PEG HS PRN PRN Reason: Constipation Metformin HCl (Glucophage) 500 mg PEG BID [facility] Last Admin: 02/14/17 18:04 Dose: 500 mg Metoprolol Tartrate (Lopressor) 75 mg PEG Q12H [facility] Last Admin: 02/15/17 06:11 Dose: Not Given Rosuvastatin Calcium (Crestor) 40 mg PEG HS [facility] Last Admin: 02/13/17 21:56 Dose: 40 mg - Labs Labs: 02/14/17 08:00 02/14/17 08:00 PT 13.8 SECONDS (9.7-12.2) H 02/12/17 08:12 INR 1.2 02/12/17 08:12 - Constitutional Appears: No Acute Distress - Head Exam Head Exam: NORMAL INSPECTION, NORMOCEPHALIC - Eye Exam Eye Exam: Normal appearance - ENT Exam ENT Exam: Mucous Membranes Moist - Neck Exam Neck Exam: Normal Inspection - Respiratory Exam Respiratory Exam: Decreased Breath Sounds. absent: Rhonchi, Wheezes, Respiratory Distress, Stridor - Cardiovascular Exam Cardiovascular Exam: REGULAR RHYTHM, +S1, +S2 - GI/Abdominal Exam GI & Abdominal Exam: Distended, Soft, Normal Bowel Sounds. absent: Tenderness - Extremities Exam Extremities Exam: Pedal Edema - Neurological Exam Additional comments: Awake, but not responsive. 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 3) Anemia 4) Hematuria 5) uncontrolled htn 6) DM 7) h/o CVA Plan: Patient is currently being treated for pneumonia with avelox. Continue BP control On Crestor, Norvasc, cardura, vasotec, hydralazine, and Lopressor. On ISS and metformin for DM. Asa and eliquis on hold 2nd to gi bleeding. Patient is on Lovenox for dvt prophylaxis, Pepcid for gi prophylaxis. Patient seen, examined, case discussed with Dr Lopez. <Migue Lopez - Last Filed: 02/15/17 20:15> Objective - Vital Signs/Intake and Output Vital Signs (last 24 hours): Temp Pulse Resp BP Pulse Ox 98.3 F 94 H 20 150/75 98 02/15/17 16:00 02/15/17 16:00 02/15/17 16:00 02/15/17 17:36 02/15/17 16:00 Intake and Output: 02/15/17 02/16/17 18:59 06:59 Intake Total 750 Output Total 1250 Balance -500 - Labs Labs: 02/15/17 08:01 02/15/17 08:01 PT 13.8 SECONDS (9.7-12.2) H 02/12/17 08:12 INR 1.2 02/12/17 08:12 Attending/Attestation - Attestation I have personally seen and examined this patient.: Yes I have fully participated in the care of the patient.: Yes I have reviewed all pertinent clinical information, including history, physical exam and plan: Yes Notes (Text): 02/15/17 20:14 tx to [facility]
[2017-02-15 08:13] LABS: BASO # 0.1 K/uL (0.0-0.2); BASO % 0.5 % (0.0-2.0); EOS # 0.2 K/uL (0.0-0.7); EOS % 1.8 % (0.0-4.0); HEMATOCRIT 31.9 % (35.0-51.0); LYMPH # 1.8 K/uL (1.0-4.3); LYMPH % 16.3 % (20.0-40.0); MEAN CELL VOLUME 94.1 fL (80.0-94.0); MEAN CORPUSCULAR HEMOGLOBIN 31.5 pg (27.0-31.0); MEAN CORPUSCULAR HGB CONC 33.4 g/dL (33.0-37.0); MEAN PLATELET VOLUME 8.6 fL (7.2-11.7); MONO % 9.4 % (0.0-10.0); NRBC % 0.3 % (0.0-2.0); RED CELL DISTRIBUTION WIDTH 15.3 % (11.5-14.5); WHITE BLOOD COUNT 10.9 K/uL (4.8-10.8)
[2017-02-15] MEDS: (Novolin R) Insulin Human Regular 100 units/ml vial SC SCH ×3 (08:16→17:00)
[2017-02-15 08:23] LABS: CHLORIDE 98 mmol/L (98-107); POTASSIUM 3.2 mmol/L (3.6-5.2); SODIUM 136 mmol/L (132-148)
[2017-02-15 08:25] LABS: BILIRUBIN,TOTAL 0.6 mg/dL (0.2-1.3); GFR AFRICAN-AMERICAN > 60
[2017-02-15 08:26] LABS: ALB/GLOB RATIO 0.9 (1.0-2.1); ALKALINE PHOSPHATASE 101 U/L (38-126); ALT/SGPT 30 U/L (21-72); AST/SGOT 29 U/L (17-59); BLOOD UREA NITROGEN 16 mg/dL (9-20); CALCIUM 8.3 mg/dl (8.6-10.4); CARBON DIOXIDE 26 mmol/L (22-30); GLUCOSE,RANDOM 116 mg/dL (75-110); TOTAL PROTEIN 6.2 g/dL (6.3-8.3)
[2017-02-15] MEDS: Enoxaparin 40 mg Syringe SC SCH (11:09)
--- NOTE | 2017-02-15 11:26 | CP.PCM.PN ---
Objective - Vital Signs/Intake and Output Vital Signs (last 24 hours): Temp Pulse Resp BP Pulse Ox 99.3 F 105 H 20 161/59 H 96 02/15/17 08:15 02/15/17 08:15 02/15/17 08:15 02/15/17 08:15 02/15/17 08:15 Intake and Output: 02/15/17 02/15/17 06:59 18:59 Intake Total 170 Output Total 1250 Balance -1080 - Medications Medications: Current Medications Albuterol/Ipratropium (Duoneb 3 Mg/0.5 Mg (3 Ml) Ud) 3 ml INH RQ6 [facility] Last Admin: 02/15/17 07:17 Dose: 3 ml Amlodipine Besylate (Norvasc) 10 mg PEG DAILY [facility] Last Admin: 02/15/17 10:50 Dose: 10 mg Aspirin (Aspirin Chewable) 81 mg PEG BID [facility] Doxazosin Mesylate (Cardura) 2 mg PEG DAILY [facility] Last Admin: 02/15/17 10:55 Dose: 2 mg Enalapril Maleate (Vasotec) 10 mg GT Q12H [facility] Last Admin: 02/15/17 06:09 Dose: 10 mg Enoxaparin Sodium (Lovenox) 40 mg SC DAILY [facility] Last Admin: 02/15/17 11:09 Dose: 40 mg Famotidine (Pepcid) 20 mg PEG DAILY [facility] Last Admin: 02/15/17 10:49 Dose: 20 mg Hydralazine HCl (Apresoline) 50 mg PEG Q8H [facility] Last Admin: 02/15/17 06:09 Dose: 50 mg Moxifloxacin HCl (Avelox Iv 400mg/250ml Ns) 250 mls @ 167 mls/hr IVPB Q24H [facility] Last Admin: 02/14/17 13:37 Dose: 167 mls/hr Insulin Human Regular (Novolin R) 0 unit SC ACHS [facility] PRN Reason: Protocol Last Admin: 02/15/17 11:13 Dose: Not Given Loperamide HCl (Imodium) 2 mg PEG Q6H PRN PRN Reason: Diarrhea Magnesium Hydroxide (Milk Of Magnesia) 30 ml PEG HS PRN PRN Reason: Constipation Metformin HCl (Glucophage) 500 mg PEG BID [facility] Last Admin: 02/15/17 10:50 Dose: 500 mg Metoprolol Tartrate (Lopressor) 75 mg PEG Q12H [facility] Last Admin: 02/15/17 06:11 Dose: Not Given Rosuvastatin Calcium (Crestor) 40 mg PEG HS [facility] Last Admin: 02/13/17 21:56 Dose: 40 mg - Labs Labs: 02/15/17 08:01 02/15/17 08:01 PT 13.8 SECONDS (9.7-12.2) H 02/12/17 08:12 INR 1.2 02/12/17 08:12 Assessment and Plan (1) Hematuria Status: Acute (2) Anemia Status: Acute (3) Dementia Status: Chronic (4) HTN (hypertension) Status: Chronic (5) Diabetes mellitus Status: Chronic (6) BPH (benign prostatic hyperplasia) Status: Acute (7) History of CVA (cerebrovascular accident) without residual deficits Status: Acute (8) Prophylactic measure Status: Acute
[2017-02-15] MEDS: Moxifloxacin IV 400mg/250ml NS 250 ML IVPB SCH (13:09)
[2017-02-15 16:17] VITALS: PULSE 94; TEMP 98.3; O2SAT 98
[2017-02-15] MEDS: Potassium Chloride 20 mEq/15 ml LIQ UD PO SCH ×2 (16:44→17:30)
[2017-02-15 17:37] VITALS: BP 150/75
--- NOTE | 2017-02-15 19:53 | CARD ---
APPROVED REPORT EKG Measurement Heart [id number] ME 154P [id number] <Conclusion> Suspect arm lead reversal, interpretation assumes no reversal Sinus rhythm with premature atrial complexes Right bundle branch block Lateral infarct, age undetermined Abnormal ECG
--- NOTE | 2017-02-23 07:38 | DS ---
The patient admitted to the hospital with chief complaint of gross hematuria. The patient got IV ant ibiotic. ____ consult. Supportive care. ____. The patient showed improvement. The patient transf erred back to the [facility] with diagnosis of hematuria. Jimy Saucedo MD cc: [id number] TT: 02/22/2017 10:41:23 mague
--- NOTE | 2017-03-02 06:46 | PN ---
DATE: 02/11/2017 SUBJECTIVE: See the previously dictated consult notes and operative notes. The patient was initially seen on Sunday. Subsequently, today patient was seen for followup. He was seen Sunday with gross hematuria. Kapadia c atheter seems to be in and draining. Presence gross hematuria is noted. The patient is currently resting comfortably in no apparent distress. See the plan listed below. PAST MEDICAL AND SURGICAL HISTORY: No change. PHYSICAL EXAMINATION: ABDOMEN: Difficult to evaluate for distention secondary to body habitus. DIAGNOSES: Gross hematuria, urinary retention, voiding dysfunction. I discussed with the our plans. The patient is difficult to get a full history from. He has some other urologic history. I need to check my records, but from urology standpoint, we are going to attempt to do a cystoscopy tomorrow. Today is Sunday. PLAN: The plan will be for cystoscopy and then further plans to follow. Alec Jimenez MD cc: [phone] TT: 03/02/2017 06:45:53 Confirmation # [id number] Dictation # [id number] bravo
--- NOTE | 2017-03-02 09:07 | OP ---
PROCEDURE DATE: 02/13/2017 PREOPERATIVE DIAGNOSES: Urinary retention, voiding dysfunction and gross hematuria. POSTOPERATIVE DIAGNOSES: Urinary retention, voiding dysfunction and gross hematuria, but an improper ly placed Kapadia catheter. PROCEDURE: Cystoscopy (attempted cystoscopy), no actual cystoscopy was able to be performed; removal of Kapadia catheter and insertion of Kapadia catheter. COMPLICATIONS: None. The patient is a very pleasant elderly gentleman with multiple medical issues including now difficult y with breathing. I have been consulted (see the consult notes) for gross hematuria. I have been following the patient, discussing option. The patient has had an indwelling Kapadia over the weekend that oddly enough is draining, but I just do not believe it is in properly, and I think this is contributing to the hematuria. We discussed the possibility for cystoscopy. After bringing the patient to the operating room, lithotomy position was going to be very difficult t o achieve. Further inspection revealed the Kapadia catheter, although in place and draining, not down all the way for what I would expect for this patient. So at this point, we made a decision to just remove the old Kapadia catheter and insert a new Kapadia cat heter. We tried to get a flexible cystoscope to see if this would work out well, but this was difficult for the patient to tolerate and in terms of anesthesia. So, it is an attempted cystoscopy. I removed the old Kapadia catheter and inserted a new Kapadia catheter via the urethra without difficulty in fact, and the urine clears up. The patient tolerated the procedure well without complication. ADDENDUM: My subsequent plan is just to give the patient a couple days of urethral rest and then we will plan for Kapadia catheter removal, which can be done even as an outpatient. Will see how the sukhjinder ent does clinically. At that point, we may even perform a cystoscopy in a more detailed fashion. Alec Jimenez MD cc: [phone] TT: 03/02/2017 08:29:22 wisam
--- NOTE | 2017-03-12 10:02 | HP ---
The patient admitted to the hospital complaining of generalized weakness, fatigue, tiredness, urinary infection, fever. The patient admitted to the hospital, advised admission. The patient has dementi a, CVA. PHYSICAL EXAMINATION: GENERAL: The patient is awake, alert, oriented. VITAL SIGNS: Temperature 98, pulse 90. HEENT: Within normal limits. NECK: Supple. CHEST: Symmetrical. HEART: Regular. ABDOMEN: Soft. EXTREMITIES: No edema. ASSESSMENT AND PLAN: The patient suffers from urinary tract infection and sepsis. The patient on be drest, supportive care. Jimy Saucedo MD cc: [phone] TT: 03/11/2017 20:42:25 sn
== END 2017-02-15 18:45 | DRG 698 ==
LOC: C.ER 06:52 → C.9E 10:19 → C.5T 11:38
PROVIDERS: ADMIT Internal Medicine Pulmonary Disease; ATTEND Internal Medicine Pulmonary Disease
PROC: 0T2BX0Z Change Drainage Device in Bladder, External Approach (ICD-10-PCS; principal; 2017-02-13 07:30)
DX: T83.028A Displacement of other urinary catheter, initial encounter (principal); R31.0 Gross hematuria; N39.0 Urinary tract infection, site not specified; J18.9 Pneumonia, unspecified organism; N40.0 Benign prostatic hyperplasia without lower urinary tract symptoms; I11.0 Hypertensive heart disease with heart failure; F01.50 Vascular dementia, unspecified severity, without behavioral disturbance, psychotic disturbance, mood disturbance, and anxiety; I50.9 Heart failure, unspecified; E11.9 Type 2 diabetes mellitus without complications; D64.9 Anemia, unspecified; I25.10 Atherosclerotic heart disease of native coronary artery without angina pectoris; I69.320 Aphasia following cerebral infarction; I69.319 Unspecified symptoms and signs involving cognitive functions following cerebral infarction

== ENCOUNTER 2017-05-06 12:15 | Inpatient (IN) | payer MEDICAID, MEDICARE ==
[2017-05-06] MEDS ORDERED: Sodium Chloride 0.9% 1,000 ML IV ONE (12:42)
--- NOTE | 2017-05-06 12:49 | C.PDOC ---
History Of Present Illness 82-year-old male, with hx of CVA, HTN and DM is brought to the emergency department from assisted with report of hematuria. Patient is non-verbal and Hx is obtained via transfer papers and EMR. Time Seen by Provider: 05/06/17 12:33 Chief Complaint (Nursing): Male Genitourinary History/Exam Limitations: clinical condition, other (NH report) Onset/Duration Of Symptoms: Unknown Past Medical History Reviewed: Historical Data, Nursing Documentation, Vital Signs Vital Signs: Last Vital Signs Temp 99.5 F 05/06/17 12:21 Pulse 68 05/06/17 13:40 Resp 20 05/06/17 12:21 BP 145/71 05/06/17 13:40 Pulse Ox 99 05/06/17 15:59 - Medical History PMH: Anemia, CVA, Dementia, HTN - [facility] Procedures CHANGE DRAINAGE DEVICE IN BLADDER, EXTERNAL APPROACH (02/09/17) Family History: States: Unknown Family Hx Other Family History: Non-contributory - Social History Hx Tobacco Use: No Hx Alcohol Use: No Hx Substance Use: No Review Of Systems Review Of Systems: ROS cannot be obtained secondary to pt's inabilty to answer questions. Physical Exam - Physical Exam Appears: No Acute Distress, Chronically Ill, Other (Non-verbal. Unable to follow commands) Skin: Normal Color, Warm, Dry Oral Mucosa: Moist Chest: Symmetrical, No Tenderness Cardiovascular: Rhythm Regular, No Murmur Respiratory: No Rales, No Rhonchi, No Stridor Gastrointestinal/Abdominal: Soft, No Tenderness, Other (Feeding tube) Pain Response: No Response To Pain Disoriented To: Person, Place, Time Gait: Unable To Assess ED Course And Treatment - Laboratory Results Result Diagrams: 05/06/17 13:49 05/06/17 13:58 O2 Sat by Pulse Oximetry: 99 Medical Decision Making Medical Decision Making: Foli catheter inserted by RN, port wine urine was obtained, with few clots CBI started Case discussed with dr Ryan Plan admission Disposition - Disposition Disposition: HOSPITALIZED Disposition Time: 15:50 Condition: STABLE - Clinical Impression Clinical Impression: Hematuria - Scribe Statement The provider has reviewed the documentation as recorded by the Scribe (Kwasi Quintero) All medical record entries made by the Scribe were at my direction and personally dictated by me. I have reviewed the chart and agree that the record accurately reflects my personal performance of the history, physical exam, medical decision making, and the department course for this patient. I have also personally directed, reviewed, and agree with the discharge instructions and disposition.
[2017-05-06 14:04] LABS: BASO # 0.1 K/uL (0.0-0.2); BASO % 0.7 % (0.0-2.0); EOS # 0.1 K/uL (0.0-0.7); EOS % 1.1 % (0.0-4.0); HEMOGLOBIN 12.6 g/dL (12.0-18.0); LYMPH # 1.7 K/uL (1.0-4.3); LYMPH % 19.7 % (20.0-40.0); MEAN CELL VOLUME 93.1 fL (80.0-94.0); MEAN CORPUSCULAR HGB CONC 32.3 g/dL (33.0-37.0); MONO # 0.7 K/uL (0.0-0.8); MONO % 8.5 % (0.0-10.0); NRBC % 0.1 % (0.0-2.0); RBC 4.21 Mil/uL (4.40-5.90); RED CELL DISTRIBUTION WIDTH 16.3 % (11.5-14.5); WHITE BLOOD COUNT 8.6 K/uL (4.8-10.8)
[2017-05-06 14:11] LABS: ALBUMIN 3.3 g/dL (3.5-5.0)
[2017-05-06 14:12] LABS: URINE BILIRUBIN NEGATIVE (NEGATIVE); URINE BLOOD 3+ (NEGATIVE); URINE CLARITY Hazy (Clear); URINE COLOR Red (YELLOW); URINE GLUCOSE (UA) NORMAL (Normal); URINE LEUKOCYTE ESTERASE NEG Leu/uL (Negative); URINE NITRATE NEGATIVE (NEGATIVE); URINE PROTEIN 2+ mg/dL (NEGATIVE); URINE UROBILINOGEN NORMAL mg/dL (0.2-1.0)
[2017-05-06 14:13] LABS: GFR AFRICAN-AMERICAN > 60; GFR NON-AFRICAN AMERICAN > 60
[2017-05-06 14:14] LABS: ALB/GLOB RATIO 0.9 (1.0-2.1); ALT/SGPT 96 U/L (21-72); AST/SGOT 54 U/L (17-59); BLOOD UREA NITROGEN 31 mg/dL (9-20)
[2017-05-06 14:15] LABS: CALCIUM 8.9 mg/dl (8.6-10.4)
[2017-05-06] MEDS ORDERED: Magnesium Hydroxide Susp 30 ml UD PO PRN (18:14)
[2017-05-06] MEDS ORDERED: Albuterol-Ipratrop 3 mg / 0.5 (3 ml) UD IH PRN (18:14)
[2017-05-07] MEDS: (Novolin R) Insulin Human Regular 100 units/ml vial SC SCH ×4 (00:30→17:28)
[2017-05-07 08:00] LABS: BASO % 0.5 % (0.0-2.0); EOS # 0.1 K/uL (0.0-0.7); EOS % 1.6 % (0.0-4.0); HEMOGLOBIN 11.9 g/dL (12.0-18.0); LYMPH # 1.4 K/uL (1.0-4.3); LYMPH % 18.9 % (20.0-40.0); MEAN CELL VOLUME 93.1 fL (80.0-94.0); MEAN CORPUSCULAR HEMOGLOBIN 30.3 pg (27.0-31.0); MEAN CORPUSCULAR HGB CONC 32.5 g/dL (33.0-37.0); MEAN PLATELET VOLUME 9.3 fL (7.2-11.7); MONO # 0.8 K/uL (0.0-0.8); MONO % 10.5 % (0.0-10.0); NEUT # 5.1 K/uL (1.8-7.0); NEUT % 68.5 % (50.0-75.0); NRBC % 0.1 % (0.0-2.0); RBC 3.92 Mil/uL (4.40-5.90); RED CELL DISTRIBUTION WIDTH 16.3 % (11.5-14.5); WHITE BLOOD COUNT 7.4 K/uL (4.8-10.8)
[2017-05-07 08:43] LABS: GFR AFRICAN-AMERICAN > 60; GFR NON-AFRICAN AMERICAN > 60
[2017-05-07 08:44] LABS: BLOOD UREA NITROGEN 20 mg/dL (9-20); CALCIUM 8.5 mg/dl (8.6-10.4)
--- NOTE | 2017-05-07 11:04 | CP.PCM.CON ---
History of Present Illness - History of Present Illness History of Present Illness: 82-year-old male, with hx of CVA, HTN and DM is brought to the emergency department from skilled nursing with report of hematuria. pt is contracted confused and bedridden with 3 way goodrich bladder irrigation in place cultures reviewed IV rx in progress - Medical History PMH: Anemia, CVA, Dementia, HTN - [facility] Procedures CHANGE DRAINAGE DEVICE IN BLADDER, EXTERNAL APPROACH (02/09/17) Review of Systems - Review of Systems Systems not reviewed;Unavailable: Altered Mental Status Past Patient History - Infectious Disease Hx of Infectious Diseases: None - Past Medical History & Family History Past Medical History?: Yes - Past Social History Smoking Status: Never Smoked - CARDIAC Hx Hypertension: Yes - NEUROLOGICAL Hx Dementia: Yes - ENDOCRINE/METABOLIC Hx Diabetes Mellitus Type 2: Yes - HEMATOLOGICAL/ONCOLOGICAL Hx Anemia: Yes - MUSCULOSKELETAL/RHEUMATOLOGICAL Hx Falls: No - GASTROINTESTINAL Other/Comment: G-Tube - GENITOURINARY/GYNECOLOGICAL Hx Prostate Problems: Yes - PSYCHIATRIC Hx Substance Use: No - SURGICAL HISTORY Hx Orthopedic Surgery: Yes (right hip sx) Other/Comment: g-tube - ANESTHESIA Hx Anesthesia: Yes Hx Anesthesia Reactions: No Meds Allergies/Adverse Reactions: Allergies Allergy/AdvReac Type Severity Reaction Status Date / Time No Known Allergies Allergy Verified 05/06/17 13:11 - Medications Medications: Current Medications Acetaminophen (Tylenol 325mg Tab) 650 mg PEG Q4H PRN PRN Reason: Pain, Mild (1-3) Albuterol/Ipratropium (Duoneb 3 Mg/0.5 Mg (3 Ml) Ud) 3 ml IH Q6H PRN PRN Reason: Shortness of Breath Amlodipine Besylate (Norvasc) 10 mg PEG DAILY [facility] Last Admin: 05/07/17 10:10 Dose: 10 mg Doxazosin Mesylate (Cardura) 2 mg PEG DAILY [facility] Last Admin: 05/07/17 10:06 Dose: 2 mg Enalapril Maleate (Vasotec) 10 mg GT DAILY [facility] Last Admin: 05/07/17 10:07 Dose: 10 mg Famotidine (Pepcid) 20 mg PEG DAILY [facility] Last Admin: 05/07/17 10:06 Dose: 20 mg Hydralazine HCl (Apresoline) 50 mg PEG Q8H [facility] Last Admin: 05/07/17 10:13 Dose: 50 mg Insulin Human Regular (Novolin R) 0 unit SC Q6H [facility] PRN Reason: Protocol Last Admin: 05/07/17 06:01 Dose: Not Given Loperamide HCl (Imodium) 4 mg PEG DAILY PRN PRN Reason: Diarrhea Magnesium Hydroxide (Milk Of Magnesia) 30 ml PO HS PRN PRN Reason: Constipation Metformin HCl (Glucophage) 500 mg PEG BID [facility] Last Admin: 05/07/17 10:06 Dose: Not Given Metoprolol Tartrate (Lopressor) 75 mg PEG Q12H [facility] Last Admin: 05/07/17 06:01 Dose: 75 mg Pneumococcal Polyvalent Vaccine (Pneumovax 23 Vaccine) 0.5 ml IM .ONCE ONE Stop: 05/08/17 10:01 Prochlorperazine (Compazine Rectal Supp) 25 mg RC Q12 PRN PRN Reason: Nausea/Vomiting Rosuvastatin Calcium (Crestor) 40 mg PEG HS [facility] Last Admin: 05/06/17 21:26 Dose: 40 mg Tamsulosin HCl (Flomax) 0.4 mg PEG DAILY [facility] Last Admin: 05/07/17 10:06 Dose: 0.4 mg Physical Exam - Constitutional Appears: Confused, Cachectic, Chronically Ill - Head Exam Head Exam: ATRAUMATIC, NORMAL INSPECTION, NORMOCEPHALIC - Eye Exam Eye Exam: EOMI, PERRL. absent: Scleral icterus - ENT Exam ENT Exam: Mucous Membranes Dry, Normal External Ear Exam, Normal Oropharynx - Neck Exam Neck exam: Negative for: Lymphadenopathy, Thyromegaly - Respiratory Exam Respiratory Exam: Decreased Breath Sounds, Rhonchi - Cardiovascular Exam Cardiovascular Exam: REGULAR RHYTHM, +S1, +S2 - GI/Abdominal Exam GI & Abdominal Exam: Diminished Bowel Sounds, Distended, Soft. absent: Guarding , Rebound, Rigid, Tenderness - Rectal Exam Rectal Exam: Deferred - Exam Exam: absent: NORMAL INSPECTION - Extremities Exam Extremities exam: Positive for: pedal pulses present. Negative for: calf tenderness, pedal edema, tenderness - Back Exam Back exam: absent: CVA tenderness (L), CVA tenderness (R) - Neurological Exam Neurological exam: Altered - Psychiatric Exam Psychiatric exam: Depressed - Skin Skin Exam: Dry Results - Vital Signs Recent Vital Signs: Last Vital Signs Temp 97.5 F L 05/07/17 07:57 Pulse 63 05/07/17 07:57 Resp 20 05/07/17 07:57 BP 117/72 05/07/17 10:07 Pulse Ox 97 05/07/17 07:57 - Labs Result Diagrams: 05/07/17 07:53 05/07/17 07:53 Labs: Laboratory Results - last 24 hr 05/07/17 05/07/17 05/07/17 00:42 05:53 07:53 WBC 7.4 RBC 3.92 L Hgb 11.9 L Hct 36.5 MCV 93.1 MCH 30.3 MCHC 32.5 L RDW 16.3 H Plt Count 143 MPV 9.3 Neut % (Auto) 68.5 Lymph % (Auto) 18.9 L [place] % (Auto) 10.5 H Eos % (Auto) 1.6 Baso % (Auto) 0.5 Neut # 5.1 Lymph # 1.4 [place] # 0.8 Eos # 0.1 Baso # 0.0 Sodium Potassium Chloride Carbon Dioxide Anion Gap BUN Creatinine Est GFR ( Amer) Est GFR (Non-Af Amer) POC Glucose (mg/dL) 109 109 Random Glucose Calcium Prostate Specific Ag 05/07/17 07:53 WBC RBC Hgb Hct MCV MCH MCHC RDW Plt Count MPV Neut % (Auto) Lymph % (Auto) [place] % (Auto) Eos % (Auto) Baso % (Auto) Neut # Lymph # [place] # Eos # Baso # Sodium 140 Potassium 3.3 L Chloride 107 Carbon Dioxide 25 Anion Gap 11 BUN 20 Creatinine 0.5 L Est GFR ( Amer) > 60 Est GFR (Non-Af Amer) > 60 POC Glucose (mg/dL) Random Glucose 103 Calcium 8.5 L Prostate Specific Ag 7.84 H Assessment & Plan (1) Hematuria Status: Acute (2) Anemia Status: Acute (3) BPH (benign prostatic hyperplasia) Status: Acute (4) CAD (coronary artery disease) Status: Acute (5) History of CVA (cerebrovascular accident) without residual deficits Status: Acute (6) UTI (urinary tract infection) Status: Acute (7) Dementia Status: Chronic (8) Diabetes mellitus Status: Chronic (9) HTN (hypertension) Status: Chronic - Assessment and Plan (Free Text) Assessment: ? UTI r/o occult malignancy cont iv rx for now eval in progress
--- NOTE | 2017-05-07 12:12 | CP.PCM.PN ---
Subjective - Date & Time of Evaluation Date of Evaluation: 05/07/17 Time of Evaluation: 08:25 - Subjective Subjective: PGY2 Medicine Note - Dr. Ryan's Service 82-year-old male, with PMHx of CVA, CAD, HTN, DM, and Dementia - presents to the ED from [facility] with report of hematuria. Patient is non-verbal, contracted, confused, and bedridden. ROS is unobtainable due to AMS. In the ED, a Goodrich catheter was inserted, producing port wine urine, with few clots. Continuous Bladder Irrigation was started, and the patient was admitted. Currently, patient is resting comfortably, however he is extremely altered. Objective - Vital Signs/Intake and Output Vital Signs (last 24 hours): Temp Pulse Resp BP Pulse Ox 97.5 F L 63 20 117/72 97 05/07/17 07:57 05/07/17 07:57 05/07/17 07:57 05/07/17 10:07 05/07/17 07:57 Intake and Output: 05/07/17 05/07/17 06:59 18:59 Intake Total 79884 Output Total 34049 Balance -2100 - Medications Medications: Current Medications Acetaminophen (Tylenol 325mg Tab) 650 mg PEG Q4H PRN PRN Reason: Pain, Mild (1-3) Albuterol/Ipratropium (Duoneb 3 Mg/0.5 Mg (3 Ml) Ud) 3 ml IH Q6H PRN PRN Reason: Shortness of Breath Amlodipine Besylate (Norvasc) 10 mg PEG DAILY [facility] Last Admin: 05/07/17 10:10 Dose: 10 mg Doxazosin Mesylate (Cardura) 2 mg PEG DAILY [facility] Last Admin: 05/07/17 10:06 Dose: 2 mg Enalapril Maleate (Vasotec) 10 mg GT DAILY [facility] Last Admin: 05/07/17 10:07 Dose: 10 mg Famotidine (Pepcid) 20 mg PEG DAILY [facility] Last Admin: 05/07/17 10:06 Dose: 20 mg Hydralazine HCl (Apresoline) 50 mg PEG Q8H [facility] Last Admin: 05/07/17 10:13 Dose: 50 mg Insulin Human Regular (Novolin R) 0 unit SC Q6H [facility] PRN Reason: Protocol Last Admin: 05/07/17 11:24 Dose: Not Given Loperamide HCl (Imodium) 4 mg PEG DAILY PRN PRN Reason: Diarrhea Magnesium Hydroxide (Milk Of Magnesia) 30 ml PO HS PRN PRN Reason: Constipation Metformin HCl (Glucophage) 500 mg PEG BID [facility] Last Admin: 05/07/17 10:06 Dose: Not Given Metoprolol Tartrate (Lopressor) 75 mg PEG Q12H [facility] Last Admin: 05/07/17 06:01 Dose: 75 mg Pneumococcal Polyvalent Vaccine (Pneumovax 23 Vaccine) 0.5 ml IM .ONCE ONE Stop: 05/08/17 10:01 Prochlorperazine (Compazine Rectal Supp) 25 mg RC Q12 PRN PRN Reason: Nausea/Vomiting Rosuvastatin Calcium (Crestor) 40 mg PEG HS [facility] Last Admin: 05/06/17 21:26 Dose: 40 mg Tamsulosin HCl (Flomax) 0.4 mg PEG DAILY [facility] Last Admin: 05/07/17 10:06 Dose: 0.4 mg - Labs Labs: 05/07/17 07:53 05/07/17 07:53 - Additional Findings Additional findings: - Constitutional Appears: Confused, Cachectic, Chronically Ill - Head Exam Head Exam: ATRAUMATIC, NORMAL INSPECTION, NORMOCEPHALIC - Eye Exam Eye Exam: EOMI, PERRL. absent: Scleral icterus - ENT Exam ENT Exam: Mucous Membranes Dry, Normal External Ear Exam, Normal Oropharynx - Respiratory Exam Respiratory Exam: Decreased Breath Sounds, Rhonchi - Cardiovascular Exam Cardiovascular Exam: REGULAR RHYTHM, +S1, +S2 - GI/Abdominal Exam GI & Abdominal Exam: Diminished Bowel Sounds, Distended, Soft. absent: Guarding , Rebound, Rigid, Tenderness Note: PEG tube in place. - Exam Exam: absent: NORMAL INSPECTION - goodrich intact, CBI - Extremities Exam Extremities exam: Positive for: pedal pulses present. Negative for: calf tenderness, pedal edema, tenderness - Back Exam Back exam: absent: CVA tenderness (L), CVA tenderness (R) - Neurological Exam Neurological exam: Altered - Psychiatric Exam Psychiatric exam: Depressed - Skin Skin Exam: Dry, Intact Assessment and Plan - Assessment and Plan (Free Text) Assessment: Hematuria -Foli catheter inserted by RN, port wine urine was obtained, with few clots. -CBI started -ID consulted, Dr. Patel, f/u recs. Possible UTI -> Cefepime 1gm IVPB Q12 r/o occult malignancy - Urology consult, Dr. Jimenez, f/u recs Cardura 2 mg PEG DAILY [facility] Flomax 0.4 mg PEG DAILY [facility] UTI Possible UTI -> Cefepime 1gm IVPB Q12 -ID consulted, Dr. Patel, f/u recs. Diabetes Novolin R SC Q6H [facility] Metformin 500 mg PEG BID [facility] Crestor 40 mg PEG HS [facility] HTN -BP 158/74 Norvasc 10 mg PEG DAILY [facility] Vasotec 10 mg GT DAILY [facility] Apresoline 50 mg PEG Q8H [facility] Imodium 4 mg PEG DAILY PRN Lopressor 75 mg PEG Q12H [facility] Electrolyte Imbalance Hypokalemia, K3.3 - KCl 10meq x3 - f/u K in am Constipation Milk Of Magnesia 30 ml PO HS PRN Hx Anemia -Hgb 11.9L - stable Hx Dementia / CVA Patient with AMS, non-verbal Compazine Rectal Supp 25 mg RC Q12 PRN Prophylaxis Tylenol 325mg Tab 650 mg PEG Q4H PRN Duoneb 3 Mg/0.5 Mg (3 Ml) IH Q6H PRN Pepcid 20 mg PEG DAILY [facility] Pneumovax 23 Vaccine Hold VTE due to hematuria SCDs f/u PT/OT Tube Feeds via PEG tube NPO
--- NOTE | 2017-05-07 13:20 | CP.PCM.CON ---
History of Present Illness - History of Present Illness History of Present Illness: CC: HEMATURIA HUNTER CATHETER IN PLACE HX OF CLOTS HX OF PROSTATE DISEASE HX OF DEMENTIA PT HAS GASTROSTOMY TUBE NO PAIN REPORT NO FEVER Past Patient History - Infectious Disease Hx of Infectious Diseases: None - Past Medical History & Family History Past Medical History?: Yes - Past Social History Smoking Status: Never Smoked - CARDIAC Hx Hypertension: Yes - NEUROLOGICAL Hx Dementia: Yes - ENDOCRINE/METABOLIC Hx Diabetes Mellitus Type 2: Yes - HEMATOLOGICAL/ONCOLOGICAL Hx Anemia: Yes - MUSCULOSKELETAL/RHEUMATOLOGICAL Hx Falls: No - GASTROINTESTINAL Other/Comment: G-Tube - GENITOURINARY/GYNECOLOGICAL Hx Prostate Problems: Yes - PSYCHIATRIC Hx Substance Use: No - SURGICAL HISTORY Hx Orthopedic Surgery: Yes (right hip sx) Other/Comment: g-tube - ANESTHESIA Hx Anesthesia: Yes Hx Anesthesia Reactions: No Meds Allergies/Adverse Reactions: Allergies Allergy/AdvReac Type Severity Reaction Status Date / Time No Known Allergies Allergy Verified 05/06/17 13:11 - Medications Medications: Current Medications Acetaminophen (Tylenol 325mg Tab) 650 mg PEG Q4H PRN PRN Reason: Pain, Mild (1-3) Albuterol/Ipratropium (Duoneb 3 Mg/0.5 Mg (3 Ml) Ud) 3 ml IH Q6H PRN PRN Reason: Shortness of Breath Amlodipine Besylate (Norvasc) 10 mg PEG DAILY [facility] Last Admin: 05/07/17 10:10 Dose: 10 mg Doxazosin Mesylate (Cardura) 2 mg PEG DAILY [facility] Last Admin: 05/07/17 10:06 Dose: 2 mg Enalapril Maleate (Vasotec) 10 mg GT DAILY [facility] Last Admin: 05/07/17 10:07 Dose: 10 mg Famotidine (Pepcid) 20 mg PEG DAILY [facility] Last Admin: 05/07/17 10:06 Dose: 20 mg Hydralazine HCl (Apresoline) 50 mg PEG Q8H [facility] Last Admin: 05/07/17 10:13 Dose: 50 mg Cefepime HCl (Maxipime Iv 1 Gm Premix) 1 gm in 50 mls @ 100 mls/hr IVPB Q12H [facility] Insulin Human Regular (Novolin R) 0 unit SC Q6H [facility] PRN Reason: Protocol Last Admin: 05/07/17 11:24 Dose: Not Given Loperamide HCl (Imodium) 4 mg PEG DAILY PRN PRN Reason: Diarrhea Magnesium Hydroxide (Milk Of Magnesia) 30 ml PO HS PRN PRN Reason: Constipation Metformin HCl (Glucophage) 500 mg PEG BID [facility] Last Admin: 05/07/17 10:06 Dose: Not Given Metoprolol Tartrate (Lopressor) 75 mg PEG Q12H [facility] Last Admin: 05/07/17 06:01 Dose: 75 mg Pneumococcal Polyvalent Vaccine (Pneumovax 23 Vaccine) 0.5 ml IM .ONCE ONE Stop: 05/08/17 10:01 Prochlorperazine (Compazine Rectal Supp) 25 mg RC Q12 PRN PRN Reason: Nausea/Vomiting Rosuvastatin Calcium (Crestor) 40 mg PEG HS [facility] Last Admin: 05/06/17 21:26 Dose: 40 mg Tamsulosin HCl (Flomax) 0.4 mg PEG DAILY [facility] Last Admin: 05/07/17 10:06 Dose: 0.4 mg Physical Exam - Constitutional Appears: Non-toxic - Head Exam Head Exam: ATRAUMATIC, NORMAL INSPECTION - Neck Exam Neck exam: Positive for: Full Rom - GI/Abdominal Exam GI & Abdominal Exam: Normal Bowel Sounds, Soft. absent: Distended, Organomegaly , Pulsatile Mass - Exam Exam: NORMAL INSPECTION. absent: Scrotal Swelling, Testicular Tenderness Additional comments: HEMATURIA VIA HUNTER Results - Vital Signs Recent Vital Signs: Last Vital Signs Temp 97.5 F L 05/07/17 07:57 Pulse 63 05/07/17 07:57 Resp 20 05/07/17 07:57 BP 117/72 05/07/17 10:07 Pulse Ox 97 05/07/17 07:57 - Labs Result Diagrams: 05/14/17 08:07 05/14/17 08:07 Labs: Laboratory Results - last 24 hr 05/07/17 05/07/17 05/07/17 00:42 05:53 07:53 WBC 7.4 RBC 3.92 L Hgb 11.9 L Hct 36.5 MCV 93.1 MCH 30.3 MCHC 32.5 L RDW 16.3 H Plt Count 143 MPV 9.3 Neut % (Auto) 68.5 Lymph % (Auto) 18.9 L [place] % (Auto) 10.5 H Eos % (Auto) 1.6 Baso % (Auto) 0.5 Neut # 5.1 Lymph # 1.4 [place] # 0.8 Eos # 0.1 Baso # 0.0 Sodium Potassium Chloride Carbon Dioxide Anion Gap BUN Creatinine Est GFR ( Amer) Est GFR (Non-Af Amer) POC Glucose (mg/dL) 109 109 Random Glucose Calcium Prostate Specific Ag 05/07/17 05/07/17 07:53 11:21 WBC RBC Hgb Hct MCV MCH MCHC RDW Plt Count MPV Neut % (Auto) Lymph % (Auto) [place] % (Auto) Eos % (Auto) Baso % (Auto) Neut # Lymph # [place] # Eos # Baso # Sodium 140 Potassium 3.3 L Chloride 107 Carbon Dioxide 25 Anion Gap 11 BUN 20 Creatinine 0.5 L Est GFR ( Amer) > 60 Est GFR (Non-Af Amer) > 60 POC Glucose (mg/dL) 100 Random Glucose 103 Calcium 8.5 L Prostate Specific Ag 7.84 H Assessment & Plan - Assessment and Plan (Free Text) Assessment: IMP: HEMATURIA FEEDING GASTROSTOMY S/P CVA FULL NOTE T/F THANK YOU/ ys Plan: CATHETER IRRIGATED. FEW CLOTS REMOVED NOW CATH IS DRAINING WELL POSS FURTHER W/U T/F - Date & Time Date: 05/07/17 Time: 13:20
[2017-05-07] MEDS: Cefepime IV 1 gm in Dextrose 1 GM/50 ML BAG IVPB SCH (13:28)
[2017-05-08] MEDS: Cefepime IV 1 gm in Dextrose 1 GM/50 ML BAG IVPB SCH ×2 (00:42→12:17)
[2017-05-08] MEDS: (Novolin R) Insulin Human Regular 100 units/ml vial SC SCH ×4 (06:29→18:00)
--- NOTE | 2017-05-08 07:00 | HP ---
The patient is admitted to the hospital with chief complaint of ____, has complaint of hematuria, ble eding from the urethra. The patient in the ER advised admission. History of dementia, hypertension. PHYSICAL EXAMINATION: GENERAL: The patient is awake, alert and oriented. VITAL SIGNS: Temperature 98, pulse 90. HEENT: Within normal limits. NECK: Supple. CHEST: Symmetrical. HEART: Regular. ABDOMEN: Soft. EXTREMITIES: No edema. ____ Kapadia catheter. The patient for hematuria with urinary tract infection, rule out malignancy. _ ___ supportive care. IV antibiotic. Urology consult noted. Jimy Saucedo MD cc: [phone] TT: 05/07/2017 11:24:16 fl 05/08/2017 05:58:57
[2017-05-08 07:02] LABS: ALBUMIN 2.9 g/dL (3.5-5.0)
[2017-05-08 07:04] LABS: AST/SGOT 39 U/L (17-59); GFR AFRICAN-AMERICAN > 60; GFR NON-AFRICAN AMERICAN > 60
[2017-05-08 07:05] LABS: ALB/GLOB RATIO 0.9 (1.0-2.1); ALT/SGPT 56 U/L (21-72); BLOOD UREA NITROGEN 18 mg/dL (9-20); CALCIUM 8.4 mg/dl (8.6-10.4)
[2017-05-08 07:06] LABS: MAGNESIUM 2.1 mg/dL (1.6-2.3)
[2017-05-08 07:37] LABS: BASO % 0.7 % (0.0-2.0); EOS # 0.1 K/uL (0.0-0.7); EOS % 1.4 % (0.0-4.0); HEMOGLOBIN 11.3 g/dL (12.0-18.0); LYMPH # 1.3 K/uL (1.0-4.3); LYMPH % 19.7 % (20.0-40.0); MEAN CELL VOLUME 92.2 fL (80.0-94.0); MEAN CORPUSCULAR HEMOGLOBIN 30.1 pg (27.0-31.0); MEAN CORPUSCULAR HGB CONC 32.6 g/dL (33.0-37.0); MEAN PLATELET VOLUME 9.7 fL (7.2-11.7); MONO # 0.7 K/uL (0.0-0.8); MONO % 10.4 % (0.0-10.0); NEUT # 4.4 K/uL (1.8-7.0); NEUT % 67.8 % (50.0-75.0); NRBC % 0.3 % (0.0-2.0); RBC 3.75 Mil/uL (4.40-5.90); RED CELL DISTRIBUTION WIDTH 16.3 % (11.5-14.5); WHITE BLOOD COUNT 6.5 K/uL (4.8-10.8)
[2017-05-08] MEDS ORDERED: Pneumococcal 23-Valent Vaccine IM ONE (10:00)
--- NOTE | 2017-05-08 10:40 | PCM.URO ---
Urology Progress Note - General General: Tolerating Diet (gastrostomy tube feeding) - Subjective Abdominal Pain: No Hematuria: Yes (intermittent) Fever & Chills: No - Objective Lab Studies: Reviewed (hct=34 creat=0.6) Lab Results Last 24 Hours: Laboratory Results - last 24 hr 05/07/17 05/07/17 05/07/17 11:21 16:39 21:35 WBC RBC Hgb Hct MCV MCH MCHC RDW Plt Count MPV Neut % (Auto) Lymph % (Auto) [place] % (Auto) Eos % (Auto) Baso % (Auto) Neut # Lymph # [place] # Eos # Baso # Sodium Potassium Chloride Carbon Dioxide Anion Gap BUN Creatinine Est GFR ( Amer) Est GFR (Non-Af Amer) POC Glucose (mg/dL) 100 108 111 H Random Glucose Calcium Phosphorus Magnesium Total Bilirubin AST ALT Alkaline Phosphatase Total Protein Albumin Globulin Albumin/Globulin Ratio 05/08/17 05/08/17 05/08/17 00:47 06:15 07:13 WBC 6.5 RBC 3.75 L Hgb 11.3 L Hct 34.6 L MCV 92.2 MCH 30.1 MCHC 32.6 L RDW 16.3 H Plt Count 148 MPV 9.7 Neut % (Auto) 67.8 Lymph % (Auto) 19.7 L [place] % (Auto) 10.4 H Eos % (Auto) 1.4 Baso % (Auto) 0.7 Neut # 4.4 Lymph # 1.3 [place] # 0.7 Eos # 0.1 Baso # 0.0 Sodium 139 Potassium 3.7 Chloride 109 H Carbon Dioxide 23 Anion Gap 11 BUN 18 Creatinine 0.6 L Est GFR ( Amer) > 60 Est GFR (Non-Af Amer) > 60 POC Glucose (mg/dL) 126 H Random Glucose 118 H Calcium 8.4 L Phosphorus 2.8 Magnesium 2.1 Total Bilirubin 0.7 AST 39 ALT 56 Alkaline Phosphatase 92 Total Protein 6.3 Albumin 2.9 L Globulin 3.4 Albumin/Globulin Ratio 0.9 L Intake & Output: Intake & Output 05/07/17 05/08/17 05/08/17 18:59 06:59 18:59 Intake Total 9530 430 Output Total 74340 0 Balance -570 -1620 Intake: Oral 0 0 Tube Feeding 280 280 Other 9250 150 Output: Urine 72892 2050 3-way Urethral 2049 Other: # Bowel Movements 2 1 Vital Signs: Vital Signs - 24 hr 05/07/17 05/07/17 05/07/17 16:00 17:22 23:41 Temperature 98.0 F 98 F Pulse Rate 91 H 92 H Respiratory 20 20 Rate Blood Pressure 114/73 121/69 143/71 O2 Sat by Pulse 97 96 Oximetry 05/08/17 05/08/17 05:39 08:40 Temperature 98.3 F Pulse Rate 74 Respiratory 20 Rate Blood Pressure 122/67 170/76 H O2 Sat by Pulse 97 Oximetry - Physical Exam Abdominal Exam: Soft, Non-Tender, Non-Distended Genitalia: Without Inflammation Urinary Catheter Draining Well: Yes - Plan Additional Information: imp: hematuria, catheter in place. possible further w/ u to follow - Date & Time of Note Date: 05/08/17 Time: 10:41
--- NOTE | 2017-05-08 10:56 | CP.PCM.PN ---
Subjective - Date & Time of Evaluation Date of Evaluation: 05/08/17 Time of Evaluation: 07:15 - Subjective Subjective: PGY2 Medicine Note - Dr. Ryan's Service Patient seen and examined at bedside. No overnight events per nursing. Patient is non-verbal, contracted, confused, and bedridden. ROS is unobtainable due to AMS. CBI was stopped due to possible clots. Urology informed by nursing staff. Patient is resting comfortably, however he is extremely altered. Objective - Vital Signs/Intake and Output Vital Signs (last 24 hours): Temp Pulse Resp BP Pulse Ox 98.3 F 74 20 170/76 H 97 05/08/17 08:40 05/08/17 08:40 05/08/17 08:40 05/08/17 08:40 05/08/17 08:40 Intake and Output: 05/08/17 05/08/17 06:59 18:59 Intake Total 430 Output Total 2050 Balance -1620 - Medications Medications: Current Medications Acetaminophen (Tylenol 325mg Tab) 650 mg PEG Q4H PRN PRN Reason: Pain, Mild (1-3) Albuterol/Ipratropium (Duoneb 3 Mg/0.5 Mg (3 Ml) Ud) 3 ml IH Q6H PRN PRN Reason: Shortness of Breath Amlodipine Besylate (Norvasc) 10 mg PEG DAILY [facility] Last Admin: 05/07/17 10:10 Dose: 10 mg Doxazosin Mesylate (Cardura) 2 mg PEG DAILY [facility] Last Admin: 05/07/17 10:06 Dose: 2 mg Enalapril Maleate (Vasotec) 10 mg GT DAILY [facility] Last Admin: 05/07/17 10:07 Dose: 10 mg Famotidine (Pepcid) 20 mg PEG DAILY [facility] Last Admin: 05/07/17 10:06 Dose: 20 mg Hydralazine HCl (Apresoline) 50 mg PEG Q8H [facility] Last Admin: 05/08/17 01:39 Dose: 50 mg Cefepime HCl (Maxipime Iv 1 Gm Premix) 1 gm in 50 mls @ 100 mls/hr IVPB Q12H [facility] Last Admin: 05/08/17 00:42 Dose: 100 mls/hr Insulin Human Regular (Novolin R) 0 unit SC Q6H [facility] PRN Reason: Protocol Last Admin: 05/08/17 06:29 Dose: Not Given Loperamide HCl (Imodium) 4 mg PEG DAILY PRN PRN Reason: Diarrhea Magnesium Hydroxide (Milk Of Magnesia) 30 ml PO HS PRN PRN Reason: Constipation Metformin HCl (Glucophage) 500 mg PEG BID [facility] Last Admin: 05/07/17 17:23 Dose: 500 mg Metoprolol Tartrate (Lopressor) 75 mg PEG Q12H [facility] Last Admin: 05/08/17 05:39 Dose: 75 mg Prochlorperazine (Compazine Rectal Supp) 25 mg RC Q12 PRN PRN Reason: Nausea/Vomiting Rosuvastatin Calcium (Crestor) 40 mg PEG HS [facility] Last Admin: 05/07/17 21:29 Dose: 40 mg Tamsulosin HCl (Flomax) 0.4 mg PEG DAILY [facility] Last Admin: 05/07/17 10:06 Dose: 0.4 mg - Labs Labs: 05/08/17 07:13 05/08/17 06:15 - Additional Findings Additional findings: - Constitutional Appears: Confused, Cachectic, Chronically Ill - Head Exam Head Exam: ATRAUMATIC, NORMAL INSPECTION, NORMOCEPHALIC - Eye Exam Eye Exam: EOMI, PERRL. absent: Scleral icterus - ENT Exam ENT Exam: Mucous Membranes Dry, Normal External Ear Exam, Normal Oropharynx - Respiratory Exam Respiratory Exam: Decreased Breath Sounds, Rhonchi - Cardiovascular Exam Cardiovascular Exam: REGULAR RHYTHM, +S1, +S2 - GI/Abdominal Exam GI & Abdominal Exam: Diminished Bowel Sounds, Distended, Soft. absent: Guarding , Rebound, Rigid, Tenderness Note: PEG tube in place. - Exam Exam: absent: NORMAL INSPECTION - goodrich intact, CBI - Extremities Exam Extremities exam: Positive for: pedal pulses present. Negative for: calf tenderness, pedal edema, tenderness - Back Exam Back exam: absent: CVA tenderness (L), CVA tenderness (R) - Neurological Exam Neurological exam: Altered - Psychiatric Exam Psychiatric exam: Depressed - Skin Skin Exam: Dry, Intact Assessment and Plan - Assessment and Plan (Free Text) Assessment: Hematuria 05/08: Clots noted by RN. Goodrich sometimes difficult to flush. Urology will possibly plan for Cysto - CBI to be removed in mean time. 05/06: Foli catheter inserted by RN, port wine urine was obtained, with few clots 05/06 -CBI started - Urology consult, Dr. Jimenez, f/u recs examined patient, report to follow -ID consulted, Dr. Patel, f/u recs. Possible UTI -> Cefepime 1gm IVPB Q12 r/o occult malignancy Cardura 2 mg PEG DAILY [facility] Flomax 0.4 mg PEG DAILY [facility] UTI ID consulted, Dr. Patel, f/u recs. Urine culture - negative Continue Cefepime 1gm IVPB Q12 Diabetes Novolin R SC Q6H [facility] Metformin 500 mg PEG BID [facility] Crestor 40 mg PEG HS [facility] HTN -BP 158/74 Norvasc 10 mg PEG DAILY [facility] Vasotec 10 mg GT DAILY [facility] Apresoline 50 mg PEG Q8H [facility] Lopressor 75 mg PEG Q12H [facility] Electrolyte Imbalance Hypokalemia, K3.3 - KCl 10meq x3 - f/u K in am Constipation Milk Of Magnesia 30 ml PO HS PRN Hx Anemia -Hgb 11.9L - stable Hx Dementia / CVA Patient with AMS, non-verbal Compazine Rectal Supp 25 mg RC Q12 PRN Tube Feeds via PEG tube NPO Prophylaxis Tylenol 325mg Tab 650 mg PEG Q4H PRN Duoneb 3 Mg/0.5 Mg (3 Ml) IH Q6H PRN Pepcid 20 mg PEG DAILY [facility] Imodium 4 mg PEG DAILY PRN Pneumovax 23 Vaccine Hold VTE due to hematuria SCDs f/u PT/OT All medical management as per Dr. Ryan
--- NOTE | 2017-05-08 11:49 | CP.PCM.PN ---
Subjective - Date & Time of Evaluation Date of Evaluation: 05/08/17 Time of Evaluation: 09:00 - Subjective Subjective: 82-year-old male, with hx of CVA, HTN and DM [facility] of [facility]. pt is contracted confused and bedridden with 3 way goodrich bladder irrigation in place cultures reviewed IV rx in progress Objective - Vital Signs/Intake and Output Vital Signs (last 24 hours): Temp Pulse Resp BP Pulse Ox 98.3 F 74 20 168/88 H 97 05/08/17 08:40 05/08/17 08:40 05/08/17 08:40 05/08/17 11:44 05/08/17 08:40 Intake and Output: 05/08/17 05/08/17 06:59 18:59 Intake Total 430 Output Total 2050 Balance -1620 - Medications Medications: Current Medications Acetaminophen (Tylenol 325mg Tab) 650 mg PEG Q4H PRN PRN Reason: Pain, Mild (1-3) Albuterol/Ipratropium (Duoneb 3 Mg/0.5 Mg (3 Ml) Ud) 3 ml IH Q6H PRN PRN Reason: Shortness of Breath Amlodipine Besylate (Norvasc) 10 mg PEG DAILY [facility] Last Admin: 05/07/17 10:10 Dose: 10 mg Doxazosin Mesylate (Cardura) 2 mg PEG DAILY [facility] Last Admin: 05/08/17 11:44 Dose: 2 mg Enalapril Maleate (Vasotec) 10 mg GT DAILY [facility] Last Admin: 05/08/17 11:44 Dose: 10 mg Famotidine (Pepcid) 20 mg PEG DAILY [facility] Last Admin: 05/08/17 11:44 Dose: 20 mg Hydralazine HCl (Apresoline) 50 mg PEG Q8H [facility] Last Admin: 05/08/17 11:44 Dose: 50 mg Cefepime HCl (Maxipime Iv 1 Gm Premix) 1 gm in 50 mls @ 100 mls/hr IVPB Q12H [facility] Last Admin: 05/08/17 00:42 Dose: 100 mls/hr Insulin Human Regular (Novolin R) 0 unit SC Q6H [facility] PRN Reason: Protocol Last Admin: 05/08/17 06:29 Dose: Not Given Loperamide HCl (Imodium) 4 mg PEG DAILY PRN PRN Reason: Diarrhea Magnesium Hydroxide (Milk Of Magnesia) 30 ml PO HS PRN PRN Reason: Constipation Metformin HCl (Glucophage) 500 mg PEG BID [facility] Last Admin: 05/08/17 11:45 Dose: 500 mg Metoprolol Tartrate (Lopressor) 75 mg PEG Q12H [facility] Last Admin: 05/08/17 05:39 Dose: 75 mg Prochlorperazine (Compazine Rectal Supp) 25 mg RC Q12 PRN PRN Reason: Nausea/Vomiting Rosuvastatin Calcium (Crestor) 40 mg PEG HS [facility] Last Admin: 05/07/17 21:29 Dose: 40 mg Tamsulosin HCl (Flomax) 0.4 mg PEG DAILY [facility] Last Admin: 05/08/17 11:45 Dose: 0.4 mg - Labs Labs: 05/08/17 07:13 05/08/17 06:15 Assessment and Plan (1) Hematuria Status: Acute (2) Anemia Status: Acute (3) BPH (benign prostatic hyperplasia) Status: Acute (4) CAD (coronary artery disease) Status: Acute (5) History of CVA (cerebrovascular accident) without residual deficits Status: Acute (6) UTI (urinary tract infection) Status: Acute (7) Dementia Status: Chronic (8) Diabetes mellitus Status: Chronic (9) HTN (hypertension) Status: Chronic
[2017-05-09] MEDS: Cefepime IV 1 gm in Dextrose 1 GM/50 ML BAG IVPB SCH ×2 (00:17→13:00)
[2017-05-09] MEDS: (Novolin R) Insulin Human Regular 100 units/ml vial SC SCH ×4 (00:39→18:00)
[2017-05-09 07:33] LABS: BASO % 0.6 % (0.0-2.0); EOS # 0.1 K/uL (0.0-0.7); EOS % 1.6 % (0.0-4.0); HEMOGLOBIN 11.5 g/dL (12.0-18.0); LYMPH # 1.5 K/uL (1.0-4.3); LYMPH % 23.9 % (20.0-40.0); MEAN CELL VOLUME 92.2 fL (80.0-94.0); MEAN CORPUSCULAR HGB CONC 32.6 g/dL (33.0-37.0); MEAN PLATELET VOLUME 8.7 fL (7.2-11.7); MONO # 0.6 K/uL (0.0-0.8); MONO % 9.8 % (0.0-10.0); NEUT # 3.9 K/uL (1.8-7.0); NEUT % 64.1 % (50.0-75.0); NRBC % 0.1 % (0.0-2.0); RBC 3.82 Mil/uL (4.40-5.90); RED CELL DISTRIBUTION WIDTH 16.2 % (11.5-14.5); WHITE BLOOD COUNT 6.1 K/uL (4.8-10.8)
[2017-05-09 07:54] LABS: ALBUMIN 2.9 g/dL (3.5-5.0)
[2017-05-09 07:57] LABS: ALB/GLOB RATIO 0.8 (1.0-2.1); ALT/SGPT 50 U/L (21-72); AST/SGOT 28 U/L (17-59); BLOOD UREA NITROGEN 19 mg/dL (9-20); GFR AFRICAN-AMERICAN > 60; GFR NON-AFRICAN AMERICAN > 60
[2017-05-09 07:58] LABS: CALCIUM 8.6 mg/dl (8.6-10.4); MAGNESIUM 2.2 mg/dL (1.6-2.3)
--- NOTE | 2017-05-09 08:52 | PCM.URO ---
Urology Progress Note - General General: No Complaints - Subjective Abdominal Pain: No Flank Pain: No Voiding Well: No Hematuria: Yes - Objective Lab Results Last 24 Hours: Laboratory Results - last 24 hr 05/08/17 05/08/17 05/08/17 06:24 11:18 18:41 WBC RBC Hgb Hct MCV MCH MCHC RDW Plt Count MPV Neut % (Auto) Lymph % (Auto) Cecil % (Auto) Eos % (Auto) Baso % (Auto) Neut # Lymph # Cecil # Eos # Baso # Sodium Potassium Chloride Carbon Dioxide Anion Gap BUN Creatinine Est GFR ( Amer) Est GFR (Non-Af Amer) POC Glucose (mg/dL) 128 H 137 H 125 H Random Glucose Calcium Phosphorus Magnesium Total Bilirubin AST ALT Alkaline Phosphatase Total Protein Albumin Globulin Albumin/Globulin Ratio 05/09/17 05/09/17 05/09/17 00:32 05:55 07:28 WBC 6.1 RBC 3.82 L Hgb 11.5 L Hct 35.2 MCV 92.2 MCH 30.0 MCHC 32.6 L RDW 16.2 H Plt Count 144 MPV 8.7 Neut % (Auto) 64.1 Lymph % (Auto) 23.9 Cecil % (Auto) 9.8 Eos % (Auto) 1.6 Baso % (Auto) 0.6 Neut # 3.9 Lymph # 1.5 Cecil # 0.6 Eos # 0.1 Baso # 0.0 Sodium Potassium Chloride Carbon Dioxide Anion Gap BUN Creatinine Est GFR ( Amer) Est GFR (Non-Af Amer) POC Glucose (mg/dL) 126 H 148 H Random Glucose Calcium Phosphorus Magnesium Total Bilirubin AST ALT Alkaline Phosphatase Total Protein Albumin Globulin Albumin/Globulin Ratio 05/09/17 07:28 WBC RBC Hgb Hct MCV MCH MCHC RDW Plt Count MPV Neut % (Auto) Lymph % (Auto) Cecil % (Auto) Eos % (Auto) Baso % (Auto) Neut # Lymph # Cecil # Eos # Baso # Sodium 139 Potassium 3.4 L Chloride 107 Carbon Dioxide 25 Anion Gap 10 BUN 19 Creatinine 0.6 L Est GFR ( Amer) > 60 Est GFR (Non-Af Amer) > 60 POC Glucose (mg/dL) Random Glucose 123 H Calcium 8.6 Phosphorus 2.3 L Magnesium 2.2 Total Bilirubin 0.5 AST 28 ALT 50 Alkaline Phosphatase 108 Total Protein 6.4 Albumin 2.9 L Globulin 3.6 Albumin/Globulin Ratio 0.8 L Intake & Output: Intake & Output 05/08/17 05/09/17 05/09/17 18:59 06:59 18:59 Intake Total 1120 Output Total 3000 2600 Balance -3000 -1480 Intake: Oral 0 Tube Feeding 720 Other 400 Output: Urine 3000 26[address] 3-way Urethral 3000 2600 Other: # Bowel Movements 0 1 Vital Signs: Vital Signs - 24 hr 05/08/17 05/08/17 05/08/17 11:44 16:00 18:00 Temperature 98.5 F Pulse Rate 88 Respiratory 20 Rate Blood Pressure 168/88 H 139/68 132/69 O2 Sat by Pulse 98 Oximetry 05/08/17 05/09/17 05/09/17 23:43 06:00 06:18 Temperature 98.8 F 98.3 F Pulse Rate 87 71 Respiratory 20 20 Rate Blood Pressure 140/74 165/75 H 165/75 H O2 Sat by Pulse 98 95 Oximetry 05/09/17 08:08 Temperature 97.5 F L Pulse Rate 67 Respiratory 20 Rate Blood Pressure 141/71 O2 Sat by Pulse 99 Oximetry - Physical Exam Abdominal Exam: Soft, Non-Tender, Non-Distended Genitalia: Without Inflammation Urinary Catheter Draining Well: Yes (intermittent hematuria) - Male Phallus: Normal Scrotum: Normal - Plan Catheter Care: Yes Intake & Output: Yes Additional Information: Imp: hematuria. P/rec: Prbo cysto t/f. Discussed yesterday with resident staff - Date & Time of Note Date: 05/09/17 Time: 08:52
[2017-05-09] MEDS: Pneumococcal 23-Valent Vaccine IM ONE ×2 (10:54→17:01)
--- NOTE | 2017-05-09 13:15 | CP.PCM.PN ---
Subjective - Date & Time of Evaluation Date of Evaluation: 05/09/17 Time of Evaluation: 09:10 - Subjective Subjective: PGY2 Medicine Note- Dr. Ryan's Service: Patient seen and examined. No acute events overnight, patient resting comfortably. CBI no clots, blood-tinged. Patient to have cystoscopy tomorrow at 1pm with Dr. Jimenez. ROS unobtainable. Objective - Vital Signs/Intake and Output Vital Signs (last 24 hours): Temp Pulse Resp BP Pulse Ox 97.5 F L 67 20 141/71 99 05/09/17 08:08 05/09/17 08:08 05/09/17 08:08 05/09/17 10:53 05/09/17 08:08 Intake and Output: 05/09/17 05/09/17 06:59 18:59 Intake Total 1120 Output Total 2600 3000 Balance -1480 -3000 - Medications Medications: Current Medications Acetaminophen (Tylenol 325mg Tab) 650 mg PEG Q4H PRN PRN Reason: Pain, Mild (1-3) Albuterol/Ipratropium (Duoneb 3 Mg/0.5 Mg (3 Ml) Ud) 3 ml IH Q6H PRN PRN Reason: Shortness of Breath Amlodipine Besylate (Norvasc) 10 mg PEG DAILY [facility] Last Admin: 05/09/17 10:57 Dose: 10 mg Doxazosin Mesylate (Cardura) 2 mg PEG DAILY [facility] Last Admin: 05/09/17 10:53 Dose: 2 mg Enalapril Maleate (Vasotec) 10 mg GT DAILY [facility] Last Admin: 05/09/17 10:53 Dose: 10 mg Famotidine (Pepcid) 20 mg PEG DAILY [facility] Last Admin: 05/09/17 10:54 Dose: 20 mg Hydralazine HCl (Apresoline) 50 mg PEG Q8H [facility] Last Admin: 05/09/17 10:53 Dose: 50 mg Cefepime HCl (Maxipime Iv 1 Gm Premix) 1 gm in 50 mls @ 100 mls/hr IVPB Q12H [facility] Last Admin: 05/09/17 00:17 Dose: 100 mls/hr Insulin Human Regular (Novolin R) 0 unit SC Q6H [facility] PRN Reason: Protocol Last Admin: 05/09/17 06:19 Dose: Not Given Loperamide HCl (Imodium) 4 mg PEG DAILY PRN PRN Reason: Diarrhea Magnesium Hydroxide (Milk Of Magnesia) 30 ml PO HS PRN PRN Reason: Constipation Metformin HCl (Glucophage) 500 mg PEG BID [facility] Last Admin: 05/09/17 10:53 Dose: 500 mg Metoprolol Tartrate (Lopressor) 75 mg PEG Q12H [facility] Last Admin: 05/09/17 06:18 Dose: 75 mg Prochlorperazine (Compazine Rectal Supp) 25 mg RC Q12 PRN PRN Reason: Nausea/Vomiting Rosuvastatin Calcium (Crestor) 40 mg PEG HS [facility] Last Admin: 05/08/17 21:26 Dose: 40 mg Tamsulosin HCl (Flomax) 0.4 mg PEG DAILY [facility] Last Admin: 05/09/17 10:53 Dose: 0.4 mg - Labs Labs: 05/09/17 07:28 05/09/17 07:28 - Constitutional Appears: No Acute Distress, Chronically Ill - Head Exam Head Exam: ATRAUMATIC, NORMOCEPHALIC - Eye Exam Eye Exam: EOMI - ENT Exam ENT Exam: Mucous Membranes Dry - Respiratory Exam Respiratory Exam: Decreased Breath Sounds, NORMAL BREATHING PATTERN - Cardiovascular Exam Cardiovascular Exam: +S1, +S2 - GI/Abdominal Exam GI & Abdominal Exam: Soft, Normal Bowel Sounds Additional comments: PEG - Exam Additional comments: CBI with blood-tinged fluid - Extremities Exam Extremities Exam: absent: Pedal Edema - Neurological Exam Neurological Exam: Altered. absent: Alert, Awake - Skin Skin Exam: Warm Assessment and Plan - Assessment and Plan (Free Text) Assessment: Hematuria 05/09: plan for cystoscopy tomorrow at 1pm 05/08: Clots noted by RN. Kapadia sometimes difficult to flush. Urology will possibly plan for Cysto - CBI to be removed in mean time. 05/06: Foli catheter inserted by RN, port wine urine was obtained, with few clots 05/06 -CBI started - Urology consult, Dr. Jimenez, f/u recs examined patient, report to follow -ID consulted, Dr. Patel, f/u recs. Possible UTI -> Cefepime 1gm IVPB Q12 r/o occult malignancy Cardura 2 mg PEG DAILY [facility] Flomax 0.4 mg PEG DAILY [facility] UTI ID consulted, Dr. Patel, f/u recs. Urine culture - negative Continue Cefepime 1gm IVPB Q12 Diabetes Novolin R SC Q6H [facility] Metformin 500 mg PEG BID [facility] Crestor 40 mg PEG HS [facility] HTN -BP 158/74 Norvasc 10 mg PEG DAILY [facility] Vasotec 10 mg GT DAILY [facility] Apresoline 50 mg PEG Q8H [facility] Lopressor 75 mg PEG Q12H [facility] Electrolyte Imbalance Hypokalemia, K3.4 - KCl 10meq x2 - f/u K in am Constipation Milk Of Magnesia 30 ml PO HS PRN Hx Anemia -Hgb 11.5L - stable Hx Dementia / CVA Patient with AMS, non-verbal Compazine Rectal Supp 25 mg RC Q12 PRN Tube Feeds via PEG tube NPO Prophylaxis Tylenol 325mg Tab 650 mg PEG Q4H PRN Duoneb 3 Mg/0.5 Mg (3 Ml) IH Q6H PRN Pepcid 20 mg PEG DAILY [facility] Imodium 4 mg PEG DAILY PRN Pneumovax 23 Vaccine Hold VTE due to hematuria SCDs PT/OT- recommend LTAC, PT 3-5 times per week All medical management as per Dr. Ryan
--- NOTE | 2017-05-09 15:36 | CP.PCM.PN ---
Subjective - Date & Time of Evaluation Date of Evaluation: 05/09/17 Time of Evaluation: 08:00 - Subjective Subjective: patient resting comfortably. CBI no clots, blood-tinged. Patient to have cystoscopy tomorrow at 1pm with Dr. Jimenez. ROS unobtainable. all cultures negative Objective - Vital Signs/Intake and Output Vital Signs (last 24 hours): Temp Pulse Resp BP Pulse Ox 97.5 F L 67 20 141/71 99 05/09/17 08:08 05/09/17 08:08 05/09/17 08:08 05/09/17 10:53 05/09/17 08:08 Intake and Output: 05/09/17 05/09/17 06:59 18:59 Intake Total 1120 Output Total 2600 6000 Balance -1480 -6000 - Medications Medications: Current Medications Acetaminophen (Tylenol 325mg Tab) 650 mg PEG Q4H PRN PRN Reason: Pain, Mild (1-3) Albuterol/Ipratropium (Duoneb 3 Mg/0.5 Mg (3 Ml) Ud) 3 ml IH Q6H PRN PRN Reason: Shortness of Breath Amlodipine Besylate (Norvasc) 10 mg PEG DAILY [facility] Last Admin: 05/09/17 10:57 Dose: 10 mg Doxazosin Mesylate (Cardura) 2 mg PEG DAILY [facility] Last Admin: 05/09/17 10:53 Dose: 2 mg Enalapril Maleate (Vasotec) 10 mg GT DAILY [facility] Last Admin: 05/09/17 10:53 Dose: 10 mg Famotidine (Pepcid) 20 mg PEG DAILY [facility] Last Admin: 05/09/17 10:54 Dose: 20 mg Hydralazine HCl (Apresoline) 50 mg PEG Q8H [facility] Last Admin: 05/09/17 10:53 Dose: 50 mg Cefepime HCl (Maxipime Iv 1 Gm Premix) 1 gm in 50 mls @ 100 mls/hr IVPB Q12H [facility] Last Admin: 05/09/17 13:00 Dose: 100 mls/hr Potassium Chloride (Potassium Chloride 10 Meq/100 Ml) 10 meq in 100 mls @ 100 mls/hr IVPB Q1H [facility] Stop: 05/09/17 15:59 Last Admin: 05/09/17 14:43 Dose: 100 mls/hr Insulin Human Regular (Novolin R) 0 unit SC Q6H [facility] PRN Reason: Protocol Last Admin: 05/09/17 15:00 Dose: 1 unit Loperamide HCl (Imodium) 4 mg PEG DAILY PRN PRN Reason: Diarrhea Magnesium Hydroxide (Milk Of Magnesia) 30 ml PO HS PRN PRN Reason: Constipation Metformin HCl (Glucophage) 500 mg PEG BID [facility] Last Admin: 05/09/17 10:53 Dose: 500 mg Metoprolol Tartrate (Lopressor) 75 mg PEG Q12H [facility] Last Admin: 05/09/17 06:18 Dose: 75 mg Prochlorperazine (Compazine Rectal Supp) 25 mg RC Q12 PRN PRN Reason: Nausea/Vomiting Rosuvastatin Calcium (Crestor) 40 mg PEG HS [facility] Last Admin: 05/08/17 21:26 Dose: 40 mg Tamsulosin HCl (Flomax) 0.4 mg PEG DAILY [facility] Last Admin: 05/09/17 10:53 Dose: 0.4 mg - Labs Labs: 05/09/17 07:28 05/09/17 07:28 - Constitutional Appears: Non-toxic, Cachectic, Chronically Ill - Head Exam Head Exam: NORMOCEPHALIC - Eye Exam Eye Exam: PERRL. absent: Scleral icterus - ENT Exam ENT Exam: Mucous Membranes Dry, Normal External Ear Exam - Neck Exam Neck Exam: absent: Lymphadenopathy - Respiratory Exam Respiratory Exam: Decreased Breath Sounds, Clear to Ausculation Bilateral - Cardiovascular Exam Cardiovascular Exam: REGULAR RHYTHM - GI/Abdominal Exam GI & Abdominal Exam: Distended, Soft Assessment and Plan (1) Hematuria Status: Acute (2) Anemia Status: Acute (3) BPH (benign prostatic hyperplasia) Status: Acute (4) CAD (coronary artery disease) Status: Acute (5) History of CVA (cerebrovascular accident) without residual deficits Status: Acute (6) UTI (urinary tract infection) Status: Acute (7) Dementia Status: Chronic (8) Diabetes mellitus Status: Chronic (9) HTN (hypertension) Status: Chronic
[2017-05-10] MEDS: Cefepime IV 1 gm in Dextrose 1 GM/50 ML BAG IVPB SCH ×2 (01:02→14:00)
[2017-05-10] MEDS: (Novolin R) Insulin Human Regular 100 units/ml vial SC SCH ×4 (01:03→18:33)
[2017-05-10 08:10] LABS: BASO % 0.4 % (0.0-2.0); EOS # 0.1 K/uL (0.0-0.7); HEMOGLOBIN 10.9 g/dL (12.0-18.0); LYMPH # 1.4 K/uL (1.0-4.3); LYMPH % 20.4 % (20.0-40.0); MEAN CELL VOLUME 92.1 fL (80.0-94.0); MEAN CORPUSCULAR HEMOGLOBIN 30.4 pg (27.0-31.0); MEAN PLATELET VOLUME 9.3 fL (7.2-11.7); MONO # 0.6 K/uL (0.0-0.8); MONO % 9.1 % (0.0-10.0); NEUT # 4.7 K/uL (1.8-7.0); NEUT % 69.1 % (50.0-75.0); NRBC % 0.1 % (0.0-2.0); RBC 3.6 Mil/uL (4.40-5.90); WHITE BLOOD COUNT 6.8 K/uL (4.8-10.8)
[2017-05-10 09:34] LABS: ALBUMIN 2.7 g/dL (3.5-5.0)
[2017-05-10 09:37] LABS: AST/SGOT 30 U/L (17-59); GFR AFRICAN-AMERICAN > 60; GFR NON-AFRICAN AMERICAN > 60
[2017-05-10 09:38] LABS: ALB/GLOB RATIO 0.8 (1.0-2.1); ALT/SGPT 46 U/L (21-72); BLOOD UREA NITROGEN 18 mg/dL (9-20); CALCIUM 8.5 mg/dl (8.6-10.4)
[2017-05-10 10:36] LABS: PROTHROMBIN TIME 10.9 SECONDS (9.7-12.2)
[2017-05-10] MEDS ORDERED: Lactated Ringer's 1,000 ML IV ONE (13:50)
[2017-05-10] MEDS ORDERED: Etomidate 20 mg/10ml Inj IV ONE (14:05)
--- NOTE | 2017-05-10 14:25 | CP.PCM.PN ---
Subjective - Date & Time of Evaluation Date of Evaluation: 05/10/17 Time of Evaluation: 09:35 - Subjective Subjective: PGY2 Medicine Note- Dr. Ryan's service Patient seen and examined. Patient resting comfortably. Patient for cystoscopy today with Dr. Jimenez. Objective - Vital Signs/Intake and Output Vital Signs (last 24 hours): Temp Pulse Resp BP Pulse Ox 98.2 F 70 20 145/86 98 05/10/17 08:23 05/10/17 08:23 05/10/17 08:23 05/10/17 08:23 05/10/17 08:23 Intake and Output: 05/10/17 05/10/17 06:59 18:59 Intake Total 610 Output Total 2700 3000 Balance -2090 -3000 - Medications Medications: Current Medications Acetaminophen (Tylenol 325mg Tab) 650 mg PEG Q4H PRN PRN Reason: Pain, Mild (1-3) Albuterol/Ipratropium (Duoneb 3 Mg/0.5 Mg (3 Ml) Ud) 3 ml IH Q6H PRN PRN Reason: Shortness of Breath Amlodipine Besylate (Norvasc) 10 mg PEG DAILY [facility] Last Admin: 05/09/17 10:57 Dose: 10 mg Doxazosin Mesylate (Cardura) 2 mg PEG DAILY [facility] Last Admin: 05/09/17 10:53 Dose: 2 mg Enalapril Maleate (Vasotec) 10 mg GT DAILY [facility] Last Admin: 05/09/17 10:53 Dose: 10 mg Famotidine (Pepcid) 20 mg PEG DAILY [facility] Last Admin: 05/09/17 10:54 Dose: 20 mg Hydralazine HCl (Apresoline) 50 mg PEG Q8H [facility] Last Admin: 05/10/17 12:10 Dose: Not Given Cefepime HCl (Maxipime Iv 1 Gm Premix) 1 gm in 50 mls @ 100 mls/hr IVPB Q12H [facility] Last Admin: 05/10/17 01:02 Dose: 100 mls/hr Insulin Human Regular (Novolin R) 0 unit SC Q6H [facility] PRN Reason: Protocol Last Admin: 05/10/17 06:07 Dose: Not Given Loperamide HCl (Imodium) 4 mg PEG DAILY PRN PRN Reason: Diarrhea Magnesium Hydroxide (Milk Of Magnesia) 30 ml PO HS PRN PRN Reason: Constipation Metformin HCl (Glucophage) 500 mg PEG BID [facility] Last Admin: 05/10/17 12:10 Dose: Not Given Metoprolol Tartrate (Lopressor) 75 mg PEG Q12H [facility] Last Admin: 05/10/17 06:07 Dose: 75 mg Morphine Sulfate (Morphine) 1 mg IVP Q10M PRN PRN Reason: Pain, severe (8-10) Stop: 05/10/17 16:15 Prochlorperazine (Compazine Rectal Supp) 25 mg RC Q12 PRN PRN Reason: Nausea/Vomiting Rosuvastatin Calcium (Crestor) 40 mg PEG HS [facility] Last Admin: 05/09/17 21:52 Dose: 40 mg Tamsulosin HCl (Flomax) 0.4 mg PEG DAILY [facility] Last Admin: 05/09/17 10:53 Dose: 0.4 mg - Labs Labs: 05/10/17 07:57 05/10/17 07:57 PT 10.9 SECONDS (9.7-12.2) 05/10/17 10:20 INR 1.0 05/10/17 10:20 APTT 20 SECONDS (21-34) L 05/10/17 10:20 - Constitutional Appears: No Acute Distress, Chronically Ill - Head Exam Head Exam: ATRAUMATIC, NORMOCEPHALIC - ENT Exam ENT Exam: Mucous Membranes Moist - Respiratory Exam Respiratory Exam: Decreased Breath Sounds, NORMAL BREATHING PATTERN - Cardiovascular Exam Cardiovascular Exam: +S1, +S2 - GI/Abdominal Exam GI & Abdominal Exam: Soft, Normal Bowel Sounds Additional comments: PEG site clean/ dry/ intact - Exam Additional comments: CBI- clear fluid - Extremities Exam Extremities Exam: Normal Inspection. absent: Pedal Edema - Neurological Exam Neurological Exam: absent: Alert, Awake - Skin Skin Exam: Warm Assessment and Plan - Assessment and Plan (Free Text) Assessment: Hematuria 05/10: plan for cystoscopy today at 1pm 05/08: Clots noted by RN. Kapadia sometimes difficult to flush. Urology will possibly plan for Cysto - CBI to be removed in mean time. 05/06: Foli catheter inserted by RN, port wine urine was obtained, with few clots 05/06 -CBI started - Urology consult, Dr. Jimenez, f/u recs examined patient, report to follow -ID consulted, Dr. Patel, f/u recs. Possible UTI -> Cefepime 1gm IVPB Q12 r/o occult malignancy Cardura 2 mg PEG DAILY [facility] Flomax 0.4 mg PEG DAILY [facility] UTI ID consulted, Dr. Patel, f/u recs. Urine culture - negative Continue Cefepime 1gm IVPB Q12 Diabetes Novolin R SC Q6H [facility] Metformin 500 mg PEG BID [facility] Crestor 40 mg PEG HS [facility] HTN -BP 145/86 this AM Norvasc 10 mg PEG DAILY [facility] Vasotec 10 mg GT DAILY [facility] Apresoline 50 mg PEG Q8H [facility] Lopressor 75 mg PEG Q12H [facility] Electrolyte Imbalance Hypokalemia, K3.6, will continue to monitor and replete Constipation Milk Of Magnesia 30 ml PO HS PRN Hx Anemia -Hgb 10.9 Hx Dementia / CVA Patient with AMS, non-verbal Compazine Rectal Supp 25 mg RC Q12 PRN Tube Feeds via PEG tube NPO Prophylaxis Tylenol 325mg Tab 650 mg PEG Q4H PRN Duoneb 3 Mg/0.5 Mg (3 Ml) IH Q6H PRN Pepcid 20 mg PEG DAILY [facility] Imodium 4 mg PEG DAILY PRN Hold VTE due to procedure today tube feeds held SCDs PT/OT- recommend LTAC, PT 3-5 times per week All medical management as per Dr. Ryan
--- NOTE | 2017-05-10 15:42 | RAD ---
HISTORY: preop COMPARISON: 02/14/2017 FINDINGS: LUNGS: No active pulmonary disease. PLEURA: No significant pleural effusion identified, no pneumothorax apparent. CARDIOVASCULAR: Normal. OSSEOUS STRUCTURES: No significant abnormalities. VISUALIZED UPPER ABDOMEN: Normal. OTHER FINDINGS: None. IMPRESSION: No active disease.
[2017-05-10 16:23] VITALS: RESP 20
[2017-05-11] MEDS: Cefepime IV 1 gm in Dextrose 1 GM/50 ML BAG IVPB SCH ×2 (00:48→13:10)
[2017-05-11] MEDS: (Novolin R) Insulin Human Regular 100 units/ml vial SC SCH ×4 (01:01→17:15)
[2017-05-11 07:16] LABS: BASO % 0.5 % (0.0-2.0); EOS # 0.1 K/uL (0.0-0.7); EOS % 1.5 % (0.0-4.0); HEMOGLOBIN 11.5 g/dL (12.0-18.0); LYMPH # 1.5 K/uL (1.0-4.3); LYMPH % 19.4 % (20.0-40.0); MEAN CELL VOLUME 92.4 fL (80.0-94.0); MEAN CORPUSCULAR HEMOGLOBIN 30.8 pg (27.0-31.0); MEAN CORPUSCULAR HGB CONC 33.3 g/dL (33.0-37.0); MONO # 0.7 K/uL (0.0-0.8); MONO % 8.7 % (0.0-10.0); NEUT # 5.4 K/uL (1.8-7.0); NEUT % 69.9 % (50.0-75.0); NRBC % 0.1 % (0.0-2.0); RBC 3.73 Mil/uL (4.40-5.90); RED CELL DISTRIBUTION WIDTH 15.7 % (11.5-14.5); WHITE BLOOD COUNT 7.7 K/uL (4.8-10.8)
[2017-05-11 07:39] LABS: ALB/GLOB RATIO 0.8 (1.0-2.1); AST/SGOT 39 U/L (17-59); BLOOD UREA NITROGEN 13 mg/dL (9-20); GFR AFRICAN-AMERICAN > 60; GFR NON-AFRICAN AMERICAN > 60
[2017-05-11 07:40] LABS: ALT/SGPT 51 U/L (21-72); CALCIUM 8.9 mg/dl (8.6-10.4)
[2017-05-11] MEDS ORDERED: Potassium Chloride 20 mEq/15 ml LIQ UD GT ONE (10:00)
--- NOTE | 2017-05-11 15:20 | CP.PCM.PN ---
Subjective - Date & Time of Evaluation Date of Evaluation: 05/11/17 Time of Evaluation: 07:50 - Subjective Subjective: PGY2 Medicine Note- Dr. Ryan's service: Patient seen and examined. Patient s/p cystoscopy with Dr. Jimenez yesterday. Patient with bleeding from prostate per operative report. Patient no longer with CBI. Goodrich in place with sanguinous urine. Objective - Vital Signs/Intake and Output Vital Signs (last 24 hours): Temp Pulse Resp BP Pulse Ox 98.1 F 69 20 143/73 100 05/11/17 08:20 05/11/17 08:20 05/11/17 08:20 05/11/17 11:19 05/11/17 08:20 Intake and Output: 05/11/17 05/11/17 06:59 18:59 Intake Total 510 560 Output Total 700 500 Balance -190 60 - Medications Medications: Current Medications Acetaminophen (Tylenol 325mg Tab) 650 mg PEG Q4H PRN PRN Reason: Pain, Mild (1-3) Albuterol/Ipratropium (Duoneb 3 Mg/0.5 Mg (3 Ml) Ud) 3 ml IH Q6H PRN PRN Reason: Shortness of Breath Amlodipine Besylate (Norvasc) 10 mg PEG DAILY [facility] Last Admin: 05/11/17 11:24 Dose: 10 mg Doxazosin Mesylate (Cardura) 2 mg PEG DAILY [facility] Last Admin: 05/11/17 11:18 Dose: 2 mg Enalapril Maleate (Vasotec) 10 mg GT DAILY [facility] Last Admin: 05/11/17 11:19 Dose: 10 mg Famotidine (Pepcid) 20 mg PEG DAILY [facility] Last Admin: 05/11/17 11:19 Dose: 20 mg Hydralazine HCl (Apresoline) 50 mg PEG Q8H [facility] Last Admin: 05/11/17 11:23 Dose: 50 mg Cefepime HCl (Maxipime Iv 1 Gm Premix) 1 gm in 50 mls @ 100 mls/hr IVPB Q12H [facility] Last Admin: 05/11/17 13:10 Dose: 100 mls/hr Insulin Human Regular (Novolin R) 0 unit SC Q6H [facility] PRN Reason: Protocol Last Admin: 05/11/17 13:11 Dose: Not Given Loperamide HCl (Imodium) 4 mg PEG DAILY PRN PRN Reason: Diarrhea Magnesium Hydroxide (Milk Of Magnesia) 30 ml PO HS PRN PRN Reason: Constipation Metformin HCl (Glucophage) 500 mg PEG BID [facility] Last Admin: 05/11/17 11:20 Dose: Not Given Metoprolol Tartrate (Lopressor) 75 mg PEG Q12H [facility] Last Admin: 05/11/17 07:14 Dose: 75 mg Prochlorperazine (Compazine Rectal Supp) 25 mg RC Q12 PRN PRN Reason: Nausea/Vomiting Rosuvastatin Calcium (Crestor) 40 mg PEG HS [facility] Last Admin: 05/10/17 21:29 Dose: 40 mg Tamsulosin HCl (Flomax) 0.4 mg PEG DAILY [facility] Last Admin: 05/11/17 11:24 Dose: 0.4 mg - Labs Labs: 05/11/17 07:04 05/11/17 07:04 PT 10.9 SECONDS (9.7-12.2) 05/10/17 10:20 INR 1.0 05/10/17 10:20 APTT 20 SECONDS (21-34) L 05/10/17 10:20 - Constitutional Appears: Non-toxic, No Acute Distress, Chronically Ill - Head Exam Head Exam: ATRAUMATIC - Eye Exam Eye Exam: EOMI - ENT Exam ENT Exam: Mucous Membranes Moist - Respiratory Exam Respiratory Exam: Decreased Breath Sounds, NORMAL BREATHING PATTERN - Cardiovascular Exam Cardiovascular Exam: +S1, +S2 - GI/Abdominal Exam GI & Abdominal Exam: Soft, Normal Bowel Sounds Additional comments: PEG tube in place, tube feeds running - Exam Additional comments: goodrich catheter with sanguinous urine - Extremities Exam Extremities Exam: absent: Pedal Edema - Neurological Exam Neurological Exam: absent: Alert, Awake - Skin Skin Exam: Warm Assessment and Plan - Assessment and Plan (Free Text) Assessment: Hematuria 05/11: s/p cystoscopy- prostatic bleed. continue goodrich irrigation q4h per Dr. Jimenez 05/10: plan for cystoscopy today at 1pm 05/08: Clots noted by RN. Goodrich sometimes difficult to flush. Urology will possibly plan for Cysto - CBI to be removed in mean time. 05/06: Foli catheter inserted by RN, port wine urine was obtained, with few clots 05/06 -CBI started - Urology consult, Dr. Jimenez, f/u recs examined patient, report to follow -ID consulted, Dr. Patel, f/u recs. Possible UTI -> Cefepime 1gm IVPB Q12 r/o occult malignancy Cardura 2 mg PEG DAILY [facility] Flomax 0.4 mg PEG DAILY [facility] UTI ID consulted, Dr. Patel, f/u recs. Urine culture - negative Continue Cefepime 1gm IVPB Q12 Diabetes Novolin R SC Q6H [facility] Metformin 500 mg PEG BID [facility] Crestor 40 mg PEG HS [facility] HTN -BP 143/73 this AM Norvasc 10 mg PEG DAILY [facility] Vasotec 10 mg GT DAILY [facility] Apresoline 50 mg PEG Q8H [facility] Lopressor 75 mg PEG Q12H [facility] Electrolyte Imbalance Hypokalemia, K3.5, will continue to monitor and replete Constipation Milk Of Magnesia 30 ml PO HS PRN Hx Anemia -Hgb 11.5 Hx Dementia / CVA Patient with AMS, non-verbal Compazine Rectal Supp 25 mg RC Q12 PRN Tube Feeds via PEG tube NPO Prophylaxis Tylenol 325mg Tab 650 mg PEG Q4H PRN Duoneb 3 Mg/0.5 Mg (3 Ml) IH Q6H PRN Pepcid 20 mg PEG DAILY [facility] Imodium 4 mg PEG DAILY PRN Hold VTE due to procedure yesterday tube feeds held SCDs PT/OT- recommend LTAC, PT 3-5 times per week All medical management as per Dr. Ryan
--- NOTE | 2017-05-11 15:39 | PCM.URO ---
Urology Progress Note - General General: No Complaints (ON PEG FEEDING) - Subjective Nausea: No Vomiting: No Hematuria: Yes (LESS) Fever & Chills: No - Objective Lab Results Last 24 Hours: Laboratory Results - last 24 hr 05/10/17 05/11/17 05/11/17 16:22 00:52 05:47 WBC RBC Hgb Hct MCV MCH MCHC RDW Plt Count MPV Neut % (Auto) Lymph % (Auto) [place] % (Auto) Eos % (Auto) Baso % (Auto) Neut # Lymph # [place] # Eos # Baso # Sodium Potassium Chloride Carbon Dioxide Anion Gap BUN Creatinine Est GFR ( Amer) Est GFR (Non-Af Amer) POC Glucose (mg/dL) 89 105 107 Random Glucose Calcium Phosphorus Magnesium Total Bilirubin AST ALT Alkaline Phosphatase Total Protein Albumin Globulin Albumin/Globulin Ratio 05/11/17 05/11/17 05/11/17 07:04 07:04 11:34 WBC 7.7 RBC 3.73 L Hgb 11.5 L Hct 34.5 L MCV 92.4 MCH 30.8 MCHC 33.3 RDW 15.7 H Plt Count 163 MPV 9.0 Neut % (Auto) 69.9 Lymph % (Auto) 19.4 L [place] % (Auto) 8.7 Eos % (Auto) 1.5 Baso % (Auto) 0.5 Neut # 5.4 Lymph # 1.5 [place] # 0.7 Eos # 0.1 Baso # 0.0 Sodium 138 Potassium 3.5 L Chloride 104 Carbon Dioxide 27 Anion Gap 11 BUN 13 Creatinine 0.6 L Est GFR ( Amer) > 60 Est GFR (Non-Af Amer) > 60 POC Glucose (mg/dL) 129 H Random Glucose 128 H Calcium 8.9 Phosphorus 2.4 L Magnesium 2.0 Total Bilirubin 0.6 AST 39 ALT 51 Alkaline Phosphatase 112 Total Protein 6.7 Albumin 3.0 L Globulin 3.6 Albumin/Globulin Ratio 0.8 L Intake & Output: Intake & Output 05/10/17 05/11/17 05/11/17 18:59 06:59 18:59 Intake Total 9000 510 560 Output Total 79699 700 500 Balance -3650 -190 60 Intake: Intake, IV Amount 50 Right Forearm 50 Oral 0 Tube Feeding 360 360 Other 9000 150 150 Output: Urine 95956 700 500 3-way Urethral 3000 700 500 Other: # Bowel Movements 1 Vital Signs: Vital Signs - 24 hr 05/10/17 05/10/17 05/11/17 16:00 17:42 00:25 Temperature 98.5 F 98.6 F Pulse Rate 72 73 Respiratory 20 20 Rate Blood Pressure 166/81 H 166/81 H 165/75 H O2 Sat by Pulse 98 97 Oximetry 05/11/17 05/11/17 05/11/17 07:14 08:20 11:19 Temperature 98.1 F Pulse Rate 69 Respiratory 20 Rate Blood Pressure 165/75 H 143/73 143/73 O2 Sat by Pulse 100 Oximetry - Physical Exam Abdominal Exam: Soft, Non-Tender, Non-Distended Bowel Sounds: Normal Urine Color: [place] (CATHETER IRRIGATED. DRAINS WELL) - Male Testes: Normal: Bilateral - Plan Catheter Care: Yes Additional Information: IMP: STABLE P CYSTO. HEMATURIA - LESS - Date & Time of Note Date: 05/11/17 Time: 15:39
[2017-05-12] MEDS: (Novolin R) Insulin Human Regular 100 units/ml vial SC SCH ×4 (00:48→17:38)
[2017-05-12] MEDS: Cefepime IV 1 gm in Dextrose 1 GM/50 ML BAG IVPB SCH ×2 (00:50→13:13)
[2017-05-12 07:25] LABS: BASO # 0.1 K/uL (0.0-0.2); BASO % 1.2 % (0.0-2.0); EOS # 0.1 K/uL (0.0-0.7); EOS % 1.1 % (0.0-4.0); HEMOGLOBIN 10.6 g/dL (12.0-18.0); LYMPH # 1.6 K/uL (1.0-4.3); LYMPH % 16.9 % (20.0-40.0); MEAN CELL VOLUME 92.9 fL (80.0-94.0); MEAN CORPUSCULAR HEMOGLOBIN 30.2 pg (27.0-31.0); MEAN CORPUSCULAR HGB CONC 32.5 g/dL (33.0-37.0); MEAN PLATELET VOLUME 9.5 fL (7.2-11.7); MONO # 0.9 K/uL (0.0-0.8); MONO % 9.5 % (0.0-10.0); NEUT # 6.7 K/uL (1.8-7.0); NEUT % 71.3 % (50.0-75.0); NRBC % 0.2 % (0.0-2.0); RBC 3.51 Mil/uL (4.40-5.90); RED CELL DISTRIBUTION WIDTH 16.3 % (11.5-14.5); WHITE BLOOD COUNT 9.4 K/uL (4.8-10.8)
[2017-05-12 07:49] LABS: ALBUMIN 2.9 g/dL (3.5-5.0)
[2017-05-12 07:51] LABS: GFR AFRICAN-AMERICAN > 60; GFR NON-AFRICAN AMERICAN > 60
[2017-05-12 07:52] LABS: ALB/GLOB RATIO 0.9 (1.0-2.1); ALT/SGPT 44 U/L (21-72); AST/SGOT 29 U/L (17-59); BLOOD UREA NITROGEN 15 mg/dL (9-20); CALCIUM 8.7 mg/dl (8.6-10.4)
[2017-05-13] MEDS: (Novolin R) Insulin Human Regular 100 units/ml vial SC SCH ×4 (00:29→18:16)
--- NOTE | 2017-05-13 12:04 | PCM.URO ---
Urology Progress Note - General General: No Complaints - Subjective Abdominal Pain: No Hematuria: Yes (VIA HUNTER) Fever & Chills: No - Objective Lab Results Last 24 Hours: Laboratory Results - last 24 hr 05/12/17 05/12/17 05/13/17 16:36 21:23 00:12 POC Glucose (mg/dL) 151 H 99 142 H 05/13/17 05/13/17 07:07 11:06 POC Glucose (mg/dL) 132 H 138 H Intake & Output: Intake & Output 05/12/17 05/13/17 05/13/17 18:59 06:59 18:59 Intake Total 560 Output Total 350 Balance 210 Intake: Tube Feeding 360 Other 200 Output: Urine 350 3-way Urethral 350 Vital Signs: Vital Signs - 24 hr 05/12/17 05/12/17 05/12/17 15:15 17:37 21:00 Temperature 98.7 F Pulse Rate 107 H 98 H Respiratory 20 Rate Blood Pressure 160/77 H 160/77 H 131/75 O2 Sat by Pulse 98 Oximetry 05/13/17 05/13/17 05/13/17 00:00 05:35 08:13 Temperature 97.4 F L 98.7 F Pulse Rate 74 70 Respiratory 20 20 Rate Blood Pressure 149/67 138/75 137/62 O2 Sat by Pulse 100 95 Oximetry 05/13/17 10:15 Temperature Pulse Rate Respiratory Rate Blood Pressure 137/62 O2 Sat by Pulse Oximetry - Physical Exam Abdominal Exam: Soft, Non-Tender, Non-Distended Back: No CVA Tenderness Genitalia: Without Inflammation Urine Color: Dark [place] - Male Phallus: Normal Scrotum: Normal - Plan Additional Information: IMP: IMPROVED RE HEMATURIA - Date & Time of Note Date: 05/13/17 Time: 12:04
--- NOTE | 2017-05-13 15:46 | CP.PCM.PN ---
Subjective - Date & Time of Evaluation Date of Evaluation: 05/13/17 Time of Evaluation: 07:00 - Subjective Subjective: IV RX IN PROGRESS CONT SAME S/P CYSTO Objective - Vital Signs/Intake and Output Vital Signs (last 24 hours): Temp Pulse Resp BP Pulse Ox 98.7 F 70 20 137/62 95 05/13/17 08:13 05/13/17 08:13 05/13/17 08:13 05/13/17 10:15 05/13/17 08:13 Intake and Output: 05/13/17 05/13/17 06:59 18:59 Intake Total 560 Output Total 350 Balance 210 - Medications Medications: Current Medications Acetaminophen (Tylenol 325mg Tab) 650 mg PEG Q4H PRN PRN Reason: Pain, Mild (1-3) Albuterol/Ipratropium (Duoneb 3 Mg/0.5 Mg (3 Ml) Ud) 3 ml IH Q6H PRN PRN Reason: Shortness of Breath Amlodipine Besylate (Norvasc) 10 mg PEG DAILY [facility] Last Admin: 05/13/17 10:25 Dose: 10 mg Doxazosin Mesylate (Cardura) 2 mg PEG DAILY [facility] Last Admin: 05/13/17 10:15 Dose: 2 mg Enalapril Maleate (Vasotec) 10 mg GT DAILY [facility] Last Admin: 05/13/17 10:15 Dose: 10 mg Famotidine (Pepcid) 20 mg PEG DAILY [facility] Last Admin: 05/13/17 10:15 Dose: 20 mg Hydralazine HCl (Apresoline) 50 mg PEG Q8H [facility] Last Admin: 05/13/17 10:15 Dose: 50 mg Cefepime HCl (Maxipime Iv 1 Gm Premix) 1 gm in 50 mls @ 100 mls/hr IVPB Q12H [facility] Insulin Human Regular (Novolin R) 0 unit SC Q6H [facility] PRN Reason: Protocol Last Admin: 05/13/17 11:09 Dose: Not Given Loperamide HCl (Imodium) 4 mg PEG DAILY PRN PRN Reason: Diarrhea Magnesium Hydroxide (Milk Of Magnesia) 30 ml PO HS PRN PRN Reason: Constipation Metformin HCl (Glucophage) 500 mg PEG BID [facility] Last Admin: 05/13/17 10:15 Dose: 500 mg Metoprolol Tartrate (Lopressor) 75 mg PEG Q12H [facility] Last Admin: 05/13/17 05:35 Dose: 75 mg Prochlorperazine (Compazine Rectal Supp) 25 mg RC Q12 PRN PRN Reason: Nausea/Vomiting Rosuvastatin Calcium (Crestor) 40 mg PEG HS [facility] Last Admin: 05/12/17 22:42 Dose: 40 mg Tamsulosin HCl (Flomax) 0.4 mg PEG DAILY [facility] Last Admin: 05/13/17 10:15 Dose: 0.4 mg - Labs Labs: 05/12/17 07:15 05/12/17 07:11 PT 10.9 SECONDS (9.7-12.2) 05/10/17 10:20 INR 1.0 05/10/17 10:20 APTT 20 SECONDS (21-34) L 05/10/17 10:20 - Constitutional Appears: Non-toxic, Cachectic, Chronically Ill - Head Exam Head Exam: NORMOCEPHALIC - Eye Exam Eye Exam: PERRL. absent: Scleral icterus - ENT Exam ENT Exam: Mucous Membranes Dry, Normal External Ear Exam - Neck Exam Neck Exam: absent: Lymphadenopathy - Respiratory Exam Respiratory Exam: Decreased Breath Sounds, Clear to Ausculation Bilateral - Cardiovascular Exam Cardiovascular Exam: REGULAR RHYTHM, +S1, +S2 - GI/Abdominal Exam GI & Abdominal Exam: Distended, Soft Assessment and Plan (1) Hematuria Status: Acute (2) Anemia Status: Acute (3) BPH (benign prostatic hyperplasia) Status: Acute (4) CAD (coronary artery disease) Status: Acute (5) History of CVA (cerebrovascular accident) without residual deficits Status: Acute (6) UTI (urinary tract infection) Status: Acute (7) Dementia Status: Chronic (8) Diabetes mellitus Status: Chronic (9) HTN (hypertension) Status: Chronic - Assessment and Plan (Free Text) Assessment: OK TO D/C IV ANTIBIOTICS
[2017-05-13] MEDS: Cefepime IV 1 gm in Dextrose 1 GM/50 ML BAG IVPB SCH (16:57)
[2017-05-14] MEDS: (Novolin R) Insulin Human Regular 100 units/ml vial SC SCH ×4 (00:43→17:52)
[2017-05-14] MEDS: Cefepime IV 1 gm in Dextrose 1 GM/50 ML BAG IVPB SCH ×2 (03:34→16:08)
[2017-05-14 08:20] LABS: BASO # 0.1 K/uL (0.0-0.2); BASO % 0.7 % (0.0-2.0); EOS # 0.1 K/uL (0.0-0.7); EOS % 2.1 % (0.0-4.0); HEMOGLOBIN 10.5 g/dL (12.0-18.0); LYMPH # 1.5 K/uL (1.0-4.3); LYMPH % 21.4 % (20.0-40.0); MEAN CELL VOLUME 92.6 fL (80.0-94.0); MEAN CORPUSCULAR HEMOGLOBIN 30.2 pg (27.0-31.0); MEAN CORPUSCULAR HGB CONC 32.6 g/dL (33.0-37.0); MONO # 0.7 K/uL (0.0-0.8); MONO % 10.7 % (0.0-10.0); NEUT # 4.6 K/uL (1.8-7.0); NEUT % 65.1 % (50.0-75.0); NRBC % 0.2 % (0.0-2.0); RBC 3.46 Mil/uL (4.40-5.90); RED CELL DISTRIBUTION WIDTH 15.8 % (11.5-14.5)
[2017-05-14 08:40] LABS: ALBUMIN 2.8 g/dL (3.5-5.0)
[2017-05-14 08:43] LABS: ALB/GLOB RATIO 0.8 (1.0-2.1); ALT/SGPT 37 U/L (21-72); AST/SGOT 32 U/L (17-59); BLOOD UREA NITROGEN 18 mg/dL (9-20); CALCIUM 8.6 mg/dl (8.6-10.4); GFR AFRICAN-AMERICAN > 60; GFR NON-AFRICAN AMERICAN > 60
--- NOTE | 2017-05-14 10:05 | CP.PCM.PN ---
Subjective - Date & Time of Evaluation Date of Evaluation: 05/14/17 Time of Evaluation: 07:50 - Subjective Subjective: PGY2 Medicine Note- Dr. Ryan's service: Patient seen and examined. Patient s/p cystoscopy with Dr. Jimenez 05/10. Patient with bleeding from prostate per operative report. Patient no longer with CBI. Goodrich in place with sanguinous urine (persistent). Objective - Vital Signs/Intake and Output Vital Signs (last 24 hours): Temp Pulse Resp BP Pulse Ox 98.6 F 80 20 146/72 98 05/14/17 08:21 05/14/17 08:21 05/14/17 08:21 05/14/17 09:53 05/14/17 08:21 Intake and Output: 05/14/17 05/14/17 06:59 18:59 Intake Total 610 410 Output Total 300 400 Balance 310 10 - Medications Medications: Current Medications Acetaminophen (Tylenol 325mg Tab) 650 mg PEG Q4H PRN PRN Reason: Pain, Mild (1-3) Albuterol/Ipratropium (Duoneb 3 Mg/0.5 Mg (3 Ml) Ud) 3 ml IH Q6H PRN PRN Reason: Shortness of Breath Amlodipine Besylate (Norvasc) 10 mg PEG DAILY [facility] Last Admin: 05/13/17 10:25 Dose: 10 mg Doxazosin Mesylate (Cardura) 2 mg PEG DAILY [facility] Last Admin: 05/14/17 09:53 Dose: 2 mg Enalapril Maleate (Vasotec) 10 mg GT DAILY [facility] Last Admin: 05/14/17 09:53 Dose: 10 mg Famotidine (Pepcid) 20 mg PEG DAILY [facility] Last Admin: 05/14/17 09:53 Dose: 20 mg Hydralazine HCl (Apresoline) 50 mg PEG Q8H [facility] Last Admin: 05/14/17 01:46 Dose: 50 mg Cefepime HCl (Maxipime Iv 1 Gm Premix) 1 gm in 50 mls @ 100 mls/hr IVPB Q12H [facility] Last Admin: 05/14/17 03:34 Dose: 100 mls/hr Insulin Human Regular (Novolin R) 0 unit SC Q6H [facility] PRN Reason: Protocol Last Admin: 05/14/17 06:44 Dose: Not Given Loperamide HCl (Imodium) 4 mg PEG DAILY PRN PRN Reason: Diarrhea Magnesium Hydroxide (Milk Of Magnesia) 30 ml PO HS PRN PRN Reason: Constipation Metformin HCl (Glucophage) 500 mg PEG BID [facility] Last Admin: 05/14/17 09:53 Dose: 500 mg Metoprolol Tartrate (Lopressor) 75 mg PEG Q12H [facility] Last Admin: 05/14/17 09:52 Dose: 75 mg Prochlorperazine (Compazine Rectal Supp) 25 mg RC Q12 PRN PRN Reason: Nausea/Vomiting Rosuvastatin Calcium (Crestor) 40 mg PEG HS [facility] Last Admin: 05/13/17 22:00 Dose: 40 mg Tamsulosin HCl (Flomax) 0.4 mg PEG DAILY [facility] Last Admin: 05/14/17 09:53 Dose: 0.4 mg - Labs Labs: 05/14/17 08:07 05/14/17 08:07 PT 10.9 SECONDS (9.7-12.2) 05/10/17 10:20 INR 1.0 05/10/17 10:20 APTT 20 SECONDS (21-34) L 05/10/17 10:20 - Additional Findings Additional findings: - Constitutional Appears: Non-toxic, No Acute Distress, Chronically Ill - Head Exam Head Exam: ATRAUMATIC - Eye Exam Eye Exam: EOMI - ENT Exam ENT Exam: Mucous Membranes Moist - Respiratory Exam Respiratory Exam: Decreased Breath Sounds, NORMAL BREATHING PATTERN - Cardiovascular Exam Cardiovascular Exam: +S1, +S2 - GI/Abdominal Exam GI & Abdominal Exam: Soft, Normal Bowel Sounds Additional comments: PEG tube in place, tube feeds running - Exam Additional comments: goodrich catheter with sanguinous urine (improving) - Extremities Exam Extremities Exam: absent: Pedal Edema - Neurological Exam Neurological Exam: absent: Alert, Awake - Skin Skin Exam: Warm Assessment and Plan - Assessment and Plan (Free Text) Assessment: Hematuria 05/11-05/14: s/p cystoscopy- prostatic bleed. continue goodrich irrigation q4h per Dr. Jimenez. Will f/u. 05/10: plan for cystoscopy today at 1pm 05/08: Clots noted by RN. Goodrich sometimes difficult to flush. Urology will possibly plan for Cysto - CBI to be removed in mean time. 6/18: Foli catheter inserted by RN, port wine urine was obtained, with few clots 05/06 -CBI started - Urology consult, Dr. Jimenez, f/u recs examined patient, report to follow -ID consulted, Dr. Patel, f/u recs. Possible UTI -> Cefepime 1gm IVPB Q12 r/o occult malignancy Cardura 2 mg PEG DAILY [facility] Flomax 0.4 mg PEG DAILY [facility] UTI 05/14: Per ID note, ok to DC IV abx, will f/u. ID consulted, Dr. Patel, f/u recs Continue Cefepime 1gm IVPB Q12 Diabetes Novolin R SC Q6H [facility] Metformin 500 mg PEG BID [facility] Crestor 40 mg PEG HS [facility] HTN -BP 143/73 this AM Norvasc 10 mg PEG DAILY [facility] Vasotec 10 mg GT DAILY [facility] Apresoline 50 mg PEG Q8H [facility] Lopressor 75 mg PEG Q12H [facility] Electrolyte Imbalance Hypokalemia, K3.5, will continue to monitor and replete Constipation Milk Of Magnesia 30 ml PO HS PRN Hx Anemia -Hgb 11.5 -> 10.5 Hx Dementia / CVA Patient with AMS, non-verbal Compazine Rectal Supp 25 mg RC Q12 PRN Tube Feeds via PEG tube NPO Prophylaxis Tylenol 325mg Tab 650 mg PEG Q4H PRN Duoneb 3 Mg/0.5 Mg (3 Ml) IH Q6H PRN Pepcid 20 mg PEG DAILY [facility] Imodium 4 mg PEG DAILY PRN Hold VTE due to procedure yesterday tube feeds held SCDs PT/OT- recommend LTAC, PT 3-5 times per week All medical management as per Dr. Ryan
--- NOTE | 2017-05-14 14:40 | PCM.URO ---
Urology Progress Note - Objective Lab Results Last 24 Hours: Laboratory Results - last 24 hr 05/13/17 05/13/17 05/14/17 17:33 21:31 00:17 WBC RBC Hgb Hct MCV MCH MCHC RDW Plt Count MPV Neut % (Auto) Lymph % (Auto) [place] % (Auto) Eos % (Auto) Baso % (Auto) Neut # Lymph # [place] # Eos # Baso # Sodium Potassium Chloride Carbon Dioxide Anion Gap BUN Creatinine Est GFR ( Amer) Est GFR (Non-Af Amer) POC Glucose (mg/dL) 130 H 106 93 Random Glucose Calcium Total Bilirubin AST ALT Alkaline Phosphatase Total Protein Albumin Globulin Albumin/Globulin Ratio 05/14/17 05/14/17 05/14/17 06:19 07:22 08:07 WBC 7.0 RBC 3.46 L Hgb 10.5 L Hct 32.1 L MCV 92.6 MCH 30.2 MCHC 32.6 L RDW 15.8 H Plt Count 163 MPV 9.0 Neut % (Auto) 65.1 Lymph % (Auto) 21.4 [place] % (Auto) 10.7 H Eos % (Auto) 2.1 Baso % (Auto) 0.7 Neut # 4.6 Lymph # 1.5 [place] # 0.7 Eos # 0.1 Baso # 0.1 Sodium Potassium Chloride Carbon Dioxide Anion Gap BUN Creatinine Est GFR ( Amer) Est GFR (Non-Af Amer) POC Glucose (mg/dL) 128 H 98 Random Glucose Calcium Total Bilirubin AST ALT Alkaline Phosphatase Total Protein Albumin Globulin Albumin/Globulin Ratio 05/14/17 08:07 WBC RBC Hgb Hct MCV MCH MCHC RDW Plt Count MPV Neut % (Auto) Lymph % (Auto) [place] % (Auto) Eos % (Auto) Baso % (Auto) Neut # Lymph # [place] # Eos # Baso # Sodium 135 Potassium 4.3 Chloride 101 Carbon Dioxide 28 Anion Gap 9 L BUN 18 Creatinine 0.6 L Est GFR ( Amer) > 60 Est GFR (Non-Af Amer) > 60 POC Glucose (mg/dL) Random Glucose 107 Calcium 8.6 Total Bilirubin 0.6 AST 32 ALT 37 Alkaline Phosphatase 98 Total Protein 6.3 Albumin 2.8 L Globulin 3.5 Albumin/Globulin Ratio 0.8 L Intake & Output: Intake & Output 05/13/17 05/14/1717 18:59 06:59 18:59 Intake Total 610 410 Output Total 300 400 Balance 310 10 Intake: Intake, IV Amount 50 50 Right Forearm 50 50 Oral 0 Tube Feeding 360 360 Other 200 Output: Urine 300 400 3-way Urethral 300 400 Vital Signs: Vital Signs - 24 hr 05/13/17 05/13/17 05/14/17 15:00 18:10 00:00 Temperature 98.3 F 98.8 F Pulse Rate 83 75 Respiratory 20 20 Rate Blood Pressure 141/67 141/67 133/66 O2 Sat by Pulse 100 99 Oximetry 05/14/17 05/14/17 05/14/17 08:21 09:52 09:53 Temperature 98.6 F Pulse Rate 80 Respiratory 20 Rate Blood Pressure 140/76 146/72 146/72 O2 Sat by Pulse 98 Oximetry
[2017-05-14 16:44] VITALS: TEMP 98.9; O2SAT 100
--- NOTE | 2017-05-14 16:55 | CP.PCM.PN ---
Subjective - Date & Time of Evaluation Date of Evaluation: 05/14/17 Time of Evaluation: 11:00 - Subjective Subjective: Patient is awake, confused, unable to swallow food. Has feeding via peg, no acute distress Objective - Vital Signs/Intake and Output Vital Signs (last 24 hours): Temp Pulse Resp BP Pulse Ox 98.9 F 79 20 119/55 L 100 05/14/17 16:43 05/14/17 16:43 05/14/17 16:43 05/14/17 16:43 05/14/17 16:43 Intake and Output: 05/14/17 05/14/17 06:59 18:59 Intake Total 610 410 Output Total 300 400 Balance 310 10 - Medications Medications: Current Medications Acetaminophen (Tylenol 325mg Tab) 650 mg PEG Q4H PRN PRN Reason: Pain, Mild (1-3) Albuterol/Ipratropium (Duoneb 3 Mg/0.5 Mg (3 Ml) Ud) 3 ml IH Q6H PRN PRN Reason: Shortness of Breath Amlodipine Besylate (Norvasc) 10 mg PEG DAILY [facility] Last Admin: 05/14/17 10:10 Dose: 10 mg Doxazosin Mesylate (Cardura) 2 mg PEG DAILY [facility] Last Admin: 05/14/17 09:53 Dose: 2 mg Enalapril Maleate (Vasotec) 10 mg GT DAILY [facility] Last Admin: 05/14/17 09:53 Dose: 10 mg Famotidine (Pepcid) 20 mg PEG DAILY [facility] Last Admin: 05/14/17 09:53 Dose: 20 mg Hydralazine HCl (Apresoline) 50 mg PEG Q8H [facility] Last Admin: 05/14/17 10:10 Dose: 50 mg Cefepime HCl (Maxipime Iv 1 Gm Premix) 1 gm in 50 mls @ 100 mls/hr IVPB Q12H [facility] Last Admin: 05/14/17 16:08 Dose: 100 mls/hr Insulin Human Regular (Novolin R) 0 unit SC Q6H [facility] PRN Reason: Protocol Last Admin: 05/14/17 14:08 Dose: Not Given Loperamide HCl (Imodium) 4 mg PEG DAILY PRN PRN Reason: Diarrhea Magnesium Hydroxide (Milk Of Magnesia) 30 ml PO HS PRN PRN Reason: Constipation Metformin HCl (Glucophage) 500 mg PEG BID [facility] Last Admin: 05/14/17 09:53 Dose: 500 mg Metoprolol Tartrate (Lopressor) 75 mg PEG Q12H [facility] Last Admin: 05/14/17 09:52 Dose: 75 mg Prochlorperazine (Compazine Rectal Supp) 25 mg RC Q12 PRN PRN Reason: Nausea/Vomiting Rosuvastatin Calcium (Crestor) 40 mg PEG HS [facility] Last Admin: 05/13/17 22:00 Dose: 40 mg Tamsulosin HCl (Flomax) 0.4 mg PEG DAILY [facility] Last Admin: 05/14/17 09:53 Dose: 0.4 mg - Labs Labs: 05/14/17 08:07 05/14/17 08:07 PT 10.9 SECONDS (9.7-12.2) 05/10/17 10:20 INR 1.0 05/10/17 10:20 APTT 20 SECONDS (21-34) L 05/10/17 10:20 Assessment and Plan - Assessment and Plan (Free Text) Assessment: Patient from retirement, admitted with clots via goodrich catheter. Bleeding mild now, goodrich draining well, urine is getting more clear now. Cleared by for discharge. To be followed up in his office in 2-3 weeks for catheter change. D/w DR Ryan, discharge plan to [facility] with goodrich cather. Failed swallow evaluation, on gastrostomy feeding.
[2017-05-14 17:52] VITALS: BP 126/60; PULSE 78
--- NOTE | 2017-06-04 13:31 | CARD ---
APPROVED REPORT EKG Measurement Heart [id number] <Conclusion> Sinus rhythm with marked sinus arrhythmia Nonspecific intraventricular block T wave abnormality, consider anterior ischemia Abnormal ECG
--- NOTE | 2017-06-11 17:59 | OP ---
PROCEDURE DATE: 05/10/2017 PREOPERATIVE DIAGNOSES: Gross hematuria and had some voiding dysfunction. POSTOPERATIVE DIAGNOSES: Gross hematuria and had some voiding dysfunction. PROCEDURE PERFORMED: Cystostomy, evacuation of clots. SURGEON: Alec Jimenez MD ESTIMATED BLOOD LOSS: Less than 20 mL. COMPLICATIONS: There were no complications. FINDINGS: Basically the catheter that was originally in place was not all the way in down to the bladder and there is a little bit of a stricture and there is some blood from the prostatic area, where the catheter is, but at the end of the day, we were able to get a new Kapadia catheter back in. INDICATION: See history and physical and consultation. A very pleasant gentleman. He has some baseline dementia. He has voiding dysfunction from baseline, history of stricture disease. He is here now for the above procedure. DESCRIPTION OF PROCEDURE: After obtaining informed consent, the patient was placed on the table, routine monitor placed, and discussing options with the patient's , etc., the patient was brought here for the above procedure. Using cystoscopy, we removed the old Kapadia catheter. It does look okay, in the end of the day, it is not in all the way and it is manifested at the end of the procedure. Cystoscope via the urethra, anterior is normal, right now there is no direct strictures. Previously as stated, he has had some stricture appearing disease. The prostatic verumontanum is moderately occlusive. There is erythema from where his catheter . At this point, we irrigated out reasonable amount of clots. Once clear, we inspected bladder more closely. There is no bladder tumors or lesions seen. There is some inflammation, but no direct lesions. At this point, we inserted a new Kapadia catheter via the urethra and left it to straight drainage. The patient tolerated this without complication. Alec Jimenez MD
== END 2017-05-14 20:56 | DRG 690 ==
LOC: C.ER 12:15 → C.3T 15:37
PROVIDERS: ADMIT Internal Medicine Pulmonary Disease; ATTEND Internal Medicine Pulmonary Disease
PROC: 0T2BX0Z Change Drainage Device in Bladder, External Approach (ICD-10-PCS; 2017-05-10)
PROC: 0WCR8ZZ Extirpation of Matter from Genitourinary Tract, Via Natural or Artificial Opening Endoscopic (ICD-10-PCS; principal; 2017-05-10 13:00)
DX: N39.0 Urinary tract infection, site not specified (principal); Z93.1 Gastrostomy status; F03.90 Unspecified dementia, unspecified severity, without behavioral disturbance, psychotic disturbance, mood disturbance, and anxiety; E11.9 Type 2 diabetes mellitus without complications; D64.9 Anemia, unspecified; I10 Essential (primary) hypertension; R31.9 Hematuria, unspecified; E87.6 Hypokalemia; I25.10 Atherosclerotic heart disease of native coronary artery without angina pectoris; K59.00 Constipation, unspecified; N40.0 Benign prostatic hyperplasia without lower urinary tract symptoms; N42.1 Congestion and hemorrhage of prostate; Z79.84 Long term (current) use of oral hypoglycemic drugs; Z86.73 Personal history of transient ischemic attack (TIA), and cerebral infarction without residual deficits

== ENCOUNTER 2017-10-01 19:08 | Inpatient (IN) | payer MEDICARE ==
--- NOTE | 2017-10-01 19:29 | C.PDOC ---
History Of Present Illness Patient brought by EMS sent from shelter for apneic episode. As per EMS patient is DNR and DNI. At ED patient is unresponsive which is baseline. HPI limited secondary to patient's condition. Time Seen by Provider: 10/01/17 19:29 Chief Complaint (Nursing): Shortness Of Breath History Per: EMS History/Exam Limitations: clinical condition Onset/Duration Of Symptoms: Hrs Current Symptoms Are (Timing): Still Present Severity: Mild Past Medical History Reviewed: Historical Data, Nursing Documentation, Vital Signs Vital Signs: Last Vital Signs Temp 97.8 F 10/01/17 19:20 Pulse 95 H 10/01/17 21:18 Resp 26 H 10/01/17 21:18 BP 126/63 10/01/17 21:18 Pulse Ox 99 10/01/17 21:54 - Medical History PMH: Anemia, CVA, Dementia, HTN Surgical History: No Surg Hx - [facility] Procedures CHANGE DRAINAGE DEVICE IN BLADDER, EXTERNAL APPROACH (05/06/17) EXTIRPATION OF MATTER FROM GENITOURINARY TRACT, ENDO (05/06/17) Family History: States: No Known Family Hx - Social History Hx Tobacco Use: No Hx Alcohol Use: No Hx Substance Use: No - Immunization History Hx Tetanus Toxoid Vaccination: No Hx Influenza Vaccination: No Hx Pneumococcal Vaccination: No Review Of Systems Review Of Systems: ROS cannot be obtained secondary to pt's inabilty to answer questions. (Patient is unresponsive) Physical Exam - Physical Exam Appears: Non-toxic Skin: Warm, Dry, No Rash Head: Normacephalic Eye(s): bilateral: Normal Inspection, Other (arcus senilus) Oral Mucosa: Dry Teeth: Edentulous Neck: Supple Chest: Symmetrical Cardiovascular: Rhythm Regular Respiratory: No Rales, Rhonchi (scattered), No Wheezing Gastrointestinal/Abdominal: Soft, No Tenderness, No Guarding, No Rebound, Other (Tympanic to percussion. PEG tube in place. Kapadia intact) Back: Normal Inspection Extremity: No Pedal Edema, Capillary Refill (<2 seconds), Other (Pressure ulcer on heels) Extremity: Bilateral: Atraumatic, Normal Color And Temperature Pulses: Left Dorsalis Pedis: Normal, Right Dorsalis Pedis: Normal Neurological/Psych: No Response To Commands Gait: Unable To Assess ED Course And Treatment - Laboratory Results Result Diagrams: 10/01/17 21:14 10/01/17 21:14 ECG: Interpreted By Me, Viewed By Me ECG Rhythm: Sinus Rhythm (102), R BBB, Nonspecific Changes O2 Sat by Pulse Oximetry: 99 (RA) Pulse Ox Interpretation: Normal - Radiology CXR: Interpreted by Me, Viewed By Me CXR Interpretation: Yes: Other (unchanged from 05/10/17). No: Infiltrates, Fracture, Pnemothorax Disposition Discussed With Dr.: Jimy Ryan Comment: accepted the pt on his service and took over the care at 10:20 PM Doctor Will See Patient In The: Hospital Counseled Patient/Family Regarding: Studies Performed, Diagnosis - Disposition Disposition: HOSPITALIZED Disposition Time: 19:29 Condition: FAIR Forms: [facility] ([place]) - POA Present On Arrival: Poor Glycemic Control - Clinical Impression Clinical Impression: Dyspnea, Dementia, Anemia, Dehydration, Hypernatremia, UTI (urinary tract infection) - Scribe Statement The provider has reviewed the documentation as recorded by the Scribe Rona Yang All medical record entries made by the Scribe were at my direction and personally dictated by me. I have reviewed the chart and agree that the record accurately reflects my personal performance of the history, physical exam, medical decision making, and the department course for this patient. I have also personally directed, reviewed, and agree with the discharge instructions and disposition. Decision To Admit - Pt Status Changed To: Hospital Disposition Of: Inpatient - Admit Certification Admit to Inpatient:: After my assessment, the patient will require hospitalization for at least two midnights. This is because of the severity of symptoms shown, intensity of services needed, and/or the medical risk in this patient being treated as an outpatient. - InPatient: Physician Admission Certification: I certify that this patient requires 2 or more midnights of care for the following reason:: After my assessment, the patient will require hospitalization for at least two midnights. This is because of the severity of symptoms shown, intensity of services needed, and/or the medical risk in this patient being treated as an outpatient. - . Bed Request Type: Regular Admitting Physician: Jimy Ryan Patient Diagnosis: Dyspnea, Dementia, Anemia, Dehydration, Hypernatremia, UTI (urinary tract infection)
[2017-10-01 20:58] LABS: CHLORIDE 119 mmol/L (98-107); SODIUM 154 mmol/L (132-148)
[2017-10-01 20:59] LABS: RBC URINE 24 /hpf (0-3); URINE BILIRUBIN NEGATIVE (NEGATIVE); URINE GLUCOSE (UA) NORMAL (Normal); URINE KETONE NEGATIVE (NEGATIVE); URINE LEUKOCYTE ESTERASE 3+ Leu/uL (Negative); URINE PROTEIN 2+ mg/dL (NEGATIVE); URINE TRIPLE PHOSPHATE CRYSTAL OCC /hpf (<OCC); URINE UROBILINOGEN NORMAL mg/dL (0.2-1.0); WBC URINE 69 /hpf (0-5)
[2017-10-01 21:00] LABS: ALB/GLOB RATIO 0.8 (1.0-2.1); ALKALINE PHOSPHATASE 72 U/L (38-126); AST/SGOT 33 U/L (17-59); BILIRUBIN,TOTAL 0.7 mg/dL (0.2-1.3); CARBON DIOXIDE 29 mmol/L (22-30); GFR AFRICAN-AMERICAN > 60; TOTAL PROTEIN 6.8 g/dL (6.3-8.3)
[2017-10-01 21:01] LABS: ALT/SGPT 29 U/L (21-72); CALCIUM 8.6 mg/dl (8.6-10.4); GLUCOSE,RANDOM 127 mg/dL (75-110); MAGNESIUM 3.6 mg/dL (1.6-2.3); URINE BACTERIA FEW (<OCC); URINE BLOOD 2+ (NEGATIVE); URINE COLOR YELLOW (YELLOW)
[2017-10-01 21:09] LABS: ABG ALLEN TEST POS; DRAW SITE LR
[2017-10-01 21:18] LABS: BLOOD UREA NITROGEN 158 mg/dL (9-20)
[2017-10-01 21:21] LABS: HEMATOCRIT 28.4 % (35.0-51.0); MEAN CORPUSCULAR HEMOGLOBIN 26.2 pg (27.0-31.0); MEAN CORPUSCULAR HGB CONC 29.6 g/dL (33.0-37.0); MEAN PLATELET VOLUME 11.1 fL (7.2-11.7); RED CELL DISTRIBUTION WIDTH 21.9 % (11.5-14.5); WHITE BLOOD COUNT 9.7 K/uL (4.8-10.8)
[2017-10-01] MEDS: Lactated Ringer's 1,000 ML IV ONE ×2 (21:22→21:58)
[2017-10-01 21:27] LABS: CHLORIDE 117 mmol/L (98-107)
[2017-10-01 21:28] LABS: POTASSIUM 4.4 mmol/L (3.6-5.2); SODIUM 156 mmol/L (132-148)
[2017-10-01 21:30] LABS: AST/SGOT 24 U/L (17-59); BILIRUBIN,TOTAL 0.5 mg/dL (0.2-1.3); CARBON DIOXIDE 34 mmol/L (22-30); GFR AFRICAN-AMERICAN > 60
[2017-10-01] MEDS ORDERED: Piperacillin/Tazobact 3.375 GM in Sodium Chloride 100 ML IVPB SCH (21:30)
[2017-10-01 21:31] LABS: ALB/GLOB RATIO 0.8 (1.0-2.1); ALKALINE PHOSPHATASE 76 U/L (38-126); ALT/SGPT 28 U/L (21-72); CALCIUM 8.5 mg/dl (8.6-10.4); GLUCOSE,RANDOM 135 mg/dL (75-110); TOTAL PROTEIN 6.8 g/dL (6.3-8.3)
[2017-10-01 21:37] LABS: MEAN CELL VOLUME 88.6 fL (80.0-94.0)
[2017-10-01] MEDS: Piperacill/Tazo 3.375gm in Dex 3.375 GM/50 ML BAG IVPB SCH (21:57)
[2017-10-01 21:58] LABS: BASO # 0.1 K/uL (0.0-0.2); EOS # 0.4 K/uL (0.0-0.7); LYMPH # 2.1 K/uL (1.0-4.3); MONO # 0.3 K/uL (0.0-0.8)
[2017-10-01 22:21] LABS: BLOOD UREA NITROGEN 151 mg/dL (9-20)
[2017-10-01] MEDS: Dextrose 5%/0.45% NS 1,000 ML IV SCH (23:01)
[2017-10-02] MEDS: Piperacill/Tazo 3.375gm in Dex 3.375 GM/50 ML BAG IVPB SCH ×2 (04:10→09:28)
[2017-10-02] MEDS: Dextrose 5%/0.45% NS 1,000 ML IV SCH (09:25)
--- NOTE | 2017-10-02 09:36 | RAD ---
PROCEDURE: CHEST RADIOGRAPH, 1 VIEW. Technique: Single view portable semi erect @ 19:35 HISTORY: SOB COMPARISON: 05/10/2017 FINDINGS: LUNGS: Clear. PLEURA: No pneumothorax or pleural fluid seen. CARDIOVASCULAR: No radiographic findings to suggest acute or significant cardiovascular disease. OSSEOUS STRUCTURES: No significant abnormalities. VISUALIZED UPPER ABDOMEN: Normal. OTHER FINDINGS: None. IMPRESSION: No active disease. No acute/significant interval changes.
[2017-10-02] MEDS: Imipenem/Cilastatin 500 MG in Dextrose 5% In Water 100 ML IVPB SCH ×2 (14:17→21:26)
--- NOTE | 2017-10-02 16:04 | CP.PCM.PN ---
Subjective - Date & Time of Evaluation Date of Evaluation: 10/02/17 Time of Evaluation: 15:57 - Subjective Subjective: Medicine Progress Note- Dr Ryan's service Patient seen and examined. Patient is unresponsive to commands and stimuli, per patient's baseline. No acute events overnight. Patient continues to have episodes of apneic breathing. Blood pressure has remained stable. ROS could not be obtained. Patient was brought into hospital yday for apneic breathing and dehydration from correction. Objective - Vital Signs/Intake and Output Vital Signs (last 24 hours): Temp Pulse Resp BP Pulse Ox 97.6 F 91 H 12 102/57 L 100 10/02/17 07:00 10/02/17 07:00 10/02/17 07:15 10/02/17 07:00 10/02/17 07:15 - Medications Medications: Current Medications Acetaminophen (Tylenol 650 Mg Supp) 650 mg W[place] Q6 PRN PRN Reason: Fever >100.4 F Heparin Sodium (Porcine) (Heparin) 5,000 units SC BID [facility] Last Admin: 10/02/17 09:28 Dose: 5,000 units Piperacillin Sod/Tazobactam Sod (Zosyn 3.375 Gm Iv Premix) 3.375 gm in 50 mls @ 100 mls/hr IVPB Q6H [facility] Last Admin: 10/02/17 09:28 Dose: 100 mls/hr Imipenem/Cilastatin Sodium 500 (mg/ Dextrose) 100 mls @ 100 mls/hr IVPB Q8 [facility] Last Admin: 10/02/17 14:17 Dose: 100 mls/hr Dextrose/Sodium Chloride (Dextrose 5%/0.45% Ns 1000 Ml) 1,000 mls @ 100 mls/hr IV .Q10H [facility] Last Admin: 10/02/17 09:25 Dose: 100 mls/hr - Labs Labs: 10/01/17 21:14 10/01/17 21:14 PT 11.2 SECONDS (9.7-12.2) 10/02/17 02:14 INR 1.0 10/02/17 02:14 APTT 31 SECONDS (21-34) 10/02/17 02:14 - Constitutional Appears: No Acute Distress, Chronically Ill - Head Exam Head Exam: ATRAUMATIC, NORMOCEPHALIC - ENT Exam ENT Exam: Mucous Membranes Dry - Respiratory Exam Respiratory Exam: Rales. absent: Accessory Muscle Use, Decreased Breath Sounds - Cardiovascular Exam Cardiovascular Exam: REGULAR RHYTHM, +S1, +S2 - GI/Abdominal Exam GI & Abdominal Exam: Soft, Normal Bowel Sounds. absent: Firm, Guarding Additional comments: PEG tube - Extremities Exam Extremities Exam: absent: Pedal Edema - Neurological Exam Neurological Exam: absent: Alert, Awake - Psychiatric Exam Psychiatric exam: absent: Normal Affect, Normal Mood - Skin Skin Exam: Dry, Normal Color, Warm Assessment and Plan - Assessment and Plan (Free Text) Assessment: Dehydration IVF 1/2NS @100cc/hr Monitor BMP Agonal Breathing CXR shows no active disease SpO2 100% on NC patient is DNR/DNI- polst form in chart Monitor vitals q4h Duoneb 3 Mg/0.5 Mg (3 Ml) IH Q6H PRN Hypernatremia Possibly secondary to dehydration Will monitor bmp daily If does not improve will consult merchant miller JEY Likely due to dehydration Will hold home meds: Metformin Diabetes ISS Crestor 40 mg PEG HS [facility] Accuchecks Home Metformin on hold due to JEY HTN Patient with low BP today- continue home meds with holding parameters Norvasc 10 mg PEG DAILY [facility] Vasotec 10 mg GT DAILY [facility] Apresoline 50 mg PEG Q8H [facility] Lopressor 75 mg PEG Q12H [facility] Hx Anemia Chronic Hgb 8.4 Monitor CBC daily Continue procrit MWF Ferrous sulfate TID PEG Hx Dementia / CVA Patient with AMS, non-verbal Compazine Rectal Supp 25 mg RC Q12 PRN Tube Feeds via PEG tube- Glucerna 1.5 @45cc/hr, continuous NPO Prophylaxis Tylenol 325mg Tab 650 mg PEG Q4H PRN Pepcid 20 mg PEG DAILY [facility] SCDs PT/OT DNR/DNI code status Management per Dr Ryan
[2017-10-02] MEDS: Ferrous Sulfate 300 mg/5 mL Liq UD PEG SCH (17:29)
[2017-10-02] MEDS: Sodium Chloride 0.45% 1,000 ML IV SCH (17:31)
[2017-10-02] MEDS: (Novolin R) Insulin Human Regular 100 units/ml vial SC SCH ×2 (17:34→22:24)
[2017-10-02] MEDS: Albuterol-Ipratrop 3 mg / 0.5 (3 ml) UD IH PRN (19:59)
[2017-10-03 01:34] LABS: BASO % 0.6 % (0.0-2.0); EOS # 0.1 K/uL (0.0-0.7); EOS % 0.9 % (0.0-4.0); HEMATOCRIT 26.7 % (35.0-51.0); LYMPH # 0.8 K/uL (1.0-4.3); LYMPH % 11.1 % (20.0-40.0); MEAN CELL VOLUME 88.5 fL (80.0-94.0); MEAN CORPUSCULAR HEMOGLOBIN 25.8 pg (27.0-31.0); MEAN CORPUSCULAR HGB CONC 29.2 g/dL (33.0-37.0); MEAN PLATELET VOLUME 11.6 fL (7.2-11.7); MONO # 0.4 K/uL (0.0-0.8); MONO % 5.1 % (0.0-10.0); RED CELL DISTRIBUTION WIDTH 22.1 % (11.5-14.5); WHITE BLOOD COUNT 7.3 K/uL (4.8-10.8)
[2017-10-03 02:45] LABS: CALCIUM 8.4 mg/dl (8.6-10.4); CARBON DIOXIDE 37 mmol/L (22-30); CHLORIDE 121 mmol/L (98-107); GFR AFRICAN-AMERICAN > 60; GLUCOSE,RANDOM 143 mg/dL (75-110); POTASSIUM 4.1 mmol/L (3.6-5.2); SODIUM 165 mmol/L (132-148)
[2017-10-03 03:20] LABS: BLOOD UREA NITROGEN 123 mg/dL (9-20)
[2017-10-03] MEDS: Sodium Chloride 0.45% 1,000 ML IV SCH (03:40)
[2017-10-03] MEDS: Imipenem/Cilastatin 500 MG in Dextrose 5% In Water 100 ML IVPB SCH ×3 (05:57→21:31)
[2017-10-03] MEDS: Albuterol-Ipratrop 3 mg / 0.5 (3 ml) UD IH PRN (07:51)
[2017-10-03 07:59] LABS: BASO % 0.3 % (0.0-2.0); EOS # 0.1 K/uL (0.0-0.7); EOS % 1.1 % (0.0-4.0); HEMATOCRIT 29.6 % (35.0-51.0); LYMPH # 1.4 K/uL (1.0-4.3); MEAN CELL VOLUME 88.6 fL (80.0-94.0); MEAN CORPUSCULAR HEMOGLOBIN 25.9 pg (27.0-31.0); MEAN CORPUSCULAR HGB CONC 29.2 g/dL (33.0-37.0); MEAN PLATELET VOLUME 11.2 fL (7.2-11.7); MONO # 0.4 K/uL (0.0-0.8); MONO % 5.5 % (0.0-10.0); NRBC % 0.8 % (0.0-2.0); RED CELL DISTRIBUTION WIDTH 21.7 % (11.5-14.5); WHITE BLOOD COUNT 7.1 K/uL (4.8-10.8)
[2017-10-03] MEDS: (Novolin R) Insulin Human Regular 100 units/ml vial SC SCH ×4 (08:30→21:31)
[2017-10-03] MEDS ORDERED: Epoetin Alfa 10,000 unit/ml Dialysis SC SCH (09:00)
--- NOTE | 2017-10-03 09:34 | CP.PCM.PN ---
Subjective - Date & Time of Evaluation Date of Evaluation: 10/03/17 Time of Evaluation: 07:00 - Subjective Subjective: Medicine Progress Note- Dr Ryan's service Patient seen and examined. Patient is unresponsive to commands and stimuli, per patient's baseline. ROS could not be obtained. No acute events overnight. Objective - Vital Signs/Intake and Output Vital Signs (last 24 hours): Temp Pulse Resp BP Pulse Ox 98.4 F 84 20 133/74 96 10/03/17 08:00 10/03/17 08:00 10/03/17 08:00 10/03/17 08:00 10/03/17 08:00 Intake and Output: 10/03/17 10/03/17 06:59 18:59 Intake Total 2185 Output Total 900 Balance 1285 - Medications Medications: Current Medications Acetaminophen (Tylenol 650 Mg Supp) 650 mg MT Q6 PRN PRN Reason: Fever >100.4 F Albuterol/Ipratropium (Duoneb 3 Mg/0.5 Mg (3 Ml) Ud) 3 ml IH Q6H PRN PRN Reason: Shortness of Breath Last Admin: 10/03/17 07:51 Dose: 3 ml Amlodipine Besylate (Norvasc) 10 mg PEG DAILY [facility] Doxazosin Mesylate (Cardura) 2 mg PEG DAILY [facility] Enalapril Maleate (Vasotec) 10 mg GT DAILY [facility] Epoetin Murtaza (Procrit) 10,000 unit SC MWF [facility] Famotidine (Pepcid) 20 mg PEG DAILY [facility] Ferrous Sulfate (Feosol Liq) 300 mg PEG TID [facility] Last Admin: 10/02/17 17:29 Dose: 300 mg Heparin Sodium (Porcine) (Heparin) 5,000 units SC BID [facility] Last Admin: 10/02/17 17:35 Dose: 5,000 units Imipenem/Cilastatin Sodium 500 (mg/ Dextrose) 100 mls @ 100 mls/hr IVPB Q8 [facility] Last Admin: 10/03/17 05:57 Dose: 100 mls/hr Dextrose (Dextrose 5% In Water 1000 Ml) 1,000 mls @ 100 mls/hr IV .Q10H [facility] Last Admin: 10/03/17 06:39 Dose: 100 mls/hr Insulin Human Regular (Novolin R) 0 unit SC ACHS [facility] PRN Reason: Protocol Last Admin: 10/03/17 08:30 Dose: Not Given Metoprolol Tartrate (Lopressor) 50 mg PEG Q12H [facility] Last Admin: 10/03/17 04:55 Dose: Not Given Rosuvastatin Calcium (Crestor) 40 mg PEG HS [facility] Last Admin: 10/02/17 21:28 Dose: 40 mg - Labs Labs: 10/03/17 07:49 10/03/17 01:12 PT 11.2 SECONDS (9.7-12.2) 10/02/17 02:14 INR 1.0 10/02/17 02:14 APTT 31 SECONDS (21-34) 10/02/17 02:14 - Constitutional Appears: No Acute Distress, Chronically Ill - Head Exam Head Exam: ATRAUMATIC, NORMOCEPHALIC - ENT Exam ENT Exam: Mucous Membranes Dry - Respiratory Exam Respiratory Exam: Rhonchi. absent: Accessory Muscle Use, Decreased Breath Sounds - Cardiovascular Exam Cardiovascular Exam: REGULAR RHYTHM, +S1, +S2 - GI/Abdominal Exam GI & Abdominal Exam: Soft, Normal Bowel Sounds. absent: Firm, Guarding Additional comments: PEG tube in place - Extremities Exam Extremities Exam: absent: Pedal Edema - Neurological Exam Neurological Exam: absent: Alert, Awake - Psychiatric Exam Psychiatric exam: absent: Normal Affect, Normal Mood - Skin Skin Exam: Dry, Normal Color, Warm Kapadia catheter in place, draining blood tinged urine with sediment Assessment and Plan - Assessment and Plan (Free Text) Assessment: Dehydration IVF D5W @100cc/hr Monitor BMP and I/Os Agonal Breathing CXR shows no active disease SpO2 100% on NC patient is DNR/DNI- polst form in chart Monitor vitals q4h Duoneb 3 Mg/0.5 Mg (3 Ml) IH Q6H PRN Hypernatremia Na+ increased to 165 this AM Possibly secondary to dehydration ? Consulted Brass Finisher Dr Hamilton, help appreciated- will f/u recommendations Will monitor bmp daily JEY BUN improving with IVF Continue D5W @100cc/hr Likely due to dehydration Will hold home meds: Metformin Diabetes ISS Crestor 40 mg PEG HS [facility] Accuchecks Home Metformin on hold due to JEY HTN Patient with low BP- continue home meds with holding parameters Norvasc 10 mg PEG DAILY [facility] Vasotec 10 mg GT DAILY [facility] Apresoline 50 mg PEG Q8H [facility] Lopressor 75 mg PEG Q12H [facility] Hx Anemia Chronic Hgb 8.6, stable Monitor CBC daily Continue procrit MWF Ferrous sulfate TID PEG Hx Dementia / CVA Patient non-verbal at baseline, chronic Compazine Rectal Supp 25 mg RC Q12 PRN Tube Feeds via PEG tube- Glucerna 1.5 @45cc/hr, continuous NPO Prophylaxis Tylenol 325mg Tab 650 mg PEG Q4H PRN Pepcid 20 mg PEG DAILY [facility] SCDs PT/OT DNR/DNI code status Management per Dr Ryan
[2017-10-03] MEDS: Albuterol-Ipratrop 3 mg / 0.5 (3 ml) UD IH SCH ×3 (09:51→20:14)
--- NOTE | 2017-10-03 10:29 | HP ---
HISTORY OF PRESENT ILLNESS: The patient is an 82-year-old man admitted to the hospital with chief complaint of altered mental status and sepsis. The patient came into the hospital, advised admission. The patient has a past medical history of sepsis, dementia, CVA. PHYSICAL EXAMINATION: GENERAL: The patient is awake, alert, and oriented. VITAL SIGNS: Temperature 98, pulse 90. HEENT: Within normal limits. NECK: Supple. CHEST: Symmetrical. HEART: Regular. ABDOMEN: Soft. EXTREMITIES: No edema. IMPRESSION AND PLAN: The patient with sepsis, altered mental status. Patient is on IV fluids, antibiotic. Patient is DNR/DNI. Jimy Ryan MD
[2017-10-03] MEDS: Ferrous Sulfate 300 mg/5 mL Liq UD PEG SCH ×3 (11:30→17:34)
[2017-10-03] MEDS: EPOETIN ALFA 10,000 UNIT/ML ML SC SCH (12:03)
--- NOTE | 2017-10-03 13:26 | CP.PCM.CON ---
History of Present Illness - History of Present Illness History of Present Illness: 82 y/o AA man sent from [place] with agonal breathing. Treated for severe pre-renal azotemia; now with increased hypernatremia PMH: HTN CVA DEMENTIA PSH: PEG HX from chart ; patient not responsive Review of Systems - Review of Systems Systems not reviewed;Unavailable: Altered Mental Status Past Patient History - Infectious Disease Hx of Infectious Diseases: None - Past Medical History & Family History Past Medical History?: Yes Pertinent Family History: unkown - Past Social History Smoking Status: unresponsi Home Situation {Lives}: [facility] (cannot obtain further hx- only from records) - CARDIAC Hx Hypertension: Yes - PULMONARY Other/Comment: Patient has periods of apneic episode - NEUROLOGICAL HX Cerebrovascular Accident: Yes - ENDOCRINE/METABOLIC Hx Diabetes Mellitus Type 2: Yes - HEMATOLOGICAL/ONCOLOGICAL Hx Anemia: Yes - MUSCULOSKELETAL/RHEUMATOLOGICAL Hx Falls: Yes - GASTROINTESTINAL Other/Comment: G-Tube - GENITOURINARY/GYNECOLOGICAL Hx Prostate Problems: Yes - PSYCHIATRIC Hx Substance Use: No - SURGICAL HISTORY Hx Orthopedic Surgery: Yes (right hip sx) Other/Comment: g-tube - ANESTHESIA Hx Anesthesia: Yes Hx Anesthesia Reactions: No Meds Allergies/Adverse Reactions: Allergies Allergy/AdvReac Type Severity Reaction Status Date / Time No Known Allergies Allergy Verified 05/06/17 13:11 - Medications Medications: Current Medications Acetaminophen (Tylenol 650 Mg Supp) 650 mg AR Q6 PRN PRN Reason: Fever >100.4 F Albuterol/Ipratropium (Duoneb 3 Mg/0.5 Mg (3 Ml) Ud) 3 ml IH RQ6 [facility] Last Admin: 10/03/17 13:18 Dose: 3 ml Amlodipine Besylate (Norvasc) 10 mg PEG DAILY [facility] Last Admin: 10/03/17 11:36 Dose: 10 mg Doxazosin Mesylate (Cardura) 2 mg PEG DAILY [facility] Last Admin: 10/03/17 11:31 Dose: 2 mg Enalapril Maleate (Vasotec) 10 mg GT DAILY [facility] Last Admin: 10/03/17 11:30 Dose: 10 mg Epoetin Murtaza (Procrit) 10,000 unit SC MWF [facility] Last Admin: 10/03/17 12:03 Dose: 10,000 unit Famotidine (Pepcid) 20 mg PEG DAILY [facility] Last Admin: 10/03/17 11:32 Dose: 20 mg Ferrous Sulfate (Feosol Liq) 300 mg PEG TID [facility] Last Admin: 10/03/17 11:30 Dose: 300 mg Heparin Sodium (Porcine) (Heparin) 5,000 units SC BID [facility] Last Admin: 10/03/17 11:31 Dose: 5,000 units Imipenem/Cilastatin Sodium 500 (mg/ Dextrose) 100 mls @ 100 mls/hr IVPB Q8 [facility] Last Admin: 10/03/17 05:57 Dose: 100 mls/hr Dextrose (Dextrose 5% In Water 1000 Ml) 1,000 mls @ 100 mls/hr IV .Q10H [facility] Last Admin: 10/03/17 06:39 Dose: 100 mls/hr Insulin Human Regular (Novolin R) 0 unit SC ACHS [facility] PRN Reason: Protocol Last Admin: 10/03/17 12:03 Dose: 3 unit Metoprolol Tartrate (Lopressor) 50 mg PEG Q12H [facility] Last Admin: 10/03/17 04:55 Dose: Not Given Rosuvastatin Calcium (Crestor) 40 mg PEG HS [facility] Last Admin: 10/02/17 21:28 Dose: 40 mg Physical Exam - Constitutional Appears: In Acute Distress, Chronically Ill - Head Exam Head Exam: ATRAUMATIC, NORMAL INSPECTION - Neck Exam Neck exam: Positive for: Normal Inspection. Negative for: Tenderness - Respiratory Exam Respiratory Exam: Rhonchi, Respiratory Distress - Cardiovascular Exam Cardiovascular Exam: REGULAR RHYTHM, +S1 - GI/Abdominal Exam GI & Abdominal Exam: Soft. absent: Tenderness Additional comments: with PEG - Extremities Exam Extremities exam: Positive for: normal inspection. Negative for: tenderness - Neurological Exam Neurological exam: Altered, Motor Sensory Deficit - Skin Skin Exam: Dry, Warm Results - Vital Signs Recent Vital Signs: Last Vital Signs Temp 98.4 F 10/03/17 08:00 Pulse 84 10/03/17 08:00 Resp 20 10/03/17 08:00 BP 133/74 10/03/17 11:30 Pulse Ox 96 10/03/17 08:00 - Labs Result Diagrams: 10/03/17 07:49 10/03/17 01:12 Labs: Laboratory Results - last 24 hr 10/02/17 10/02/17 10/03/17 16:42 20:57 01:12 WBC 7.3 RBC 3.02 L Hgb 7.8 L Hct 26.7 L MCV 88.5 MCH 25.8 L MCHC 29.2 L RDW 22.1 H Plt Count 119 L MPV 11.6 Neut % (Auto) 82.3 H Lymph % (Auto) 11.1 L Crook % (Auto) 5.1 Eos % (Auto) 0.9 Baso % (Auto) 0.6 Neut # 6.0 Lymph # 0.8 L Crook # 0.4 Eos # 0.1 Baso # 0.0 Sodium Potassium Chloride Carbon Dioxide Anion Gap BUN Creatinine Est GFR ( Amer) Est GFR (Non-Af Amer) POC Glucose (mg/dL) 214 H 188 H Random Glucose Calcium 10/03/17 10/03/17 10/03/17 01:12 07:12 07:49 WBC 7.1 RBC 3.33 L Hgb 8.6 L Hct 29.6 L MCV 88.6 MCH 25.9 L MCHC 29.2 L RDW 21.7 H Plt Count 130 MPV 11.2 Neut % (Auto) 73.1 Lymph % (Auto) 20.0 Crook % (Auto) 5.5 Eos % (Auto) 1.1 Baso % (Auto) 0.3 Neut # 5.2 Lymph # 1.4 Crook # 0.4 Eos # 0.1 Baso # 0.0 Sodium 165 H* Potassium 4.1 Chloride 121 H Carbon Dioxide 37 H Anion Gap 11 BUN 123 H* Creatinine 1.1 Est GFR ( Amer) > 60 Est GFR (Non-Af Amer) > 60 POC Glucose (mg/dL) 149 H Random Glucose 143 H Calcium 8.4 L Assessment & Plan (1) Hypernatremia Status: Acute (2) Dementia Status: Acute (3) History of CVA (cerebrovascular accident) without residual deficits Status: Acute - Assessment and Plan (Free Text) Plan: agree with switch to D5W fluids check serial chemistries check ua, urine na
[2017-10-03 14:25] LABS: CARBON DIOXIDE 34 mmol/L (22-30); CHLORIDE 119 mmol/L (98-107); POTASSIUM 3.6 mmol/L (3.6-5.2); SODIUM 159 mmol/L (132-148); TOTAL PROTEIN 6.4 g/dL (6.3-8.3)
[2017-10-03 14:31] LABS: ALB/GLOB RATIO 0.8 (1.0-2.1)
[2017-10-03 15:00] LABS: BLOOD UREA NITROGEN 110 mg/dL (9-20)
[2017-10-03 15:02] LABS: ALKALINE PHOSPHATASE 68 U/L (38-126); ALT/SGPT 30 U/L (21-72); AST/SGOT 28 U/L (17-59); BILIRUBIN,TOTAL 0.5 mg/dL (0.2-1.3); CALCIUM 8.3 mg/dl (8.6-10.4); GFR AFRICAN-AMERICAN > 60; GLUCOSE,RANDOM 162 mg/dL (75-110); MAGNESIUM 3.3 mg/dL (1.6-2.3); PHOSPHOROUS 2.6 mg/dL (2.5-4.5)
[2017-10-03 18:41] LABS: RBC URINE 12 /hpf (0-3); URINE BACTERIA MOD (<OCC); URINE BILIRUBIN NEGATIVE (NEGATIVE); URINE BLOOD 2+ (NEGATIVE); URINE COLOR Yellow (YELLOW); URINE GLUCOSE (UA) 1+ mg/dL (Normal); URINE KETONE NEGATIVE (NEGATIVE); URINE LEUKOCYTE ESTERASE 3+ Leu/uL (Negative); URINE PROTEIN 2+ mg/dL (NEGATIVE); URINE UROBILINOGEN NORMAL mg/dL (0.2-1.0); WBC CLUMPS MOD /hpf; WBC URINE 207 /hpf (0-5)
[2017-10-04] MEDS: Albuterol-Ipratrop 3 mg / 0.5 (3 ml) UD IH SCH ×4 (01:53→19:23)
[2017-10-04] MEDS: Imipenem/Cilastatin 500 MG in Dextrose 5% In Water 100 ML IVPB SCH ×2 (06:04→13:44)
--- NOTE | 2017-10-04 08:48 | CARD ---
APPROVED REPORT EKG Measurement Heart [id number] <Conclusion> Sinus tachycardia Possible Left atrial enlargement Left axis deviation Right bundle branch block Septal infarct, age undetermined Abnormal ECG
[2017-10-04] MEDS: (Novolin R) Insulin Human Regular 100 units/ml vial SC SCH ×4 (08:49→21:59)
[2017-10-04 09:04] LABS: WHITE BLOOD COUNT 7.4 K/uL (4.8-10.8)
[2017-10-04 09:15] LABS: BASO % 0.2 % (0.0-2.0); EOS # 0.1 K/uL (0.0-0.7); EOS % 1.4 % (0.0-4.0); HEMATOCRIT 27.5 % (35.0-51.0); LYMPH # 2.1 K/uL (1.0-4.3); LYMPH % 28.9 % (20.0-40.0); MEAN CORPUSCULAR HEMOGLOBIN 24.9 pg (27.0-31.0); MEAN CORPUSCULAR HGB CONC 28.6 g/dL (33.0-37.0); MEAN PLATELET VOLUME 11.2 fL (7.2-11.7); MONO # 0.5 K/uL (0.0-0.8); MONO % 6.2 % (0.0-10.0); NRBC % 0.7 % (0.0-2.0); RED CELL DISTRIBUTION WIDTH 22.3 % (11.5-14.5)
[2017-10-04 09:18] LABS: BILIRUBIN,TOTAL 0.5 mg/dL (0.2-1.3); BLOOD UREA NITROGEN 89 mg/dL (9-20); CALCIUM 8.3 mg/dl (8.6-10.4); CARBON DIOXIDE 38 mmol/L (22-30); CHLORIDE 119 mmol/L (98-107); GFR AFRICAN-AMERICAN > 60; GLUCOSE,RANDOM 129 mg/dL (75-110); MAGNESIUM 3.1 mg/dL (1.6-2.3); PHOSPHOROUS 2.5 mg/dL (2.5-4.5); SODIUM 158 mmol/L (132-148); TOTAL PROTEIN 6.5 g/dL (6.3-8.3)
[2017-10-04 09:19] LABS: ALB/GLOB RATIO 0.8 (1.0-2.1); ALKALINE PHOSPHATASE 72 U/L (38-126); ALT/SGPT 28 U/L (21-72); AST/SGOT 29 U/L (17-59)
--- NOTE | 2017-10-04 09:51 | CP.PCM.PN ---
Subjective - Date & Time of Evaluation Date of Evaluation: 10/04/17 Time of Evaluation: 09:49 - Subjective Subjective: Respirations more agonal IV fluids stopped Less pre-renal; Na levelks decreased with previos fluids UO -1300ml BP lower- on several BP meds Likely has aspiration pneumonia Objective - Vital Signs/Intake and Output Vital Signs (last 24 hours): Temp Pulse Resp BP Pulse Ox 98.8 F 98 H 20 133/72 98 10/04/17 07:39 10/04/17 07:39 10/04/17 07:39 10/04/17 07:39 10/04/17 07:39 Intake and Output: 10/04/17 10/04/17 06:59 18:59 Intake Total 2360 Output Total 400 Balance 1960 - Medications Medications: Current Medications Acetaminophen (Tylenol 650 Mg Supp) 650 mg ID Q6 PRN PRN Reason: Fever >100.4 F Albuterol/Ipratropium (Duoneb 3 Mg/0.5 Mg (3 Ml) Ud) 3 ml IH RQ6 [facility] Last Admin: 10/04/17 07:15 Dose: 3 ml Amlodipine Besylate (Norvasc) 10 mg PEG DAILY [facility] Last Admin: 10/03/17 11:36 Dose: 10 mg Doxazosin Mesylate (Cardura) 2 mg PEG DAILY [facility] Last Admin: 10/03/17 11:31 Dose: 2 mg Enalapril Maleate (Vasotec) 10 mg GT DAILY [facility] Last Admin: 10/03/17 11:30 Dose: 10 mg Epoetin Murtaza (Procrit) 10,000 unit SC MWF [facility] Last Admin: 10/03/17 12:03 Dose: 10,000 unit Famotidine (Pepcid) 20 mg PEG DAILY [facility] Last Admin: 10/03/17 11:32 Dose: 20 mg Ferrous Sulfate (Feosol Liq) 300 mg PEG TID [facility] Last Admin: 10/03/17 17:34 Dose: 300 mg Heparin Sodium (Porcine) (Heparin) 5,000 units SC BID [facility] Last Admin: 10/03/17 17:34 Dose: 5,000 units Imipenem/Cilastatin Sodium 500 (mg/ Dextrose) 100 mls @ 100 mls/hr IVPB Q8 [facility] Last Admin: 10/04/17 06:04 Dose: 100 mls/hr Dextrose (Dextrose 5% In Water 1000 Ml) 1,000 mls @ 100 mls/hr IV .Q10H [facility] Last Admin: 10/04/17 03:00 Dose: Not Given Insulin Human Regular (Novolin R) 0 unit SC ACHS [facility] PRN Reason: Protocol Last Admin: 10/04/17 08:49 Dose: 2 unit Metoprolol Tartrate (Lopressor) 50 mg PEG Q12H [facility] Last Admin: 10/04/17 04:53 Dose: Not Given Rosuvastatin Calcium (Crestor) 40 mg PEG HS [facility] Last Admin: 10/03/17 21:30 Dose: 40 mg - Labs Labs: 10/04/17 08:38 10/04/17 08:38 PT 11.2 SECONDS (9.7-12.2) 10/02/17 02:14 INR 1.0 10/02/17 02:14 APTT 31 SECONDS (21-34) 10/02/17 02:14 - Constitutional Appears: In Acute Distress, Chronically Ill - Head Exam Head Exam: ATRAUMATIC, NORMAL INSPECTION - Eye Exam Eye Exam: EOMI, Normal appearance - Neck Exam Neck Exam: Normal Inspection. absent: Tenderness - Respiratory Exam Respiratory Exam: Rhonchi, Respiratory Distress - Cardiovascular Exam Cardiovascular Exam: REGULAR RHYTHM, +S1 - GI/Abdominal Exam GI & Abdominal Exam: Soft. absent: Tenderness - Extremities Exam Extremities Exam: Normal Inspection. absent: Tenderness - Neurological Exam Neurological Exam: Altered - Skin Skin Exam: Dry, Warm Assessment and Plan (1) Hypernatremia Status: Acute (2) Dementia Status: Acute (3) History of CVA (cerebrovascular accident) without residual deficits Status: Acute - Assessment and Plan (Free Text) Plan: change to free water via PEG decrease BP meds supportive care- pt DNR/ DNI status
[2017-10-04] MEDS: Ferrous Sulfate 300 mg/5 mL Liq UD PEG SCH ×3 (10:55→18:19)
--- NOTE | 2017-10-04 14:44 | CP.PCM.PN ---
Subjective - Date & Time of Evaluation Date of Evaluation: 10/04/17 Time of Evaluation: 14:40 - Subjective Subjective: Progress note. DR. Ryan- attending Pt seen and examined at bedside. Pt is unresponsive. Patient has agonal breathing. He is DNR/DNI, will put in hospice consult. ROS unobtainable. Objective - Vital Signs/Intake and Output Vital Signs (last 24 hours): Temp Pulse Resp BP Pulse Ox 98.8 F 98 H 20 133/72 98 10/04/17 07:39 10/04/17 07:39 10/04/17 07:39 10/04/17 07:39 10/04/17 07:39 Intake and Output: 10/04/17 10/04/17 06:59 18:59 Intake Total 2360 Output Total 400 Balance 1960 - Medications Medications: Current Medications Acetaminophen (Tylenol 650 Mg Supp) 650 mg [place] Q6 PRN PRN Reason: Fever >100.4 F Albuterol/Ipratropium (Duoneb 3 Mg/0.5 Mg (3 Ml) Ud) 3 ml IH RQ6 [facility] Last Admin: 10/04/17 13:28 Dose: 3 ml Doxazosin Mesylate (Cardura) 2 mg PEG DAILY [facility] Last Admin: 10/04/17 10:55 Dose: 2 mg Epoetin Murtaza (Procrit) 10,000 unit SC MWF [facility] Last Admin: 10/03/17 12:03 Dose: 10,000 unit Famotidine (Pepcid) 20 mg PEG DAILY [facility] Last Admin: 10/04/17 10:55 Dose: 20 mg Ferrous Sulfate (Feosol Liq) 300 mg PEG TID [facility] Last Admin: 10/04/17 10:55 Dose: 300 mg Heparin Sodium (Porcine) (Heparin) 5,000 units SC BID [facility] Last Admin: 10/04/17 10:55 Dose: 5,000 units Imipenem/Cilastatin Sodium 500 (mg/ Dextrose) 100 mls @ 100 mls/hr IVPB Q8 [facility] Last Admin: 10/04/17 13:44 Dose: 100 mls/hr Dextrose (Dextrose 5% In Water 1000 Ml) 1,000 mls @ 100 mls/hr IV .Q10H [facility] Last Admin: 10/04/17 03:00 Dose: Not Given Insulin Human Regular (Novolin R) 0 unit SC ACHS [facility] PRN Reason: Protocol Last Admin: 10/04/17 12:04 Dose: 2 unit Metoprolol Tartrate (Lopressor) 50 mg PEG Q12H [facility] Last Admin: 10/04/17 04:53 Dose: Not Given Rosuvastatin Calcium (Crestor) 40 mg PEG HS [facility] Last Admin: 10/03/17 21:30 Dose: 40 mg - Labs Labs: 10/04/17 08:38 10/04/17 08:38 PT 11.2 SECONDS (9.7-12.2) 10/02/17 02:14 INR 1.0 10/02/17 02:14 APTT 31 SECONDS (21-34) 10/02/17 02:14 - Constitutional Appears: Chronically Ill - Head Exam Head Exam: ATRAUMATIC, NORMAL INSPECTION, NORMOCEPHALIC - Eye Exam Eye Exam: EOMI - ENT Exam ENT Exam: Mucous Membranes Dry - Neck Exam Neck Exam: Full ROM, Normal Inspection - Respiratory Exam Respiratory Exam: Respiratory Distress - Cardiovascular Exam Cardiovascular Exam: +S1, +S2 - GI/Abdominal Exam GI & Abdominal Exam: Soft, Normal Bowel Sounds. absent: Tenderness - Extremities Exam Extremities Exam: absent: Full ROM, Normal Inspection - Neurological Exam Neurological Exam: Altered - Psychiatric Exam Additional comments: Unable to assess - Skin Skin Exam: Dry, Intact, Normal Color, Warm Assessment and Plan - Assessment and Plan (Free Text) Assessment: This is an 82 yo male with Dehydration -IVF D5W @100cc/hr -Monitor BMP -strict I/O Agonal Breathing -CXR shows no active disease -SpO2 100% on NC -patient is DNR/DNI- polst form in chart -Monitor vitals q4h -Duoneb 3 Mg/0.5 Mg (3 Ml) IH Q6H PRN -will do palliative care sonsult Hypernatremia -Decreased to 158 this morning -Possibly secondary to dehydration ? -Consulted Sr. Consultant Dr Hamilton, help appreciated- will f/u recommendations -Will monitor bmp daily JEY -BUN improving with IVF -Continue D5W @100cc/hr -Likely due to dehydration -Will hold home meds: Metformin Diabetes -ISS -continue Crestor 40 mg PEG HS [facility] -Accuchecks -Home Metformin on hold due to JEY HTN -Patient with low BP- continue home meds with holding parameters -Norvasc 10 mg PEG DAILY [facility] -enalapril 10 mg GT DAILY [facility] -hydralazine 50 mg PEG Q8H [facility] -Lopressor 75 mg PEG Q12H [facility] Hx Anemia -Chronic -HGB 7.9 today -Monitor CBC daily -Continue procrit MWF -Ferrous sulfate TID PEG Hx Dementia / CVA -Patient non-verbal at baseline, chronic -Compazine Rectal Supp 25 mg RC Q12 PRN -Tube Feeds via PEG tube- Glucerna 1.5 @45cc/hr, continuous -NPO GI/DVT Prophylaxis -Tylenol 325mg Tab 650 mg PEG Q4H PRN -Pepcid 20 mg PEG DAILY [facility] -SCDs -PT/OT -DNR/DNI code status Management per Dr Ryan
[2017-10-05] MEDS: Albuterol-Ipratrop 3 mg / 0.5 (3 ml) UD IH SCH ×4 (01:44→19:16)
[2017-10-05 07:18] LABS: BASO % 0.4 % (0.0-2.0); EOS # 0.1 K/uL (0.0-0.7); EOS % 1.5 % (0.0-4.0); HEMATOCRIT 25.8 % (35.0-51.0); LYMPH # 1.2 K/uL (1.0-4.3); LYMPH % 15.6 % (20.0-40.0); MEAN CELL VOLUME 87.4 fL (80.0-94.0); MEAN CORPUSCULAR HEMOGLOBIN 26.2 pg (27.0-31.0); MEAN CORPUSCULAR HGB CONC 29.9 g/dL (33.0-37.0); MEAN PLATELET VOLUME 9.9 fL (7.2-11.7); MONO # 0.5 K/uL (0.0-0.8); MONO % 6.5 % (0.0-10.0); NRBC % 0.7 % (0.0-2.0); RED CELL DISTRIBUTION WIDTH 22.6 % (11.5-14.5); WHITE BLOOD COUNT 7.5 K/uL (4.8-10.8)
[2017-10-05 08:27] LABS: ALB/GLOB RATIO 0.6 (1.0-2.1); ALKALINE PHOSPHATASE 69 U/L (38-126); ALT/SGPT 34 U/L (21-72); AST/SGOT 29 U/L (17-59); BILIRUBIN,TOTAL 0.2 mg/dL (0.2-1.3); BLOOD UREA NITROGEN 66 mg/dL (9-20); CALCIUM 8.3 mg/dl (8.6-10.4); CARBON DIOXIDE 39 mmol/L (22-30); CHLORIDE 117 mmol/L (98-107); GFR AFRICAN-AMERICAN > 60; GLUCOSE,RANDOM 149 mg/dL (75-110); PHOSPHOROUS 3.3 mg/dL (2.5-4.5); POTASSIUM 4.2 mmol/L (3.6-5.2); TOTAL PROTEIN 7.1 g/dL (6.3-8.3)
[2017-10-05 08:39] LABS: CHLORIDE URINE 32 mmol/L (32-290)
[2017-10-05 08:50] LABS: SODIUM 160 mmol/L (132-148)
[2017-10-05] MEDS: (Novolin R) Insulin Human Regular 100 units/ml vial SC SCH ×4 (09:09→21:43)
[2017-10-05] MEDS: Ferrous Sulfate 300 mg/5 mL Liq UD PEG SCH ×3 (09:58→17:22)
--- NOTE | 2017-10-05 09:58 | CP.PCM.CON ---
History of Present Illness - History of Present Illness History of Present Illness: Palliative consult requested by Opal BRIONES for goals of care discussion Patient is a 82 yo male admitted from [place] with episode of apnea. The CXR upon admission was non significant and the EKG was abnormal. patient found to de dehydrated with Na of 158. IVF initiated for re hydration in addition to PEG feedings that were in place already. As per record patient has been non verbal at baseline since the CVA. Consult was called to discuss care plan with family. PMH: anemia, CVA, HTN, dementia, PEG Soc. Hx: , [place] resident Fam. Hx: sister alive and in good health, parents diseased from natural causes Review of Systems - Review of Systems Review of Systems: ROS obtained from nursing. No acute overnight events, patient on )2 via [place] Past Patient History - Infectious Disease Hx of Infectious Diseases: None - Past Medical History & Family History Past Medical History?: Yes - Past Social History Smoking Status: unresponsi Home Situation {Lives}: [facility] (cannot obtain further hx- only from records) - CARDIAC Hx Hypertension: Yes - PULMONARY Other/Comment: Patient has periods of apneic episode - NEUROLOGICAL HX Cerebrovascular Accident: Yes (R ADITI) - ENDOCRINE/METABOLIC Hx Diabetes Mellitus Type 2: Yes - HEMATOLOGICAL/ONCOLOGICAL Hx Anemia: Yes - MUSCULOSKELETAL/RHEUMATOLOGICAL Hx Falls: Yes - GASTROINTESTINAL Other/Comment: G-Tube - GENITOURINARY/GYNECOLOGICAL Hx Prostate Problems: Yes - PSYCHIATRIC Hx Substance Use: No - SURGICAL HISTORY Hx Orthopedic Surgery: Yes (right hip sx) Other/Comment: g-tube - ANESTHESIA Hx Anesthesia: Yes Hx Anesthesia Reactions: No Meds Allergies/Adverse Reactions: Allergies Allergy/AdvReac Type Severity Reaction Status Date / Time No Known Allergies Allergy Verified 05/06/17 13:11 - Medications Medications: Current Medications Acetaminophen (Tylenol 650 Mg Supp) 650 mg [place] Q6 PRN PRN Reason: Fever >100.4 F Albuterol/Ipratropium (Duoneb 3 Mg/0.5 Mg (3 Ml) Ud) 3 ml IH RQ6 [facility] Last Admin: 10/05/17 07:36 Dose: 3 ml Doxazosin Mesylate (Cardura) 2 mg PEG DAILY [facility] Last Admin: 10/04/17 10:55 Dose: 2 mg Epoetin Murtaza (Procrit) 10,000 unit SC MWF [facility] Last Admin: 10/03/17 12:03 Dose: 10,000 unit Famotidine (Pepcid) 20 mg PEG DAILY [facility] Last Admin: 10/04/17 10:55 Dose: 20 mg Ferrous Sulfate (Feosol Liq) 300 mg PEG TID [facility] Last Admin: 10/04/17 18:19 Dose: 300 mg Heparin Sodium (Porcine) (Heparin) 5,000 units SC BID [facility] Last Admin: 10/04/17 18:19 Dose: 5,000 units Dextrose (Dextrose 5% In Water 1000 Ml) 1,000 mls @ 100 mls/hr IV .Q10H [facility] Last Admin: 10/04/17 21:58 Dose: 100 mls/hr Imipenem/Cilastatin Sodium 500 (mg/ Sodium Chloride) 100 mls @ 100 mls/hr IVPB Q8 [facility] Last Admin: 10/05/17 05:51 Dose: 100 mls/hr Insulin Human Regular (Novolin R) 0 unit SC ACHS [facility] PRN Reason: Protocol Last Admin: 10/05/17 09:09 Dose: 2 unit Metoprolol Tartrate (Lopressor) 50 mg PEG Q12H [facility] Last Admin: 10/05/17 05:54 Dose: 50 mg Rosuvastatin Calcium (Crestor) 40 mg PEG HS [facility] Last Admin: 10/04/17 21:57 Dose: 40 mg Physical Exam - Constitutional Appears: No Acute Distress, Chronically Ill - Head Exam Head Exam: ATRAUMATIC, NORMAL INSPECTION, NORMOCEPHALIC - Eye Exam Eye Exam: Normal appearance Pupil Exam: NORMAL ACCOMODATION - ENT Exam ENT Exam: Mucous Membranes Dry - Neck Exam Additional comments: Hyper extended - Respiratory Exam Respiratory Exam: Prolonged Expiratory Phase - Cardiovascular Exam Cardiovascular Exam: Tachycardia - GI/Abdominal Exam GI & Abdominal Exam: Hypoactive Bowel Sounds Additional comments: PEG - Rectal Exam Rectal Exam: Deferred - Exam Exam: NORMAL INSPECTION - Extremities Exam Extremities exam: Positive for: pedal edema - Back Exam Back exam: NORMAL INSPECTION - Neurological Exam Neurological exam: Motor Sensory Deficit - Psychiatric Exam Psychiatric exam: Flat Affect - Skin Skin Exam: Dry, Normal Color Results - Vital Signs Recent Vital Signs: Last Vital Signs Temp 97.6 F 10/05/17 07:50 Pulse 83 10/05/17 07:50 Resp 23 10/05/17 07:50 BP 130/79 10/05/17 07:50 Pulse Ox 92 L 10/05/17 07:50 - Labs Result Diagrams: 10/05/17 07:14 10/05/17 07:14 Labs: Laboratory Results - last 24 hr 10/03/17 10/04/17 10/04/17 18:16 11:05 16:30 WBC RBC Hgb Hct MCV MCH MCHC RDW Plt Count MPV Neut % (Auto) Lymph % (Auto) [place] % (Auto) Eos % (Auto) Baso % (Auto) Neut # Lymph # [place] # Eos # Baso # Sodium Potassium Chloride Carbon Dioxide Anion Gap BUN Creatinine Est GFR ( Amer) Est GFR (Non-Af Amer) POC Glucose (mg/dL) 188 H 209 H Random Glucose Calcium Phosphorus Magnesium Total Bilirubin AST ALT Alkaline Phosphatase Total Protein Albumin Globulin Albumin/Globulin Ratio Urine Chloride 32 10/04/17 10/05/17 10/05/17 20:59 07:14 07:14 WBC 7.5 RBC 2.95 L Hgb 7.7 L Hct 25.8 L MCV 87.4 MCH 26.2 L MCHC 29.9 L RDW 22.6 H Plt Count 119 L MPV 9.9 Neut % (Auto) 76.0 H Lymph % (Auto) 15.6 L [place] % (Auto) 6.5 Eos % (Auto) 1.5 Baso % (Auto) 0.4 Neut # 5.7 Lymph # 1.2 [place] # 0.5 Eos # 0.1 Baso # 0.0 Sodium 160 H* Potassium 4.2 Chloride 117 H Carbon Dioxide 39 H Anion Gap 8 L BUN 66 H Creatinine 0.9 Est GFR ( Amer) > 60 Est GFR (Non-Af Amer) > 60 POC Glucose (mg/dL) 228 H Random Glucose 149 H Calcium 8.3 L Phosphorus 3.3 Magnesium 3.0 H Total Bilirubin 0.2 AST 29 ALT 34 Alkaline Phosphatase 69 Total Protein 7.1 Albumin 2.7 L Globulin 4.3 H Albumin/Globulin Ratio 0.6 L Urine Chloride 10/05/17 07:20 WBC RBC Hgb Hct MCV MCH MCHC RDW Plt Count MPV Neut % (Auto) Lymph % (Auto) [place] % (Auto) Eos % (Auto) Baso % (Auto) Neut # Lymph # [place] # Eos # Baso # Sodium Potassium Chloride Carbon Dioxide Anion Gap BUN Creatinine Est GFR ( Amer) Est GFR (Non-Af Amer) POC Glucose (mg/dL) 187 H Random Glucose Calcium Phosphorus Magnesium Total Bilirubin AST ALT Alkaline Phosphatase Total Protein Albumin Globulin Albumin/Globulin Ratio Urine Chloride Assessment & Plan - Assessment and Plan (Free Text) Assessment: palliative consult Code status DNR/DNI, POLST on chart, PPS 0 % I reviewed medical records, all diagnostic studies, examined patient in the bed and reviewed his clinical presentation with his sister at bed side, was coming in. Patient is unresponsive to stimuli, with eyes closed, mouth open, breathing trough the mouth with neck hyper extended. Patient looks chronically ill. Extremities are contracted with no active ROM. As per sister at bed side, patient has been in this condition for > 6 months. Breath sounds are labored with extended expiratory phase, oral mucousa very dry. Abdomen flat with functioning PEG in place. Mild pedal edema. BP 130/79, HR 83, O2Sat 92 % on NC. WBC 7.5, Hb 7.7, Procrit on board. There is a copy of POLST form on chart signed 08/09/17, indicating DNR/DNI. I spoke to patient's over the phone who agreed to the family meeting today at 11 am. Impression * This is a chronically ill man with episode of apnea most likely due to combination of dehydration and complex medical Hx * Patient is unresponsive and unable to advocate for him self * There is severely decreased quality of life and I do not feel that patient would benfit from any further aggressive treatment Suggestion * Patient would benefit from comfort care only * Would discharge patient back to [facility] on Comfort care only and make him DNH Will discuss goals of care with patient's at 11 am today.
--- NOTE | 2017-10-05 10:13 | CP.PCM.PN ---
Subjective - Date & Time of Evaluation Date of Evaluation: 10/05/17 Time of Evaluation: 10:08 - Subjective Subjective: Medicine Progress Note- Dr Ryan's service Patient seen and examined. No change in clinical condition. Patient is non- verbal per baseline. Continuing tube feeds and water flushes. No acute events overnight. Objective - Vital Signs/Intake and Output Vital Signs (last 24 hours): Temp Pulse Resp BP Pulse Ox 97.6 F 83 23 130/79 92 L 10/05/17 07:50 10/05/17 07:50 10/05/17 07:50 10/05/17 07:50 10/05/17 07:50 Intake and Output: 10/05/17 10/05/17 06:59 18:59 Intake Total 1360 1360 Output Total 300 200 Balance 1060 1160 - Medications Medications: Current Medications Acetaminophen (Tylenol 650 Mg Supp) 650 mg [place] Q6 PRN PRN Reason: Fever >100.4 F Albuterol/Ipratropium (Duoneb 3 Mg/0.5 Mg (3 Ml) Ud) 3 ml IH RQ6 [facility] Last Admin: 10/05/17 07:36 Dose: 3 ml Doxazosin Mesylate (Cardura) 2 mg PEG DAILY [facility] Last Admin: 10/05/17 09:59 Dose: 2 mg Epoetin Murtaza (Procrit) 10,000 unit SC MWF [facility] Last Admin: 10/03/17 12:03 Dose: 10,000 unit Famotidine (Pepcid) 20 mg PEG DAILY [facility] Last Admin: 10/05/17 09:59 Dose: 20 mg Ferrous Sulfate (Feosol Liq) 300 mg PEG TID [facility] Last Admin: 10/05/17 09:58 Dose: 300 mg Dextrose (Dextrose 5% In Water 1000 Ml) 1,000 mls @ 100 mls/hr IV .Q10H [facility] Last Admin: 10/04/17 21:58 Dose: 100 mls/hr Imipenem/Cilastatin Sodium 500 (mg/ Sodium Chloride) 100 mls @ 100 mls/hr IVPB Q8 [facility] Last Admin: 10/05/17 05:51 Dose: 100 mls/hr Insulin Human Regular (Novolin R) 0 unit SC ACHS [facility] PRN Reason: Protocol Last Admin: 10/05/17 09:09 Dose: 2 unit Metoprolol Tartrate (Lopressor) 50 mg PEG Q12H [facility] Last Admin: 10/05/17 05:54 Dose: 50 mg Rosuvastatin Calcium (Crestor) 40 mg PEG HS [facility] Last Admin: 10/04/17 21:57 Dose: 40 mg - Labs Labs: 10/05/17 07:14 10/05/17 07:14 PT 11.2 SECONDS (9.7-12.2) 10/02/17 02:14 INR 1.0 10/02/17 02:14 APTT 31 SECONDS (21-34) 10/02/17 02:14 - Constitutional Appears: No Acute Distress, Chronically Ill - Head Exam Head Exam: ATRAUMATIC, NORMOCEPHALIC - ENT Exam ENT Exam: Mucous Membranes Dry - Respiratory Exam Respiratory Exam: Rhonchi. absent: Accessory Muscle Use, Decreased Breath Sounds - Cardiovascular Exam Cardiovascular Exam: REGULAR RHYTHM, +S1, +S2 - GI/Abdominal Exam GI & Abdominal Exam: Soft, Normal Bowel Sounds. absent: Firm, Guarding Additional comments: PEG tube in place - Extremities Exam Extremities Exam: absent: Pedal Edema - Neurological Exam Neurological Exam: absent: Alert, Awake - Psychiatric Exam Psychiatric exam: absent: Normal Affect, Normal Mood - Skin Skin Exam: Dry, Normal Color, Warm Kapadia catheter in place Assessment and Plan - Assessment and Plan (Free Text) Assessment: Agonal Breathing CXR shows no active disease SpO2 100% on NC patient is DNR/DNI- polst form in chart Monitor vitals q4h Duoneb 3 Mg/0.5 Mg (3 Ml) IH Q6H PRN Hypernatremia Na+ 160 this AM Consulted [employer] Ha[employer] Dr Hamilton, help appreciated- continue free water flushes through peg tube IVF D5W stopped Will monitor bmp daily f/u urine studies JEY BUN improving with IVF Stopped D5W @100cc/hr per nephro recommendations Likely due to dehydration Will hold home med: Metformin Dehydration Improved with fluids and tube feeds Monitor BMP and I/Os Diabetes ISS Crestor 40 mg PEG HS [facility] Accuchecks Home Metformin on hold due to JEY HTN Patient with low BP- home meds with holding parameters Continue Lopressor 50mg PEG Q12H [facility] Norvasc 10 mg PEG DAILY [facility]- STOPPED Vasotec 10 mg GT DAILY [facility]- STOPPED Apresoline 50 mg PEG Q8H [facility]- STOPPED MOnitor vitals q4h Hx Anemia Chronic Hgb stable Monitor CBC daily Continue procrit MWF Ferrous sulfate TID PEG Hx Dementia / CVA Patient non-verbal at baseline, chronic Compazine Rectal Supp 25 mg RC Q12 PRN Tube Feeds via PEG tube- Glucerna 1.5 @45cc/hr, continuous NPO Prophylaxis Tylenol 325mg Tab 650 mg PEG Q4H PRN Pepcid 20 mg PEG DAILY [facility] SCDs PT/OT DNR/DNI code status Management per Dr Ryan
[2017-10-05] MEDS: EPOETIN ALFA 10,000 UNIT/ML ML SC SCH (11:11)
--- NOTE | 2017-10-05 13:07 | CP.PCM.PN ---
Subjective - Date & Time of Evaluation Date of Evaluation: 10/05/17 Time of Evaluation: 13:03 - Subjective Subjective: Same unresponsiveness Respirations poor still pre-renal azotemia better; hypernatremia still elevated Objective - Vital Signs/Intake and Output Vital Signs (last 24 hours): Temp Pulse Resp BP Pulse Ox 97.6 F 83 23 130/79 92 L 10/05/17 07:50 10/05/17 07:50 10/05/17 07:50 10/05/17 07:50 10/05/17 07:50 Intake and Output: 10/05/17 10/05/17 06:59 18:59 Intake Total 1360 1360 Output Total 300 200 Balance 1060 1160 - Medications Medications: Current Medications Acetaminophen (Tylenol 650 Mg Supp) 650 mg [place] Q6 PRN PRN Reason: Fever >100.4 F Albuterol/Ipratropium (Duoneb 3 Mg/0.5 Mg (3 Ml) Ud) 3 ml IH RQ6 [facility] Last Admin: 10/05/17 07:36 Dose: 3 ml Doxazosin Mesylate (Cardura) 2 mg PEG DAILY [facility] Last Admin: 10/05/17 09:59 Dose: 2 mg Epoetin Murtaza (Procrit) 10,000 unit SC MWF [facility] Last Admin: 10/05/17 11:11 Dose: 10,000 unit Famotidine (Pepcid) 20 mg PEG DAILY [facility] Last Admin: 10/05/17 09:59 Dose: 20 mg Ferrous Sulfate (Feosol Liq) 300 mg PEG TID [facility] Last Admin: 10/05/17 09:58 Dose: 300 mg Dextrose (Dextrose 5% In Water 1000 Ml) 1,000 mls @ 100 mls/hr IV .Q10H [facility] Last Admin: 10/04/17 21:58 Dose: 100 mls/hr Imipenem/Cilastatin Sodium 500 (mg/ Dextrose) 100 mls @ 100 mls/hr IVPB Q8 [facility] Insulin Human Regular (Novolin R) 0 unit SC ACHS [facility] PRN Reason: Protocol Last Admin: 10/05/17 11:39 Dose: 3 unit Metoprolol Tartrate (Lopressor) 50 mg PEG Q12H [facility] Last Admin: 10/05/17 05:54 Dose: 50 mg Rosuvastatin Calcium (Crestor) 40 mg PEG HS [facility] Last Admin: 10/04/17 21:57 Dose: 40 mg - Labs Labs: 10/05/17 07:14 10/05/17 07:14 PT 11.2 SECONDS (9.7-12.2) 10/02/17 02:14 INR 1.0 10/02/17 02:14 APTT 31 SECONDS (21-34) 10/02/17 02:14 - Constitutional Appears: In Acute Distress, Chronically Ill - Head Exam Head Exam: ATRAUMATIC, NORMAL INSPECTION - Neck Exam Neck Exam: Normal Inspection. absent: Tenderness - Respiratory Exam Respiratory Exam: Rhonchi, Respiratory Distress - Cardiovascular Exam Cardiovascular Exam: REGULAR RHYTHM, +S1 - GI/Abdominal Exam GI & Abdominal Exam: Soft. absent: Tenderness - Extremities Exam Extremities Exam: Normal Inspection. absent: Tenderness - Neurological Exam Neurological Exam: Altered, Motor Sensory Deficit - Skin Skin Exam: Dry, Warm Assessment and Plan (1) Hypernatremia Status: Acute (2) Dementia Status: Acute (3) History of CVA (cerebrovascular accident) without residual deficits Status: Acute - Assessment and Plan (Free Text) Plan: increase free water flushes Same D5W fluids
[2017-10-05] MEDS: Imipenem/Cilastatin 500 MG in Dextrose 5% In Water 100 ML IVPB SCH ×2 (14:56→21:57)
[2017-10-06] MEDS: Albuterol-Ipratrop 3 mg / 0.5 (3 ml) UD IH SCH ×4 (01:40→20:08)
[2017-10-06] MEDS: Imipenem/Cilastatin 500 MG in Dextrose 5% In Water 100 ML IVPB SCH ×2 (05:02→14:45)
[2017-10-06 07:24] LABS: HEMATOCRIT 26.4 % (35.0-51.0); MEAN CORPUSCULAR HEMOGLOBIN 26.3 pg (27.0-31.0); MEAN CORPUSCULAR HGB CONC 29.9 g/dL (33.0-37.0); MEAN PLATELET VOLUME 10.6 fL (7.2-11.7); WHITE BLOOD COUNT 8.1 K/uL (4.8-10.8)
[2017-10-06] MEDS: (Novolin R) Insulin Human Regular 100 units/ml vial SC SCH ×4 (08:05→22:32)
[2017-10-06 08:09] LABS: BLOOD UREA NITROGEN 54 mg/dL (9-20); CALCIUM 8.1 mg/dl (8.6-10.4); CARBON DIOXIDE 36 mmol/L (22-30); CHLORIDE 113 mmol/L (98-107); GFR AFRICAN-AMERICAN > 60; GLUCOSE,RANDOM 168 mg/dL (75-110); POTASSIUM 4.2 mmol/L (3.6-5.2); SODIUM 152 mmol/L (132-148)
--- NOTE | 2017-10-06 09:06 | CP.PCM.PN ---
Subjective - Date & Time of Evaluation Date of Evaluation: 10/06/17 Time of Evaluation: 09:04 - Subjective Subjective: Notes reviewed Remains on D5w and tube feeding Poorly responsive, unable to provide any history ROS unobtainable due to altered mental status Objective - Vital Signs/Intake and Output Vital Signs (last 24 hours): Temp Pulse Resp BP Pulse Ox 98.6 F 60 20 122/68 100 10/06/17 08:08 10/06/17 08:08 10/06/17 08:08 10/06/17 08:08 10/06/17 08:08 Intake and Output: 10/06/17 10/06/17 06:59 18:59 Intake Total 2720 Output Total 250 Balance 2470 - Medications Medications: Current Medications Acetaminophen (Tylenol 650 Mg Supp) 650 mg [place] Q6 PRN PRN Reason: Fever >100.4 F Albuterol/Ipratropium (Duoneb 3 Mg/0.5 Mg (3 Ml) Ud) 3 ml IH RQ6 [facility] Last Admin: 10/06/17 07:45 Dose: 3 ml Doxazosin Mesylate (Cardura) 2 mg PEG DAILY [facility] Last Admin: 10/05/17 09:59 Dose: 2 mg Epoetin Murtaza (Procrit) 10,000 unit SC MWF [facility] Last Admin: 10/05/17 11:11 Dose: 10,000 unit Famotidine (Pepcid) 20 mg PEG DAILY [facility] Last Admin: 10/05/17 09:59 Dose: 20 mg Ferrous Sulfate (Feosol Liq) 300 mg PEG TID [facility] Last Admin: 10/05/17 17:22 Dose: 300 mg Dextrose (Dextrose 5% In Water 1000 Ml) 1,000 mls @ 100 mls/hr IV .Q10H [facility] Last Admin: 10/06/17 04:27 Dose: 100 mls/hr Imipenem/Cilastatin Sodium 500 (mg/ Dextrose) 100 mls @ 100 mls/hr IVPB Q8 [facility] Last Admin: 10/06/17 05:02 Dose: 100 mls/hr Insulin Human Regular (Novolin R) 0 unit SC ACHS [facility] PRN Reason: Protocol Last Admin: 10/06/17 08:05 Dose: 3 unit Metoprolol Tartrate (Lopressor) 50 mg PEG Q12H [facility] Last Admin: 11/18/17 04:27 Dose: 50 mg Rosuvastatin Calcium (Crestor) 40 mg PEG HS [facility] Last Admin: 10/05/17 21:57 Dose: 40 mg - Labs Labs: 10/06/17 07:10 10/06/17 07:10 PT 11.2 SECONDS (9.7-12.2) 10/02/17 02:14 INR 1.0 10/02/17 02:14 APTT 31 SECONDS (21-34) 10/02/17 02:14 - Constitutional Appears: Non-toxic, Chronically Ill - ENT Exam ENT Exam: Mucous Membranes Moist, Normal Oropharynx - Neck Exam Neck Exam: absent: Lymphadenopathy, Thyromegaly - Respiratory Exam Respiratory Exam: absent: Rales, Rhonchi - Cardiovascular Exam Cardiovascular Exam: +S1, +S2. absent: JVD - GI/Abdominal Exam GI & Abdominal Exam: Soft, Normal Bowel Sounds - Extremities Exam Extremities Exam: absent: Pedal Edema, Tenderness - Neurological Exam Neurological Exam: Awake. absent: Alert, Oriented x3 - Skin Skin Exam: Dry, Intact Assessment and Plan (1) Anemia Status: Acute (2) Dehydration Status: Acute (3) Dementia Status: Acute (4) Hypernatremia Status: Acute (5) History of CVA (cerebrovascular accident) without residual deficits Status: Acute - Assessment and Plan (Free Text) Assessment: Serum sodium improving slowly Tolerating IVF and tube feeding Eventually change to peg water only Anemia eval per admitting team
[2017-10-06] MEDS: Ferrous Sulfate 300 mg/5 mL Liq UD PEG SCH ×3 (10:17→17:37)
[2017-10-06] MEDS: Imipenem/Cilastatin 500 MG in Sodium Chloride 100 ML IVPB SCH (22:32)
[2017-10-07] MEDS: Albuterol-Ipratrop 3 mg / 0.5 (3 ml) UD IH SCH ×5 (01:40→20:24)
[2017-10-07] MEDS: Imipenem/Cilastatin 500 MG in Sodium Chloride 100 ML IVPB SCH ×3 (05:49→22:21)
[2017-10-07] MEDS: (Novolin R) Insulin Human Regular 100 units/ml vial SC SCH ×4 (08:00→22:22)
[2017-10-07 08:35] LABS: HEMATOCRIT 24.8 % (35.0-51.0); MEAN CELL VOLUME 87.4 fL (80.0-94.0); MEAN CORPUSCULAR HEMOGLOBIN 25.7 pg (27.0-31.0); MEAN CORPUSCULAR HGB CONC 29.4 g/dL (33.0-37.0); MEAN PLATELET VOLUME 10.5 fL (7.2-11.7); RED CELL DISTRIBUTION WIDTH 22.1 % (11.5-14.5); WHITE BLOOD COUNT 7.8 K/uL (4.8-10.8)
[2017-10-07 08:57] LABS: BLOOD UREA NITROGEN 38 mg/dL (9-20); CALCIUM 7.9 mg/dl (8.6-10.4); CARBON DIOXIDE 38 mmol/L (22-30); CHLORIDE 109 mmol/L (98-107); GFR AFRICAN-AMERICAN > 60; GLUCOSE,RANDOM 116 mg/dL (75-110); POTASSIUM 4.1 mmol/L (3.6-5.2); SODIUM 148 mmol/L (132-148)
[2017-10-07] MEDS: Ferrous Sulfate 300 mg/5 mL Liq UD PEG SCH ×3 (10:00→18:00)
[2017-10-08] MEDS: Albuterol-Ipratrop 3 mg / 0.5 (3 ml) UD IH SCH ×2 (01:34→08:01)
[2017-10-08] MEDS: Imipenem/Cilastatin 500 MG in Sodium Chloride 100 ML IVPB SCH ×3 (05:19→22:00)
[2017-10-08 07:37] LABS: MEAN CELL VOLUME 87.1 fL (80.0-94.0); MEAN CORPUSCULAR HEMOGLOBIN 26.3 pg (27.0-31.0); MEAN CORPUSCULAR HGB CONC 30.2 g/dL (33.0-37.0); MEAN PLATELET VOLUME 10.6 fL (7.2-11.7); RED CELL DISTRIBUTION WIDTH 21.1 % (11.5-14.5); WHITE BLOOD COUNT 7.8 K/uL (4.8-10.8)
[2017-10-08 08:16] LABS: BLOOD UREA NITROGEN 31 mg/dL (9-20); CALCIUM 7.7 mg/dl (8.6-10.4); CARBON DIOXIDE 36 mmol/L (22-30); CHLORIDE 105 mmol/L (98-107); GFR AFRICAN-AMERICAN > 60; GLUCOSE,RANDOM 165 mg/dL (75-110); POTASSIUM 4.1 mmol/L (3.6-5.2); SODIUM 143 mmol/L (132-148)
[2017-10-08] MEDS: (Novolin R) Insulin Human Regular 100 units/ml vial SC SCH ×4 (08:16→23:01)
--- NOTE | 2017-10-08 08:39 | CP.PCM.PN ---
Subjective - Date & Time of Evaluation Date of Evaluation: 10/08/17 Time of Evaluation: 09:30 - Subjective Subjective: Dr. Ryan note: Patient seen and examined in room. He is non verbal but his sister was in the room with him. Objective - Vital Signs/Intake and Output Vital Signs (last 24 hours): Temp Pulse Resp BP Pulse Ox 98.8 F 86 20 146/67 100 10/08/17 08:00 10/08/17 08:00 10/08/17 08:00 10/08/17 08:00 10/08/17 08:00 Intake and Output: 10/08/17 10/08/17 06:59 18:59 Intake Total 2520 Output Total 200 Balance 2320 - Medications Medications: Current Medications Acetaminophen (Tylenol 650 Mg Supp) 650 mg [place] Q6 PRN PRN Reason: Fever >100.4 F Albuterol/Ipratropium (Duoneb 3 Mg/0.5 Mg (3 Ml) Ud) 3 ml IH RQ6 [facility] Last Admin: 10/08/17 08:01 Dose: 3 ml Doxazosin Mesylate (Cardura) 2 mg PEG DAILY [facility] Last Admin: 10/07/17 10:00 Dose: 2 mg Epoetin Murtaza (Procrit) 10,000 unit SC MWF [facility] Last Admin: 10/05/17 11:11 Dose: 10,000 unit Famotidine (Pepcid) 20 mg PEG DAILY [facility] Last Admin: 10/07/17 12:01 Dose: 20 mg Ferrous Sulfate (Feosol Liq) 300 mg PEG TID [facility] Last Admin: 10/07/17 18:00 Dose: 300 mg Dextrose (Dextrose 5% In Water 1000 Ml) 1,000 mls @ 100 mls/hr IV .Q10H [facility] Last Admin: 10/08/17 05:59 Dose: 100 mls/hr Imipenem/Cilastatin Sodium 500 (mg/ Sodium Chloride) 100 mls @ 100 mls/hr IVPB Q8 [facility] Last Admin: 10/08/17 05:19 Dose: 100 mls/hr Insulin Human Regular (Novolin R) 0 unit SC ACHS [facility] PRN Reason: Protocol Last Admin: 10/08/17 08:16 Dose: Not Given Metoprolol Tartrate (Lopressor) 50 mg PEG Q12H [facility] Last Admin: 10/08/17 05:19 Dose: 50 mg Rosuvastatin Calcium (Crestor) 40 mg PEG HS [facility] Last Admin: 10/07/17 21:47 Dose: 40 mg - Labs Labs: 10/08/17 07:14 10/08/17 07:14 PT 11.2 SECONDS (9.7-12.2) 10/02/17 02:14 INR 1.0 10/02/17 02:14 APTT 31 SECONDS (21-34) 10/02/17 02:14 - Constitutional Appears: Non-toxic, No Acute Distress - Respiratory Exam Respiratory Exam: Clear to Ausculation Bilateral. absent: Rhonchi, Wheezes - Cardiovascular Exam Cardiovascular Exam: REGULAR RHYTHM, +S1, +S2 - GI/Abdominal Exam GI & Abdominal Exam: Soft, Normal Bowel Sounds. absent: Tenderness - Extremities Exam Extremities Exam: Normal Inspection. absent: Pedal Edema Assessment and Plan - Assessment and Plan (Free Text) Assessment: Agonal Breathing 10/08: Patient is discharged to alf per Dr. Ryan, he will continue taking medications via peg tube and tube feeding as well. CXR shows no active disease SpO2 100% on NC patient is DNR/DNI- polst form in chart Monitor vitals q4h Duoneb 3 Mg/0.5 Mg (3 Ml) IH Q6H PRN Hypernatremia 10/08: resolved, Na+ 160 this AM Consulted Aerial Ere[employer] Dr Hamilton, help appreciated- continue free water flushes through peg tube IVF D5W stopped Will monitor bmp daily f/u urine studies JEY 09/07: resolved BUN improving with IVF Stopped D5W @100cc/hr per nephro recommendations Likely due to dehydration Will hold home med: Metformin Dehydration Improved with fluids and tube feeds Monitor BMP and I/Os Diabetes ISS Crestor 40 mg PEG HS [facility] Accuchecks Home Metformin on hold due to JEY HTN Patient with low BP- home meds with holding parameters Continue Lopressor 50mg PEG Q12H [facility] Norvasc 10 mg PEG DAILY [facility]- STOPPED Vasotec 10 mg GT DAILY [facility]- STOPPED Apresoline 50 mg PEG Q8H [facility]- STOPPED MOnitor vitals q4h Hx Anemia Chronic Hgb stable Monitor CBC daily Continue procrit MWF Ferrous sulfate TID PEG Hx Dementia / CVA Patient non-verbal at baseline, chronic Compazine Rectal Supp 25 mg RC Q12 PRN Tube Feeds via PEG tube- Glucerna 1.5 @45cc/hr, continuous NPO Prophylaxis Tylenol 325mg Tab 650 mg PEG Q4H PRN Pepcid 20 mg PEG DAILY [facility] SCDs PT/OT DNR/DNI code status Management per Dr Ryan
[2017-10-08] MEDS: EPOETIN ALFA 10,000 UNIT/ML ML SC SCH (10:00)
[2017-10-08] MEDS: Ferrous Sulfate 300 mg/5 mL Liq UD PEG SCH ×3 (10:01→17:32)
--- NOTE | 2017-10-08 11:32 | CP.PCM.PN ---
Subjective - Date & Time of Evaluation Date of Evaluation: 10/08/17 Time of Evaluation: 11:30 - Subjective Subjective: More alert Off IV fluids as prerenal azotemia and hypernatremia resolved remains on PEG feeds cannot obtain ROS Objective - Vital Signs/Intake and Output Vital Signs (last 24 hours): Temp Pulse Resp BP Pulse Ox 98.8 F 86 20 146/67 100 10/08/17 08:00 10/08/17 08:00 10/08/17 08:00 10/08/17 08:00 10/08/17 08:00 Intake and Output: 10/08/17 10/08/17 06:59 18:59 Intake Total 2520 Output Total 200 Balance 2320 - Medications Medications: Current Medications Acetaminophen (Tylenol 650 Mg Supp) 650 mg [place] Q6 PRN PRN Reason: Fever >100.4 F Doxazosin Mesylate (Cardura) 2 mg PEG DAILY [facility] Last Admin: 10/08/17 10:01 Dose: 2 mg Epoetin Murtaza (Procrit) 10,000 unit SC MWF [facility] Last Admin: 10/08/17 10:00 Dose: 10,000 unit Famotidine (Pepcid) 20 mg PEG DAILY [facility] Last Admin: 10/08/17 10:07 Dose: 20 mg Ferrous Sulfate (Feosol Liq) 300 mg PEG TID [facility] Last Admin: 10/08/17 10:01 Dose: 300 mg Dextrose (Dextrose 5% In Water 1000 Ml) 1,000 mls @ 100 mls/hr IV .Q10H [facility] Last Admin: 10/08/17 05:59 Dose: 100 mls/hr Imipenem/Cilastatin Sodium 500 (mg/ Sodium Chloride) 100 mls @ 100 mls/hr IVPB Q8 [facility] Last Admin: 10/08/17 05:19 Dose: 100 mls/hr Insulin Human Regular (Novolin R) 0 unit SC ACHS [facility] PRN Reason: Protocol Last Admin: 10/08/17 08:16 Dose: Not Given Metoprolol Tartrate (Lopressor) 50 mg PEG Q12H [facility] Last Admin: 10/08/17 05:19 Dose: 50 mg Rosuvastatin Calcium (Crestor) 40 mg PEG HS [facility] Last Admin: 10/07/17 21:47 Dose: 40 mg - Labs Labs: 10/08/17 07:14 10/08/17 07:14 PT 11.2 SECONDS (9.7-12.2) 10/02/17 02:14 INR 1.0 10/02/17 02:14 APTT 31 SECONDS (21-34) 10/02/17 02:14 - Constitutional Appears: No Acute Distress, Chronically Ill - Head Exam Head Exam: ATRAUMATIC, NORMAL INSPECTION - Eye Exam Eye Exam: EOMI, Normal appearance - Neck Exam Neck Exam: Normal Inspection. absent: Tenderness - Respiratory Exam Respiratory Exam: Clear to Ausculation Bilateral, NORMAL BREATHING PATTERN - Cardiovascular Exam Cardiovascular Exam: REGULAR RHYTHM, +S1 - GI/Abdominal Exam GI & Abdominal Exam: Soft. absent: Tenderness - Extremities Exam Extremities Exam: Normal Inspection. absent: Pedal Edema - Neurological Exam Neurological Exam: Altered, Motor Sensory Deficit - Skin Skin Exam: Dry, Warm Assessment and Plan (1) Hypernatremia Status: Resolved (2) Dementia Status: Acute (3) History of CVA (cerebrovascular accident) without residual deficits Status: Acute - Assessment and Plan (Free Text) Plan: agree with cessation IV fluids PEG feeds renal status stable
[2017-10-09] MEDS: Imipenem/Cilastatin 500 MG in Sodium Chloride 100 ML IVPB SCH ×2 (05:25→13:59)
[2017-10-09] MEDS: (Novolin R) Insulin Human Regular 100 units/ml vial SC SCH ×3 (09:00→16:40)
[2017-10-09] MEDS: Ferrous Sulfate 300 mg/5 mL Liq UD PEG SCH ×3 (09:24→17:50)
[2017-10-09 12:02] LABS: BASO % 0.2 % (0.0-2.0); HEMATOCRIT 31.9 % (35.0-51.0); LYMPH # 0.9 K/uL (1.0-4.3); LYMPH % 6.9 % (20.0-40.0); MEAN CELL VOLUME 86.9 fL (80.0-94.0); MEAN CORPUSCULAR HEMOGLOBIN 26.8 pg (27.0-31.0); MEAN CORPUSCULAR HGB CONC 30.8 g/dL (33.0-37.0); MEAN PLATELET VOLUME 10.3 fL (7.2-11.7); MONO # 0.8 K/uL (0.0-0.8); MONO % 6.1 % (0.0-10.0); NRBC % 0.5 % (0.0-2.0); PLATELET COUNT 126 K/uL (130-400); RED CELL DISTRIBUTION WIDTH 20.6 % (11.5-14.5)
--- NOTE | 2017-10-09 12:04 | CP.PCM.PN ---
Subjective - Date & Time of Evaluation Date of Evaluation: 10/09/17 Time of Evaluation: 12:02 - Subjective Subjective: seen and examined high bp noted pt is obtunded, unable to obtain ros Objective - Vital Signs/Intake and Output Vital Signs (last 24 hours): Temp Pulse Resp BP Pulse Ox 98.0 F 85 18 172/91 H 99 10/09/17 10:07 10/09/17 10:07 10/09/17 10:07 10/09/17 10:07 10/09/17 10:07 Intake and Output: 10/09/17 10/09/17 06:59 18:59 Intake Total 1545 Output Total 130 Balance 1415 - Medications Medications: Current Medications Acetaminophen (Tylenol 650 Mg Supp) 650 mg [place] Q6 PRN PRN Reason: Fever >100.4 F Doxazosin Mesylate (Cardura) 2 mg PEG DAILY [facility] Last Admin: 10/09/17 09:24 Dose: 2 mg Epoetin Murtaza (Procrit) 10,000 unit SC MWF [facility] Last Admin: 10/08/17 10:00 Dose: 10,000 unit Famotidine (Pepcid) 20 mg PEG DAILY [facility] Last Admin: 10/09/17 09:24 Dose: 20 mg Ferrous Sulfate (Feosol Liq) 300 mg PEG TID [facility] Last Admin: 10/09/17 09:24 Dose: 300 mg Imipenem/Cilastatin Sodium 500 (mg/ Sodium Chloride) 100 mls @ 100 mls/hr IVPB Q8 [facility] Last Admin: 10/09/17 05:25 Dose: 100 mls/hr Insulin Human Regular (Novolin R) 0 unit SC ACHS [facility] PRN Reason: Protocol Last Admin: 10/09/17 09:00 Dose: Not Given Metoprolol Tartrate (Lopressor) 50 mg PEG Q12H [facility] Last Admin: 10/09/17 03:40 Dose: 50 mg Rosuvastatin Calcium (Crestor) 40 mg PEG HS [facility] Last Admin: 10/08/17 22:00 Dose: 40 mg - Labs Labs: 10/08/17 07:14 10/08/17 07:14 PT 11.2 SECONDS (9.7-12.2) 10/02/17 02:14 INR 1.0 10/02/17 02:14 APTT 31 SECONDS (21-34) 10/02/17 02:14 - Constitutional Appears: Non-toxic, No Acute Distress, Chronically Ill - Head Exam Head Exam: NORMAL INSPECTION - Eye Exam Eye Exam: Normal appearance - ENT Exam ENT Exam: Mucous Membranes Dry - Neck Exam Neck Exam: Normal Inspection - Respiratory Exam Respiratory Exam: Decreased Breath Sounds, NORMAL BREATHING PATTERN - Cardiovascular Exam Cardiovascular Exam: REGULAR RHYTHM, RRR - GI/Abdominal Exam GI & Abdominal Exam: Distended (peg ), Soft - Extremities Exam Extremities Exam: Normal Inspection - Back Exam Back Exam: NORMAL INSPECTION - Skin Skin Exam: Dry, Warm Assessment and Plan (1) Dehydration Status: Acute (2) Dementia Status: Acute (3) Hypernatremia Status: Acute (4) Diabetes mellitus Status: Chronic (5) HTN (hypertension) Status: Chronic - Assessment and Plan (Free Text) Assessment: maintain free water via peg add low dose norvasc
[2017-10-09 12:05] LABS: WHITE BLOOD COUNT 12.4 K/uL (4.8-10.8)
[2017-10-09 12:21] LABS: NEUTROPHIL 88 % (50-75); NUCLEATED RED BLOOD CELL 3 % (0-0); TOTAL CELLS COUNTED 100
--- NOTE | 2017-10-09 15:34 | CP.PCM.PN ---
Subjective - Date & Time of Evaluation Date of Evaluation: 10/09/17 Time of Evaluation: 10:00 - Subjective Subjective: PGY3 on medicine Dr. Ryan service: Pt seen at bedside. Pt nonverbal. ROS not obtainable. S/P 1pRBC transfusion last night. Objective - Vital Signs/Intake and Output Vital Signs (last 24 hours): Temp Pulse Resp BP Pulse Ox 98.0 F 85 18 172/91 H 99 10/09/17 10:07 10/09/17 10:07 10/09/17 10:07 10/09/17 10:07 10/09/17 10:07 Intake and Output: 10/09/17 10/09/17 06:59 18:59 Intake Total 1545 Output Total 130 Balance 1415 - Medications Medications: Current Medications Acetaminophen (Tylenol 650 Mg Supp) 650 mg [place] Q6 PRN PRN Reason: Fever >100.4 F Amlodipine Besylate (Norvasc) 5 mg PO DAILY [facility] Last Admin: 10/09/17 13:59 Dose: 5 mg Doxazosin Mesylate (Cardura) 2 mg PEG DAILY [facility] Last Admin: 10/09/17 09:24 Dose: 2 mg Epoetin Murtaza (Procrit) 10,000 unit SC MWF [facility] Last Admin: 10/08/17 10:00 Dose: 10,000 unit Famotidine (Pepcid) 20 mg PEG DAILY [facility] Last Admin: 10/09/17 09:24 Dose: 20 mg Ferrous Sulfate (Feosol Liq) 300 mg PEG TID [facility] Last Admin: 10/09/17 14:00 Dose: 300 mg Imipenem/Cilastatin Sodium 500 (mg/ Sodium Chloride) 100 mls @ 100 mls/hr IVPB Q8 [facility] Last Admin: 10/09/17 13:59 Dose: 100 mls/hr Insulin Human Regular (Novolin R) 0 unit SC ACHS [facility] PRN Reason: Protocol Last Admin: 10/09/17 12:00 Dose: Not Given Metoprolol Tartrate (Lopressor) 50 mg PEG Q12H [facility] Last Admin: 10/09/17 03:40 Dose: 50 mg Rosuvastatin Calcium (Crestor) 40 mg PEG HS [facility] Last Admin: 10/08/17 22:00 Dose: 40 mg - Labs Labs: 10/09/17 11:52 10/08/17 07:14 PT 11.2 SECONDS (9.7-12.2) 10/02/17 02:14 INR 1.0 10/02/17 02:14 APTT 31 SECONDS (21-34) 10/02/17 02:14 - Constitutional Appears: Non-toxic, No Acute Distress, Cachectic, Chronically Ill - Respiratory Exam Respiratory Exam: Clear to Ausculation Bilateral, NORMAL BREATHING PATTERN. absent: Wheezes - Cardiovascular Exam Cardiovascular Exam: REGULAR RHYTHM, +S1, +S2. absent: Gallop Assessment and Plan - Assessment and Plan (Free Text) Assessment: Hx Anemia S/P 1U pRBC transfusion last night. Hgb responded appropriately. Chronic Continue procrit MWF Ferrous sulfate TID PEG Agonal Breathing 10/09: Patient is discharged to SNF per Dr. Ryan, he will continue taking medications via peg tube and tube feeding as well. CXR shows no active disease SpO2 100% on NC patient is DNR/DNI- polst form in chart Monitor vitals q4h Duoneb 3 Mg/0.5 Mg (3 Ml) IH Q6H PRN Hypernatremia 10/08: resolved, Na+ 160 this AM Consulted Bulb Grower Dr Hamilton, help appreciated- continue free water flushes through peg tube IVF D5W stopped Will monitor bmp daily f/u urine studies JEY 09/07: resolved BUN improving with IVF Stopped D5W @100cc/hr per nephro recommendations Likely due to dehydration Will hold home med: Metformin Dehydration Improved with fluids and tube feeds Monitor BMP and I/Os Diabetes ISS Crestor 40 mg PEG HS [facility] Accuchecks Home Metformin on hold due to JEY HTN Patient with low BP- home meds with holding parameters Continue Lopressor 50mg PEG Q12H [facility] Norvasc 10 mg PEG DAILY [facility]- STOPPED Vasotec 10 mg GT DAILY [facility]- STOPPED Apresoline 50 mg PEG Q8H [facility]- STOPPED MOnitor vitals q4h Hx Dementia / CVA Patient non-verbal at baseline, chronic Compazine Rectal Supp 25 mg RC Q12 PRN Tube Feeds via PEG tube- Glucerna 1.5 @45cc/hr, continuous NPO Prophylaxis Tylenol 325mg Tab 650 mg PEG Q4H PRN Pepcid 20 mg PEG DAILY [facility] SCDs PT/OT DNR/DNI code status Management per Dr Ryan
[2017-10-09] MEDS ORDERED: Albuterol-Ipratrop 3 mg / 0.5 (3 ml) UD INH SCH (15:53)
[2017-10-09 16:56] VITALS: BP 142/74; PULSE 107; RESP 20; TEMP 98.9; O2SAT 97
[2017-10-09] MEDS ORDERED: Imipenem/Cilastatin 500 MG in Dextrose 5% In Water 100 ML IVPB SCH (22:00)
== END 2017-10-09 20:45 | DRG 871 ==
LOC: C.ER 19:08 → C.9E 22:18 → C.3T 10-02 06:16
PROVIDERS: ADMIT Internal Medicine Pulmonary Disease; ATTEND Internal Medicine Pulmonary Disease
PROC: 30253N1 (ICD-10-PCS; principal; 2017-10-08)
DX: A41.9 Sepsis, unspecified organism (principal); J69.0 Pneumonitis due to inhalation of food and vomit; N17.9 Acute kidney failure, unspecified; E87.0 Hyperosmolality and hypernatremia; E11.9 Type 2 diabetes mellitus without complications; I95.9 Hypotension, unspecified; N39.0 Urinary tract infection, site not specified; F03.90 Unspecified dementia, unspecified severity, without behavioral disturbance, psychotic disturbance, mood disturbance, and anxiety; Z93.1 Gastrostomy status; D64.9 Anemia, unspecified; E86.0 Dehydration; I10 Essential (primary) hypertension; Z66 Do not resuscitate; Z86.73 Personal history of transient ischemic attack (TIA), and cerebral infarction without residual deficits; R79.89 Other specified abnormal findings of blood chemistry; M24.50 Contracture, unspecified joint